=== PATIENT | male | born 1950 | race Caucasian/White ===

== ENCOUNTER → 2021-03-05 10:06 | Outpatient (BNVA) | payer MEDICARE, SELFPAY | PROVIDERS: PCP Internal Medicine; Referring Provider Internal Medicine; Visit Provider Internal Medicine Cardiovascular Disease | DX: I25.10 Atherosclerotic heart disease of native coronary artery without angina pectoris (principal); E78.5 Hyperlipidemia, unspecified; I10 Essential (primary) hypertension; R60.0 Localized edema | CPT/HCPCS: 93005; 99212 ==

== ENCOUNTER → 2021-03-14 09:03 | Outpatient (REF) | payer MEDICARE, SELFPAY ==
--- NOTE | 2021-03-14 09:17 | CA_ITS ---
Transthoracic Echocardiogram Patient (Last, First, Middle): Erik Jung F Gender: Male Date of : 1950 Age: 70 Procedure Date: 03/14/2021 Procedure Type: Transthoracic Echocardiogram Location: OP Height: 182.88 cm Weight: 96.62 kg BSA: 2.19 m2 Heart Rate: bpm BP: 164 / 91 mmHg Aircraft Powertrain Repairer: DOMINIK Referring MD: Rene Diaz MD Panel Instrument Repairer: Rene Diaz MD Symptoms: R60.0 - Localized edema Study Quality: Technically Difficult ECG Rhythm: Sinus Conclusions: - 1. Normal LV systolic function with mild LVH with grade 1 diastolic dysfunction 2. Mild to moderate mitral regurgitation 3. No gross pericardial effusion Findings Left Ventricle Normal left ventricular size and systolic function. There is mildly increased left ventricular wall thickness. The visually estimated ejection fraction is between 55-60%. Spectral Doppler is indicative of an impaired relaxation filling pattern. E/E prime ratio is <8, consistent with normal filling pressures. Evidence suggests grade I (mild) diastolic dysfunction. Right Ventricle Normal right ventricular cavity size and systolic function. Atria The left atrium is normal in size. There is a mobile atrial septum noted. Interatrial shunt cannot be excluded. The right atrium is normal in size. Aortic Valve The aortic valve structure and function is likely normal. There is no aortic valve stenosis. There is trace (trivial) aortic valve regurgitation. Mitral Valve Likely normal mitral valve structure and function. There is mild anterior and posterior mitral leaflet thickening. There is mild to moderate mitral valve regurgitation. There is no mitral valve stenosis. Pulmonic Valve The pulmonic valve was not well visualized. Tricuspid Valve The tricuspid valve was not well visualized. Tricuspid regurgitation envelope is inadequate for calculation of right ventricular systolic pressure. Great Vessels All visible segments of the aorta are normal in size. The pulmonary artery was not well visualized. Venous The inferior vena cava is normal in size and collapses greater than 50% with inspiration. Pericardium/Pleural There is no evidence of pericardial effusion. Prior Study Comparison Changes noted compared to prior study dated: 01/26/2018. Mitral regurgitation noted to be [id number] Measurements M-Mode Liner Measurements Normals - Women/Men AOV Cusps: 2.40 1.5-2.6 cm/m2 2D Linear Measurements IVSd: 1.35 0.6-0.9/0.6-1.0 cm LVIDd: 5.49 3.9-5.3/4.2-5.9 cm LVIDd Index: 2.51 2.4-3.2/2.2-3.1 cm/m2 LVIDs: 4.14 2.0-3.6 cm LVPWd: 1.34 0.7-1.1 cm Ao Root: 4.00 2.1-3.5 cm LA Diam: 4.30 2.7-3.8/3.0-4.0 cm LAIDs Index: 1.96 1.5-2.3 cm/m2 LV Mass: 416.15 67-162/88-224 g LV Mass Index: 190.02 43-95/49-115 g/m2 LVOT Diam: 2.10 3.0+(-)1.3 cm 2D Systolic Function EF 4C: 55.10 >55% EF 2C: 50.90 >55% EF BiP: 54.50 >55% Mitral Valve MV Pk E: 0.53 MV PK A: 0.92 MV Decel Time: 224.00 E/A: 0.60 E'Lateral: 4.68 E'Medial: 4.35 E/E' Med: 12.20 E/E' Lat: 11.30 PHT: 66.00 MVA PHT: 3.33 Decel Jenkins: 2.38 Aortic Valve AoV Pk Rojas: 1.38 AoV Mn Rojas: 1.00 AoV VTI: 0.29 AoV Pk Grad: 8.00 Aov Mn Grad: 4.00 PRASHANT Cont.VTI: 2.90 AI Pk Rojas: 4.04 AI Jenkins: 1.90 LVOT LVOT Pk Rojas: 1.10 LVOT Mn Rojas: 0.79 LVOT VTI: 0.24 LVOT Pk Grad: 5.00 LVOT Mn Grad: 3.00 LVOT Diam: 2.10 LVOT Area: 3.46 Diastolic Function MV Pk E: 0.53 MV Pk A: 0.92 E/A: 0.60 E'Medial: 4.35 E/E' Med: 12.20 E' Laterial: 4.68 E/E' Lat: 11.30 Tricuspid Valve RA Press: 3.00 Great Vessels Aorta Ao Root-2D: 4.00 2.0-3.7 cm Ao Asc: 3.20 2.1-3.4 cm Ao Arch: 3.20 Updated in Other Vendor System with Status of Final Rene Diaz MD electronically signed on 03/15/2021 8:57:25 AM with status of Final
== END ==
LOC: HO.CARD 09:03
PROVIDERS: PCP Internal Medicine; Visit Provider Internal Medicine Cardiovascular Disease
DX: R60.0 Localized edema (principal)
CPT/HCPCS: 93306

== ENCOUNTER → 2021-03-28 11:36 | Outpatient (BNVA) | payer MEDICARE, SELFPAY | PROVIDERS: PCP Internal Medicine; Visit Provider Internal Medicine Cardiovascular Disease | DX: R60.0 Localized edema (principal); I25.10 Atherosclerotic heart disease of native coronary artery without angina pectoris; I10 Essential (primary) hypertension | CPT/HCPCS: Q3014 ==

== ENCOUNTER → 2021-04-17 14:23 | Outpatient (BNVA) | payer MEDICARE, SELFPAY | PROVIDERS: PCP Internal Medicine; Referring Provider Internal Medicine; Visit Provider Internal Medicine Cardiovascular Disease | DX: R60.0 Localized edema (principal); I25.10 Atherosclerotic heart disease of native coronary artery without angina pectoris; I10 Essential (primary) hypertension | CPT/HCPCS: 99212 ==

== ENCOUNTER 2021-07-04 13:49 | Emergency (ER) | payer MEDICARE, SELFPAY ==
--- NOTE | ~2021-07-04 | CT_ITS ---
EXAMINATION: CT HEAD WITHOUT CONTRAST CLINICAL INFORMATION: TIA symptoms COMPARISON: 05/02/2020 TECHNIQUE: Contiguous axial imaging was performed from the skull base to vertex without intravenous contrast. This CT examination was performed using dose optimization techniques as appropriate, variously including the following: * Automated exposure control * Adjustment of mA and/or kV according to patient size (this includes techniques or standardized protocols for targeted exams where dose is matched to indication/reason for exam; i.e. extremities or head) Use of iterative reconstruction technique DLP: 828 mGy-cm. FINDINGS: There is no evidence of acute intracranial hemorrhage or territorial infarction. No abnormal mass effect or midline shift is seen. Ellis to white matter differentiation is well preserved. No extra-axial fluid collections are identified. No hydrocephalus. No significant volume loss. There is no abnormal attenuation within the brain parenchyma. The osseous structures and soft tissues are normal. The mastoid air cells and visualized portions of the paranasal sinuses are well aerated. CT/CT head/brain wo con IMPRESSION: No acute intracranial pathology.
--- NOTE | ~2021-07-04 | XR_ITS ---
EXAMINATION: XR CHEST CLINICAL INFORMATION: Dyspnea. COMPARISON: Chest radiograph dated from 10/10/2013. TECHNIQUE: 2 views of the chest were obtained. FINDINGS: Unchanged appearance of the cardiomediastinal silhouette. There are increased streaky opacities in the lung bases, likely related with subsegmental atelectases or parenchymal scarring. No focal consolidation, pleural effusion or pneumothorax. No acute osseous abnormalities. XR/XR chest 2V IMPRESSION: Subsegmental atelectases and/or parenchymal scarring in the lung bases. No focal consolidation.
[2021-07-04 14:05] VITALS: BP 134/79; PULSE 80; RESP 18; TEMP 36.7; O2SAT 94; BMI 27.7
--- NOTE | 2021-07-04 14:12 | ECG_ITS ---
Test Reason : DYSPNEA Blood Pressure : / mmHG Vent. Rate : 080 BPM Atrial Rate : 080 BPM P-R Int : 154 ms QRS Dur : 112 ms QT Int : 402 ms P-R-T Axes : -01 -40 041 degrees QTc Int : 463 ms Normal sinus rhythm Left axis deviation Voltage criteria for left ventricular hypertrophy Abnormal ECG When compared with ECG of 24-APR-2020 10:42, No significant change was found Referred By: Generic ED Physician Electronically Signed By:LOGAN PARKER
[2021-07-04 15:31] LABS: MANUAL DIFF FLAG NO
[2021-07-04 15:34] LABS: Basophils Percent Auto 0.4 % (0-2); Eosinophils Absolute Auto 0.2 X10*3/uL (0.0-0.4); Eosinophils Percent Auto 1.9 % (0-4); Hematocrit 45.5 % (42-52); Hemoglobin 15.7 g/dl (14.0-18.0); Imm Gran Abs Auto 0.05 X10*3/uL (0.00-0.03); Imm Gran Pct Auto 0.5 % (0.0-0.4); Lymphocytes Absolute Auto 0.9 X10*3/uL (1.2-4.9); Lymphocytes Percent Auto 8.4 % (20-40); Mean Corpuscular HGB Conc 34.5 g/dl (31.0-36.0); Mean Corpuscular Hemoglobin 32.3 pg (27.0-33.0); Mean Corpuscular Volume 93.6 fL (80-98); Mean Platelet Volume 9.5 fL (9.4-12.4); Monocytes Percent Auto 9.5 % (2-11); Neutrophils Percent Auto 79.3 % (45-73); Platelet Count 226 X10*3/uL (160-400); Red Blood Count 4.86 X10*6/uL (4.60-5.80); Red Cell Distribution Width 14.4 % (11.0-16.0); White Blood Count 10.1 X10*3/uL (4.8-10.8)
[2021-07-04 15:47] LABS: Alanine Aminotransferase 29 U/L (0-40); Albumin Level 4.6 g/dL (3.5-5.0); Alkaline Phosphatase 59 U/L (39-117); Anion Gap 14 (12-20); Aspartate Amino Transferase 26 U/L (5-37); Bilirubin Total 0.6 mg/dL (0.0-1.0); Blood Urea Nitrogen 14 mg/dL (9-16); Calcium 9.5 mg/dL (8.4-10.2); Carbon Dioxide 29 mmol/L (22-29); Chloride 103 mmol/L (96-108); Creatinine Clr Calc Pharmacy 83.5; Estimated Glomerular Filt Rate > 60; Glucose Random 107 mg/dL (60-115); Potassium 3.4 mmol/L (3.3-5.1); Sodium 143 mmol/L (135-145); Total Protein 7.2 g/dL (6.5-8.0)
[2021-07-04 15:48] LABS: COVID-19 Test Negative (Negative)
[2021-07-04 18:00] VITALS: BP 174/95; PULSE 81; RESP 19; O2SAT 94
--- NOTE | 2021-07-04 18:50 | ED.GENADULT ---
HPI - General Adult General Chief complaint: Dyspnea Stated complaint: SPURRED SPEACH UNSTEADY Time Seen by Provider: 07/04/21 18:49 Source: patient and family Mode of arrival: ambulatory Limitations: no limitations History of Present Illness HPI narrative: A 71-year-old male came in for evaluation of difficulty breathing last night and episode of abnormal speech noted by the . Patient with history of insomnia, patient last night felt his chest is congested (almost like he is coming down with flu), patient could not sleep last night, patient was tumbling last night, then in the morning patient noted by his that he had slurred speech. Patient also complaining of dyspnea last night mostly orthopnea patient needed multiple pillows to be able to sleep, patient is taking Lasix for lower extremities edema. During the day all the symptoms started to improve gradually, patient now back to his baseline. Patient was seen by Dr. Diaz ( cardiology) had an echocardiogram which appear no significant abnormalities. Related Data Home Medications Medication Instructions Recorded Confirmed trazodone 50 mg tablet 25 mg PO BEDTIME tab 03/28/21 04/17/21 Previous Rx's Medication Instructions Recorded furosemide 20 mg tablet 20 mg PO DAILY #90 tab 02/18/21 amlodipine 5 mg tablet 5 mg PO DAILY #90 tab 03/28/21 carvedilol 12.5 mg tablet (Coreg) 12.5 mg PO BID 90 Days #180 tab 04/17/21 Allergies Allergy/AdvReac Type Severity Reaction Status Date / Time meperidine [Demerol] Allergy Unknown Unknown Verified 07/04/21 14:05 nitroglycerin [NITROGLYCERIN] Allergy Unknown HYPOTENSION, Verified 07/04/21 14:05 no reactions were documented Review of Systems Review of Systems: All other systems are reviewed and are negative Constitutional: Reports as per HPI and Reports no additional constitutional complaints Eyes: Reports as per HPI and Reports no additional eye complaints Reports system reviewed and no additional complaints, except as documented Cardiovascular: Reports as per HPI and Reports no additional cardiovascular complaints Respiratory: Reports as per HPI and Reports no additional respiratory complaints Gastrointestinal: Reports as per HPI and Reports no additional gastrointestinal complaints Genitourinary: Reports no additional female genitourinary complaints Musculoskeletal: Reports no additional musculoskeletal complaints Skin/Breast: Reports system reviewed and no additional complaints, except as docu Psychiatric: Reports no additional psychiatric complaints Endocrine: Reports no additional endocrine complaints Hematologic/Lymphatic: Reports no additional hematologic/lymphatic complaints Allergic/Immunologic: Reports no additional allergic/immunologic complaints Reports system reviewed and no additional complaints, except as documented and Reports Abnormal speech present [facility] Past Medical History Medical History CAD (coronary artery disease) Hyperlipidemia Hypertension Surgical History H/O rectal polypectomy History of surgery Family History Family History Father No problems noted. Mother Heart disease Brother CAD (coronary artery disease) Paternal Uncle Myocardial infarction Social History Social History Alcohol intake: current Alcohol intake frequency: a few times a week Alcohol type: hard liquor Patient Tobacco Use Status: Former Tobacco user Smoked in Last 30 Days: No Advance Directives: Yes Advance Directives Information Provided: Yes Advance Directives on File: No Physical Exam Vital Signs: Vital Signs: Last Vital Signs Temp 98.0 F 07/04/21 20:00 Pulse 83 07/04/21 20:00 Resp 16 07/04/21 20:00 BP 173/102 H 07/04/21 20:00 Pulse Ox 93 07/04/21 20:00 Body Mass Index 27.7 Vital signs have been reviewed as appeared to be correct. Blood pressure normal. Heart rate normal. Respiration rate normal. Temperature normal. Oxygen saturation normal. Appearance: Alert. Oriented X3. No acute distress. Head: Normal external exam. Normocephalic. Atraumatic. No Gorman signs noted. No raccoon eyes noted Eyes: PERRLA. EOMI. Conjunctiva and sclera normal. Eyelids normal. ENT: TM's Normal. Pharynx normal. Uvula midline. Moist mucous membranes. No trismus noted. No drooling noted. No muffled voice noted. Neck: Normal inspection. Neck supple. FROM. No adenopathy. Thyroid Normal. No meningeal signs. No neck mass noted. CVS: Normal heart rate and rhythm. Heart sound normal. No murmurs noted. Pulses normal throughout. Respiratory: No respiratory distress. Painless inspiration. Breath sounds normal. No wheezes/rales/rhonchi noted. Chest nontender. No accessory muscle usage noted or decreased air movement noted. Abdomen: Soft and nontender. Bowel sounds normal in all 4 quadrants. No distention noted. No organomegaly noted. No visible injury noted. Back: No CVA tenderness. Full range of motion noted. Skin: Skin warm and dry. Normal skin color. Normal skin turgor. No rashes/lesions/lacerations noted. Extremities: No lower extremity edema. Extremities exhibit normal range of motion. Extremities nontender. Neuro: Oriented X 3. Cranial nerve exam: II-XII are grossly intact No motor deficit. No sensory deficit. Reflexes normal. NIH Stroke Scale Level of Consciousness: Alert Level of Consciousness Questions: Answers both questions correctly Level of Consciousness Commands: Performs both tasks correctly Best Gaze: Normal Visual: No visual loss Facial Palsy: Normal Motor Arm (Right): No drift Motor Arm (Left): No drift Motor Leg (Right): No drift Motor Leg (Left): No drift Limb Ataxia: Absent Sensory: Normal Best Language: No aphasia Dysarthia: Normal Extinction and Inattention: No abnormality Score: 0 Course Course Course Narrative: Assessment and plan. 71-year-old male with history of chronic insomnia came in with symptoms of orthopnea, was stumbling last night, and noticed to have some difficulty with speech this morning, all symptoms resolved, patient has unremarkable finding today, patient had a recent cardiology evaluation with echo which was unremarkable, CT head/neuro exam is unremarkable, patient do not want stay in the hospital would like to go home. Will discharge the patient to follow-up with PCP. Medical Decision Making Lab Data Lab results reviewed: Yes I reviewed the patient's lab results. Result diagrams: 07/04/21 15:24 07/04/21 15:24 Labs: Lab Results 07/04/21 07/04/21 07/04/21 Range/Units 15:20 15:24 15:24 WBC 10.1 (4.8-10.8) X10*3/uL RBC 4.86 (4.60-5.80) X10*6/uL Hgb 15.7 (14.0-18.0) g/dl Hct 45.5 (42-52) % MCV 93.6 (80-98) fL MCH 32.3 (27.0-33.0) pg MCHC 34.5 (31.0-36.0) g/dl RDW 14.4 (11.0-16.0) % Plt Count 226 (160-400) X10*3/uL MPV 9.5 (9.4-12.4) fL Immature Gran % (Auto) 0.5 H (0.0-0.4) % Neut % (Auto) 79.3 H (45-73) % Lymph % (Auto) 8.4 L (20-40) % Schley % (Auto) 9.5 (2-11) % Eos % (Auto) 1.9 (0-4) % Baso % (Auto) 0.4 (0-2) % Lymph # (Auto) 0.9 L (1.2-4.9) X10*3/uL Schley # (Auto) 1.0 (0.1-1.2) X10*3/uL Eos # (Auto) 0.2 (0.0-0.4) X10*3/uL Baso # (Auto) 0.0 (0.0-0.2) X10*3/uL Abs Immat Gran (auto) 0.05 H (0.00-0.03) X10*3/uL Absolute Neuts (auto) 8.0 (2.0-8.3) X10*3/uL Absolute Nucleated RBC 0.000 (0.0-0.012) X10*3/uL Nucleated RBC % (auto) 0.0 (0.0-0.2) /100WBC Sodium 143 (135-145) mmol/L Potassium 3.4 (3.3-5.1) mmol/L Chloride 103 (96-108) mmol/L Carbon Dioxide 29 (22-29) mmol/L Anion Gap 14 (12-20) BUN 14 (9-16) mg/dL Creatinine 0.89 (0.5-1.4) mg/dL Estim Creat Clear Calc 83.5 Estimated GFR > 60 Random Glucose 107 (60-115) mg/dL Calcium 9.5 (8.4-10.2) mg/dL Total Bilirubin 0.6 (0.0-1.0) mg/dL AST 26 (5-37) U/L ALT 29 (0-40) U/L Alkaline Phosphatase 59 (39-117) U/L Troponin I High Sens (<3.5-35.0) ng/L B-Natriuretic Peptide (<100) pg/mL Total Protein 7.2 (6.5-8.0) g/dL Albumin 4.6 (3.5-5.0) g/dL COVID-19 (ROSIO) Negative (Negative) COVID-19 Clin Com See Note 07/04/21 Range/Units 20:39 WBC (4.8-10.8) X10*3/uL RBC (4.60-5.80) X10*6/uL Hgb (14.0-18.0) g/dl Hct (42-52) % MCV (80-98) fL MCH (27.0-33.0) pg MCHC (31.0-36.0) g/dl RDW (11.0-16.0) % Plt Count (160-400) X10*3/uL MPV (9.4-12.4) fL Immature Gran % (Auto) (0.0-0.4) % Neut % (Auto) (45-73) % Lymph % (Auto) (20-40) % Schley % (Auto) (2-11) % Eos % (Auto) (0-4) % Baso % (Auto) (0-2) % Lymph # (Auto) (1.2-4.9) X10*3/uL Schley # (Auto) (0.1-1.2) X10*3/uL Eos # (Auto) (0.0-0.4) X10*3/uL Baso # (Auto) (0.0-0.2) X10*3/uL Abs Immat Gran (auto) (0.00-0.03) X10*3/uL Absolute Neuts (auto) (2.0-8.3) X10*3/uL Absolute Nucleated RBC (0.0-0.012) X10*3/uL Nucleated RBC % (auto) (0.0-0.2) /100WBC Sodium (135-145) mmol/L Potassium (3.3-5.1) mmol/L Chloride (96-108) mmol/L Carbon Dioxide (22-29) mmol/L Anion Gap (12-20) BUN (9-16) mg/dL Creatinine (0.5-1.4) mg/dL Estim Creat Clear Calc Estimated GFR Random Glucose (60-115) mg/dL Calcium (8.4-10.2) mg/dL Total Bilirubin (0.0-1.0) mg/dL AST (5-37) U/L ALT (0-40) U/L Alkaline Phosphatase (39-117) U/L Troponin I High Sens 29.6 (<3.5-35.0) ng/L B-Natriuretic Peptide < 10 (<100) pg/mL Total Protein (6.5-8.0) g/dL Albumin (3.5-5.0) g/dL COVID-19 (ROSIO) (Negative) COVID-19 Clin Com Imaging Data CT scan - head: Radiologist's impression: No acute intracranial pathology. Chest x-ray: Radiologist's impression: Subsegmental atelectases and/ or parenchymal scarring in the lung bases no focal consolidation. ECG Data Attestation: I personally reviewed and interpreted this ECG as follows: Interpretation: Normal sinus rhythm at 80 beats per minutes, left axis deviation, LVH, no ST-T changes. Discharge Plan Discharge Clinical Impression: Insomnia, Hypertension Patient Disposition: Home, Self-Care Instructions: Insomnia (ED) Prescriptions: No Action furosemide 20 mg tablet 20 mg PO DAILY Qty: 90 RF: 8 trazodone 50 mg tablet 25 mg PO BEDTIME RF: 0 amlodipine 5 mg tablet 5 mg PO DAILY Qty: 90 RF: 1 carvedilol [Coreg] 12.5 mg tablet 12.5 mg PO BID 90 Days Qty: 180 RF: 1 Referrals: Federico Falcon MD [Primary Care Provider] - 2 days
[2021-07-04 20:00] VITALS: BP 173/102; PULSE 83; RESP 16; TEMP 36.7; O2SAT 93
[2021-07-04 21:10] LABS: B Type Natriuretic Peptide < 10 pg/mL (<100); Troponin-I High Sensitivity 29.6 ng/L (<3.5-35.0)
--- NOTE | 2021-07-04 21:25 | PC.NURSE ---
pt denies chest pain and no sob. pt is waiting to go home and feels ready.
== END 2021-07-04 21:58 | disposition home or self-care (01) ==
PROVIDERS: Emergency Provider Emergency Medicine; PCP Internal Medicine
DX: G47.00 Insomnia, unspecified (principal); R06.02 Shortness of breath; R09.89 Other specified symptoms and signs involving the circulatory and respiratory systems; I10 Essential (primary) hypertension; R29.700 NIHSS score 0; I25.10 Atherosclerotic heart disease of native coronary artery without angina pectoris; Z20.822 Contact with and (suspected) exposure to COVID-19; Z79.899 Other long term (current) drug therapy
CPT/HCPCS: 36415; 70450; 71046; 80053; 83880; 84484; 85025; 87635; 93005; 99284

== ENCOUNTER 2021-10-03 10:44 | Outpatient (REF) | payer MEDICARE, SELFPAY ==
--- NOTE | ~2021-10-03 | CT_ITS ---
EXAMINATION: CT SINUS WITHOUT CONTRAST CLINICAL INFORMATION: Chronic sinusitis. COMPARISON: CT scan of the head 07/04/2021. TECHNIQUE: Multidetector helical imaging was performed in the axial plane with generation of coronal and sagittal reformatted images. This CT examination was performed using dose optimization techniques as appropriate, variously including the following: *Automated exposure control *Adjustment of mA and/or kV according to patient size (this includes techniques or standardized protocols for targeted exams where dose is matched to indication/reason for exam; i.e. extremities or head) *Use of iterative reconstruction technique DLP: 133 mGy-cm. FINDINGS: FRONTAL SINUSES AND DRAINAGE PATHWAYS: The right frontal sinus is relatively small. Both frontal sinuses are well-aerated with patent frontoethmoidal recesses. MAXILLARY SINUSES AND DRAINAGE PATHWAYS: The maxillary sinuses are well-developed bilaterally. There is mild polypoid mucoperiosteal thickening along the inferior maxillary sinuses bilaterally. The ostiomeatal complexes are patent bilaterally. ETHMOID SINUSES: The ethmoid sinuses are well-developed bilaterally. There is minimal mucoperiosteal thickening in the anterior right ethmoid air cells. There is trace mucoperiosteal thickening in the posterior ethmoid air cells and the left. SPHENOID SINUSES AND DRAINAGE PATHWAYS: The sphenoid sinuses are well-aerated bilaterally. They are clear with patent sphenoethmoidal recesses. NASAL CAVITY AND NASAL SEPTUM: Anteriorly, the nasal septum is deviated to the right and slightly toward the left more posteriorly. There are no large bony nasal septal spurs. There are no large nasal cavity polyps or masses. ADDITIONAL RELEVANT FINDINGS: The lamina papyracea are intact. The carotid canals are normally covered by bone. The ethmoid roofs are symmetric. There appear to be small residual roots of anterior maxillary teeth bilaterally with root fillings. The TMJs and orbits are normal. The mastoid air cells are clear. There are no acute intracranial findings. CT/CT sinus wo con IMPRESSION: 1. There is no significant active sinus disease. There is mild mucoperiosteal thickening in multiple sinuses as described above. 2. There is deviation of the nasal septum is described above. There are no large nasal septal spurs. 3. The ostiomeatal complexes are patent bilaterally.
== END 2021-10-03 10:45 | disposition home or self-care (01) ==
LOC: HO.CT 10:44
PROVIDERS: PCP Internal Medicine; Visit Provider Internal Medicine
DX: J32.9 Chronic sinusitis, unspecified (principal)
CPT/HCPCS: 70486

== ENCOUNTER → 2021-10-24 08:59 | Outpatient (BNVA) | payer MEDICARE, SELFPAY | PROVIDERS: PCP Internal Medicine; Referring Provider Internal Medicine; Visit Provider Internal Medicine Cardiovascular Disease | DX: I25.10 Atherosclerotic heart disease of native coronary artery without angina pectoris (principal); I10 Essential (primary) hypertension | CPT/HCPCS: 99212 ==

== ENCOUNTER → 2022-10-24 09:00 | Outpatient (BNVA) | payer MEDICARE, SELFPAY | PROVIDERS: PCP Internal Medicine; Referring Provider Internal Medicine; Visit Provider Internal Medicine Cardiovascular Disease | DX: I25.10 Atherosclerotic heart disease of native coronary artery without angina pectoris (principal); I10 Essential (primary) hypertension | CPT/HCPCS: 93005; 99212 ==

== ENCOUNTER 2023-01-07 09:28 | Outpatient (REF) | payer MEDICARE, SELFPAY | END 2023-01-07 09:29 | disposition home or self-care (01) | LOC: HO.LAB 09:28 | PROVIDERS: Absent Provider Internal Medicine Cardiovascular Disease; PCP Internal Medicine; Referring Provider Internal Medicine; Visit Provider Otolaryngology | DX: J31.0 Chronic rhinitis (principal) | CPT/HCPCS: 36415; 82785; 86003 ==

== ENCOUNTER → 2023-03-17 08:24 | Outpatient (BNVA) | payer MEDICARE, SELFPAY | PROVIDERS: PCP Internal Medicine; Visit Provider Nurse Practitioner | DX: Z01.818 Encounter for other preprocedural examination (principal); R19.7 Diarrhea, unspecified; Z86.010 Personal history of colon polyps | CPT/HCPCS: 99202 ==

== ENCOUNTER 2023-04-17 08:42 | Outpatient (REF) | payer MEDICARE, SELFPAY ==
[2023-04-17 14:30] LABS: Alanine Aminotransferase 30 U/L (0-40); Albumin Level 4.2 g/dL (3.5-5.0); Alkaline Phosphatase 59 U/L (39-117); Anion Gap 16 (12-20); Aspartate Amino Transferase 29 U/L (5-37); Bilirubin Total 0.6 mg/dL (0.0-1.0); Blood Urea Nitrogen 9 mg/dL (9-16); C Reactive Protein 0.24 mg/dL (< or = 0.50); Calcium 9.6 mg/dL (8.4-10.2); Carbon Dioxide 27 mmol/L (22-29); Chloride 105 mmol/L (96-108); Estimated Glomerular Filt Rate > 60; Glucose Random 121 mg/dL (60-115); Potassium 3.2 mmol/L (3.3-5.1); Sodium 145 mmol/L (135-145); Total Protein 6.8 g/dL (6.5-8.0)
[2023-04-17 14:44] LABS: TSH reflex Free T4 1.71 uIU/mL (0.32-4.0)
[2023-04-22 05:43] LABS: Transglutaminase Ab IgG <1.0 U/mL; Transglutaminase IgA <1.0 U/mL
== END 2023-04-17 08:43 | disposition home or self-care (01) ==
LOC: HO.LAB 08:42
PROVIDERS: Nurse Practitioner; PCP Internal Medicine; Visit Provider Internal Medicine
DX: Z01.818 Encounter for other preprocedural examination (principal); D12.6 Benign neoplasm of colon, unspecified; R19.7 Diarrhea, unspecified
CPT/HCPCS: 36415; 80053; 84443; 85025; 86140; 86364

== ENCOUNTER 2023-04-17 09:35 | Outpatient (REF) | payer MEDICARE, SELFPAY ==
[2023-04-23 17:13] LABS: Pancreatic Elastase-1 212 mcg/g
== END 2023-04-17 09:36 | disposition home or self-care (01) ==
LOC: HO.LNP 09:35
PROVIDERS: Visit Provider Nurse Practitioner
DX: Z01.818 Encounter for other preprocedural examination (principal); R19.7 Diarrhea, unspecified; D12.6 Benign neoplasm of colon, unspecified
CPT/HCPCS: 82656; 87493; 87507

== ENCOUNTER 2023-04-24 09:11 | Outpatient (AMB) | payer MEDICARE, SELFPAY ==
--- NOTE | 2023-04-24 09:13 | MHC.OFFVIS ---
Intake Vital Signs 04/24/23 09:18 Height 6 ft 1 in Weight 214 lb BMI 28.2 BP 159/85 H Blood Pressure Location Lt brachial Position Sitting Pulse 81 Intake Visit Reasons: 4 week follow up diarrhea Intake Note: Patient 4 week follow up for diarrhea. Patient denies any GI issues. 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 He has tended towards diarrhea over his life but not like this. It is changed from his past and it has a foul odor and is pasty. He can not ID any medication change, diet changes, sick contacts that precedes this. He will have upper abdominal pain prior to the diarrheal movements that resolved after wards. He has fecal urgency. He has been taking imodium OTC for this with good help. No know FHX of food allergies, mother may have had GB problems. No wt loss or alarm sx. He denies any nausea vomiting or severe abdominal pain. There are no prior problems with anesthesia or sedation; except for demerol. His cardiac problems are well controlled and he denies any respiratory problems. No ID problems. He had TA in 2018 no know fHX CRC or polyps. Because of the foul odor we will get a GI panel to rule out an infection, a basic celiac workup, a thyroid, and of course basic labs for preop clearance. He can continue uses Imodium for now. Return office visit in 4 weeks to go over the results (2) Diarrhea: Code(s): R19.7 - Diarrhea, unspecified (3) Tubular adenoma of colon: Code(s): D12.6 - Benign neoplasm of colon, unspecified Orders: Orders Comprehensive Met. Panel Today D12.6 - Benign neoplasm of colon, unspecified, R19.7 - Diarrhea, unspecified, Z01.818 - Encounter for other preprocedural examination Complete Blood Count Auto Diff Today D12.6 - Benign neoplasm of colon, unspecified, R19.7 - Diarrhea, unspecified, Z01.818 - Encounter for other preprocedural examination GI Panel Today D12.6 - Benign neoplasm of colon, unspecified, R19.7 - Diarrhea, unspecified, Z01.818 - Encounter for other preprocedural examination Pancreatic Elastase-1 Today D12.6 - Benign neoplasm of colon, unspecified, R19.7 - Diarrhea, unspecified, Z01.818 - Encounter for other preprocedural examination TSH reflex Free T4 Today D12.6 - Benign neoplasm of colon, unspecified, R19.7 - Diarrhea, unspecified, Z01.818 - Encounter for other preprocedural examination Transglutaminase IgA Today D12.6 - Benign neoplasm of colon, unspecified, R19.7 - Diarrhea, unspecified, Z01.818 - Encounter for other preprocedural examination Transglutaminase Ab IgG Today D12.6 - Benign neoplasm of colon, unspecified, R19.7 - Diarrhea, unspecified, Z01.818 - Encounter for other preprocedural examination CDiff Gene PCR Today D12.6 - Benign neoplasm of colon, unspecified, R19.7 - Diarrhea, unspecified, Z01.818 - Encounter for other preprocedural examination C Reactive Protein Today R19.7 - Diarrhea, unspecified Medications: New peg 3350-electrolytes 236-22.74-6.74 -5.86 gram (Golytely) until fecal effluent is clear; do not exceed a total volume of 2,000 mL 240 mL PO Q10M 4,000 mL 0RF 1 day Z12.11 - Encounter for screening for malignant neoplasm of colon LABS: Laboratory Tests 04/17/23 04/17/23 04/17/23 08:00 08:00 08:56 WBC 5.9 Hgb 15.9 Hct 45.7 Estimated GFR Total Bilirubin AST ALT Alkaline Phosphata se C-Reactive Protein TSH Stool Pancreat Margo stase 212 Tiss Transglutamin IgG Tiss Transglutamin IgA C. difficile Tox B Gene NEGATIVE 04/17/23 04/17/23 08:56 08:56 WBC Hgb Hct Estimated GFR > 60 Total Bilirubin 0.6 AST 29 ALT 30 Alkaline Phosphata se 59 C-Reactive Protein 0.24 TSH 1.71 Stool Pancreat Margo stase Tiss Transglutamin IgG <1.0 Tiss Transglutamin IgA <1.0 C. difficile Tox B Gene RAST REPORT SHOWS NO FOOD ALLERGIES COLONOSCOPY Not yet scheduled BIOPSY TODAY'S VISIT. 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 We will start by trying 1 imodium a day and see if we can titrate this. He had been taking it only when he had diarrhea and not 1 dose every day to try to keep it under control so will see if we can work with this since he actually likes this medication. ROV 6-8 weeks. PFSH Medical History CAD (coronary artery disease) Hyperlipidemia Hypertension Surgical History H/O rectal polypectomy History of esophagogastroduodenoscopy (EGD) History of surgery Hx of colonoscopy Family History Father No problems noted. Mother Heart disease Brother CAD (coronary artery disease) Paternal Uncle Myocardial infarction Social History Housing: House Alcohol intake: current Alcohol intake frequency: a few times a week Alcohol type: hard liquor Patient Tobacco Use Status: Former Tobacco user e-Cigarette/Vaping Use: Never Used Second Hand Smoke Exposure: No service: No Current occupational status: retired Cognitive needs: No Hearing needs: No Vision needs: No Review of Systems Const Denies fatigue, Denies fever(s), Denies night sweats, Denies poor appetite and Denies weight loss ENT Reports Normal hearing present, Denies dental pain, Denies dysphagia, Denies hearing loss, Denies mouth pain, Denies odynophagia, Denies throat swelling, Denies tongue swelling and Reports other (Dentition adequate) Card Reports no additional complaints Resp Reports no additional complaints GI Denies abdominal pain, Denies melena, Denies bloating, Denies hematochezia, Denies constipation, Denies GI cramping, Denies dysphagia, Denies excessive flatus, Denies early satiety, Denies heartburn, Reports diarrhea, Denies nausea, Denies odynophagia, Denies vomiting and Denies hematemesis Skin/Breast Denies pruritus, Denies lesions, Denies rash and Denies jaundice Neuro Reports Normal hearing present and Denies Abnormal speech present Endo Denies fatigue Aller/Immun Denies throat swelling and Denies tongue swelling Physical Exam Vital Signs: Last Vital Signs Pulse 81 04/24/23 09:18 BP 159/85 H 04/24/23 09:18 BMI result Body Mass Index 28.2 Const General: cooperative, no acute distress, well developed and well groomed Nutritional Appearance: average body habitus and well nourished Orientation/consciousness: oriented to person, oriented to place and oriented to time Limitations: No language barrier HEENT Head: Yes normocephalic and Yes atraumatic Eyes General: appearance normal, both eyes and all related structures Pupils: Equal, round and reactive pupils present Neck Neck: Yes normal visual inspection and Yes no lymphadenopathy Thyroid: Thyroid normal Resp Effort & Inspection: normal respiratory effort and able to speak in complete sentences Auscultation: clear to auscultation bilaterally Cardio Rate: regular rate Rhythm: regular rhythm Heart sounds: Normal, physiologic split S2 sound present Peripheral pulses: radial pulses present and posterior tibial pulses present GI Inspection: No distended and No Abdominal panniculus present Palpation (GI): Soft to palpation, nontender, no guarding, not rigid and No hepatosplenomegaly present Percussion: Yes normal to percussion Auscultation: normal bowel sounds Rectal Exam - Male: Yes deferred Skin General skin exam: no rashes or lesions noted, turgor normal, skin not dry, no jaundice, No spider nevi and no striae Rashes: no rashes Nails: normal Neuro General: oriented to person, oriented to place and oriented to time Cranial nerves: Yes Equal, round and reactive pupils present and Yes Normal hearing present Speech: No Abnormal speech present Extrem General: Yes normal to inspection, No clubbing, No cyanosis and No edema Psych Appearance: grossly normal and well kempt Mental Status: mental status grossly normal Speech and movement: Normal speech and movement present Affect: normal affect Attitude: cooperative Thought process: Normal thought process present and not confabulating Thought content: Normal thought content present Insight: Fair insight present (Psych) Judgement: Fair judgement present (Psych) Results Reviewed Results Reviewed: Laboratory Tests 04/17/23 04/17/23 04/17/23 08:00 08:00 08:56 WBC 5.9 Hgb 15.9 Hct 45.7 Estimated GFR Total Bilirubin AST ALT Alkaline Phosphatase C-Reactive Protein TSH Stool Pancreat Elastase 212 Tiss Transglutamin IgG Tiss Transglutamin IgA C. difficile Tox B Gene NEGATIVE 04/17/23 04/17/23 08:56 08:56 WBC Hgb Hct Estimated GFR > 60 Total Bilirubin 0.6 AST 29 ALT 30 Alkaline Phosphatase 59 C-Reactive Protein 0.24 TSH 1.71 Stool Pancreat Elastase Tiss Transglutamin IgG <1.0 Tiss Transglutamin IgA <1.0 C. difficile Tox B Gene RAST REPORT SHOWS NO FOOD ALLERGIES Assessment & Plan Assessment & Plan (1) Diarrhea: Code(s): R19.7 - Diarrhea, unspecified Plan: COLONOSCOPY Not yet scheduled BIOPSY TODAY'S VISIT. 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 We will start by trying 1 imodium a day and see if we can titrate this. He had been taking it only when he had diarrhea and not 1 dose every day to try to keep it under control so will see if we can work with this since he actually likes this medication. ROV 6-8 weeks. (2) Tubular adenoma of colon: Code(s): D12.6 - Benign neoplasm of colon, unspecified Coding Level of Care Code Est Pt Level 3 (29410) Diagnoses Diarrhea R19.7 Tubular adenoma of colon D12.6
[2023-04-24 09:18] VITALS: BP 159/85; PULSE 81; BMI 28.2
== END 2023-04-24 09:49 | disposition home or self-care (01) ==
PROVIDERS: PCP Internal Medicine; Visit Provider Nurse Practitioner
DX: R19.7 Diarrhea, unspecified (principal); D12.6 Benign neoplasm of colon, unspecified
CPT/HCPCS: 99213

== ENCOUNTER → 2023-04-24 09:11 | Outpatient (BNVA) | payer MEDICARE, SELFPAY | PROVIDERS: PCP Internal Medicine; Visit Provider Nurse Practitioner | DX: R19.7 Diarrhea, unspecified (principal); D12.6 Benign neoplasm of colon, unspecified | CPT/HCPCS: 99212 ==

== ENCOUNTER 2023-06-10 09:20 | Outpatient (AMB) | payer MEDICARE, SELFPAY ==
--- NOTE | 2023-06-10 09:23 | MHC.OFFVIS ---
Intake Vital Signs 06/10/23 09:57 Height 6 ft 1 in Weight 221 lb 12.56 oz BMI 29.3 BP 158/81 H Blood Pressure Location Lt brachial Position Sitting Pulse 74 Intake Visit Reasons: 7 week follow up Intake Note: Patient returns to in office visit 7 weeks follow up of diarrhea. CC: Patient reports he continues to have diarrhea, abdominal cramps, and GERD. 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 We will start by trying 1 imodium a day and see if we can titrate this.? He had been taking it only when he had diarrhea and not 1 dose every day to try to keep it under control so will see if we can work with this since he actually likes this medication. ROV 6-8 weeks. (2) Tubular adenoma of colon: ?Code(s): D12.6 - Benign neoplasm of colon, unspecified LABS: COLONOSCOPY BIOPSY TODAY'S VISIT. He has not heard re: colonoscopy. He has hx of TA in the past. Diarrhea has worsened as he has less warning. He is not doing well on imodium, so we will move him along to a trial of Carafate. Will get GI panel, fecal calprotectin, CRP, pancreatic elastase. FOr now starting carafate and titrating to affect her side effect. Sent another not for schedulers to try to get his procedures booked. ROV 3 weeks. COUNT INCLUDES [facility] Medical History CAD (coronary artery disease) Hyperlipidemia Hypertension Surgical History H/O rectal polypectomy History of esophagogastroduodenoscopy (EGD) History of surgery Hx of colonoscopy Family History Father No problems noted. Mother Heart disease Brother CAD (coronary artery disease) Paternal Uncle Myocardial infarction Social History Housing: House Alcohol intake: current Alcohol intake frequency: a few times a week Alcohol type: hard liquor Patient Tobacco Use Status: Former Tobacco user e-Cigarette/Vaping Use: Never Used Second Hand Smoke Exposure: No service: No Current occupational status: retired Cognitive needs: No Hearing needs: No Vision needs: No Review of Systems Const Denies fatigue, Denies fever(s), Denies night sweats, Denies poor appetite and Denies weight loss ENT Reports Normal hearing present, Denies dental pain, Denies dysphagia, Denies hearing loss, Denies mouth pain, Denies odynophagia, Denies throat swelling, Denies tongue swelling and Reports other (Dentition adequate) Card Reports no additional complaints Resp Reports no additional complaints GI Reports abdominal pain, Denies melena, Reports bloating, Denies hematochezia, Denies constipation, Denies GI cramping, Denies dysphagia, Denies excessive flatus, Denies early satiety, Denies heartburn, Reports diarrhea, Denies nausea, Denies odynophagia, Denies vomiting and Denies hematemesis Skin/Breast Denies pruritus, Denies lesions, Denies rash and Denies jaundice Neuro Reports Normal hearing present and Denies Abnormal speech present Endo Denies fatigue Aller/Immun Denies throat swelling and Denies tongue swelling Physical Exam Vital Signs: Last Vital Signs Pulse 74 06/10/23 09:57 BP 158/81 H 06/10/23 09:57 BMI result Body Mass Index 29.3 Const General: cooperative, no acute distress, well developed and well groomed Nutritional Appearance: well nourished and overweight Orientation/consciousness: oriented to person, oriented to place and oriented to time Limitations: No language barrier and ambulation with cane HEENT Head: Yes normocephalic and Yes atraumatic Eyes General: appearance normal, both eyes and all related structures Pupils: Equal, round and reactive pupils present Neck Neck: Yes normal visual inspection and Yes no lymphadenopathy Thyroid: Thyroid normal Resp Effort & Inspection: normal respiratory effort and able to speak in complete sentences Auscultation: clear to auscultation bilaterally Cardio Rate: regular rate Rhythm: regular rhythm Heart sounds: Normal, physiologic split S2 sound present Peripheral pulses: radial pulses present and posterior tibial pulses present GI Inspection: No distended and No Abdominal panniculus present Palpation (GI): Soft to palpation, nontender, no guarding, not rigid and No hepatosplenomegaly present Percussion: Yes normal to percussion Auscultation: normal bowel sounds Rectal Exam - Male: Yes deferred Skin General skin exam: no rashes or lesions noted, turgor normal, skin not dry, no jaundice, No spider nevi and no striae Rashes: no rashes Nails: normal Neuro General: oriented to person, oriented to place and oriented to time Cranial nerves: Yes Equal, round and reactive pupils present and Yes Normal hearing present Speech: No Abnormal speech present Extrem General: Yes normal to inspection, No clubbing, No cyanosis and No edema Psych Appearance: grossly normal and well kempt Mental Status: mental status grossly normal Speech and movement: Normal speech and movement present Affect: normal affect Attitude: cooperative Thought process: Normal thought process present and not confabulating Thought content: Normal thought content present Insight: Limited insight present (Psych) Judgement: Limited judgement present (Psych) Assessment & Plan Assessment & Plan (1) Diarrhea: Code(s): R19.7 - Diarrhea, unspecified Plan: COLONOSCOPY BIOPSY TODAY'S VISIT. He has not heard re: colonoscopy. He has hx of TA in the past. Diarrhea has worsened as he has less warning. He is not doing well on imodium, so we will move him along to a trial of Carafate. Will get GI panel, fecal calprotectin, CRP, pancreatic elastase. FOr now starting carafate and titrating to affect her side effect. Sent another not for schedulers to try to get his procedures booked. ROV 3 weeks. (2) Tubular adenoma of colon: Code(s): D12.6 - Benign neoplasm of colon, unspecified Orders: Orders C Reactive Protein 06/10/23 R19.7 - Diarrhea, unspecified GI Panel 06/10/23 R19.7 - Diarrhea, unspecified Calprotectin, Fecal 06/10/23 R19.7 - Diarrhea, unspecified Medications: New sucralfate (Carafate) 2 grams (2 x 1 gram) PO QNOON 60 tabs 3RF R19.7 - Diarrhea, unspecified Discontinued diphenoxylate-atropine 2.5-0.025 mg Discontinued Reason: Doctor's Order 1 tab PO TID PRN 20 tabs 0RF diarrhea Coding Level of Care Code Est Pt Level 4 (48191) Diagnoses Diarrhea R19.7 Tubular adenoma of colon D12.6
[2023-06-10 09:57] VITALS: BP 158/81; PULSE 74; BMI 29.3
== END 2023-06-10 10:33 | disposition home or self-care (01) ==
PROVIDERS: PCP Internal Medicine; Visit Provider Nurse Practitioner
DX: R19.7 Diarrhea, unspecified (principal); D12.6 Benign neoplasm of colon, unspecified
CPT/HCPCS: 99214

== ENCOUNTER → 2023-06-10 09:20 | Outpatient (BNVA) | payer MEDICARE, SELFPAY | PROVIDERS: PCP Internal Medicine; Visit Provider Nurse Practitioner | DX: R19.7 Diarrhea, unspecified (principal); Z86.010 Personal history of colon polyps | CPT/HCPCS: 99212 ==

== ENCOUNTER 2023-07-02 11:26 | Outpatient (REF) | payer MEDICARE, SELFPAY ==
[2023-07-02 12:34] LABS: C Reactive Protein 0.32 mg/dL (< or = 0.50)
== END 2023-07-02 11:27 | disposition home or self-care (01) ==
LOC: HO.LAB 11:26
PROVIDERS: PCP Internal Medicine; Visit Provider Nurse Practitioner
DX: R19.7 Diarrhea, unspecified (principal)
CPT/HCPCS: 36415; 86140

== ENCOUNTER 2023-07-13 09:34 | Outpatient (REF) | payer MEDICARE, SELFPAY ==
[2023-07-13 11:49] LABS: Leukocytes Stool Qualitative NEGATIVE (NEGATIVE)
[2023-07-13 11:52] LABS: CDiff Gene PCR NEGATIVE (Negative)
[2023-07-13 16:11] LABS: Adenovirus F 40/41 Not Detected (Not Detect.); Astrovirus Not Detected (Not Detect.); Campylobacter Not Detected (Not Detect.); Cryptosporidium Not Detected (Not Detect.); Cyclospora cayetanensis Not Detected (Not Detect.); E. coli EAEC Not Detected (Not Detect.); E. coli EPEC Not Detected (Not Detect.); E. coli ETEC Not Detected (Not Detect.); E. coli STEC Not Detected (Not Detect.); Entamoeba histolytica Not Detected (Not Detect.); Giardia lamblia Not Detected (Not Detect.); Norovirus GI/GII Not Detected (Not Detect.); Plesiomonas shigelloides Not Detected (Not Detect.); Rotavirus A Not Detected (Not Detect.); Salmonella Not Detected (Not Detect.); Sapovirus Not Detected (Not Detect.); Shigella sp./EIEC Not Detected (Not Detect.); Vibrio Not Detected (Not Detect.); Vibrio Cholerae Not Detected (Not Detect.); Yersinia enterocolitica Not Detected (Not Detect.)
[2023-07-18 22:04] LABS: Calprotectin, Fecal 31 mcg/g
[2023-07-21 19:08] LABS: Pancreatic Elastase-1 >500 mcg/g
== END 2023-07-13 09:35 | disposition home or self-care (01) ==
LOC: HO.LNP 09:34
PROVIDERS: PCP Internal Medicine; Visit Provider Nurse Practitioner
DX: Z01.818 Encounter for other preprocedural examination (principal); D12.6 Benign neoplasm of colon, unspecified; R19.7 Diarrhea, unspecified
CPT/HCPCS: 82656; 83993; 87493; 87507; 89055

== ENCOUNTER → 2023-07-23 06:58 | Outpatient (BNV) | payer MEDICARE, SELFPAY | PROVIDERS: PCP Internal Medicine; Visit Provider Internal Medicine Gastroenterology | DX: K52.9 Noninfective gastroenteritis and colitis, unspecified (principal); D12.5 Benign neoplasm of sigmoid colon; K64.4 Residual hemorrhoidal skin tags | CPT/HCPCS: 45385 ==

== ENCOUNTER → 2023-07-23 06:58 | Day surgery (SDC) | payer MEDICARE, SELFPAY ==
[2023-07-21 13:21] VITALS: BMI 29.3
--- NOTE | 2023-07-22 12:07 | P.CONAN_ITS ---
Documented by User: Vira Kumar NP 07/22/23 12:09 HPI - Anesthesia Eval Consult details Narrative: 73yo M for Colonoscopy Stable at annual cardiac visit 10/2022 [facility] Active Problems Active Problems: All Active Problems (Updated 03/17/23 @ 08:52 by LARRY Anaya) Pre-op examination (Acute) Diarrhea (Acute) Tubular adenoma of colon (Acute) Low back pain (Acute) Sinusitis (Acute) Edema of both lower extremities (Acute) Physical exam (Acute) Hyperlipidemia (Acute) CAD (coronary artery disease) (Acute) Hypertension (Acute) Past Medical History Medical History Hyperlipidemia CAD (coronary artery disease) Hypertension Family History Family History Father No problems noted. Mother Heart disease Brother CAD (coronary artery disease) Paternal Uncle Myocardial infarction Surgical History Surgical History Hx of cardiac catheterization Hx of colonoscopy History of esophagogastroduodenoscopy (EGD) History of surgery H/O rectal polypectomy Social History Social History Housing: House Alcohol intake: current Alcohol intake frequency: a few times a week Alcohol type: hard liquor Patient Tobacco Use Status: Former Tobacco user e-Cigarette/Vaping Use: Never Used Second Hand Smoke Exposure: No Are you DNR?: No Advance Directives: No Advance Directives Information Provided: Yes Nutrition Risks: No Nutritional Risk service: No Current occupational status: retired Cognitive needs: No Hearing needs: No Vision needs: No Meds Allergies Allergy/AdvReac Type Severity Reaction Status Date / Time meperidine [Demerol] Allergy Unknown Unknown Verified 07/23/23 08:15 nitroglycerin [NITROGLYCERIN] Allergy Unknown HYPOTENSION, Verified 07/23/23 08:15 no reactions were documented Home Medications Medication Instructions Recorded Confirmed Last Taken Type trazodone 50 mg tablet 25 mg PO BEDTIME 03/28/21 07/21/23 Unknown History hydroxyzine HCl 25 mg tablet 25 mg PO BID 03/17/23 07/21/23 Unknown History loperamide 2 mg capsule (Imodium 2 mg PO Q6H PRN loose stools 03/17/23 07/21/23 Unknown History A-D) pramipexole 0.5 mg tablet 0.5 mg PO BID 03/17/23 07/21/23 Unknown History hydrochlorothiazide 25 mg tablet 25 mg PO DAILY 07/21/23 07/21/23 Unknown History Exam Exam Date and Time: July 22, 2023 1207 Height,Weight and Vital Signs: Height 6 ft 1 in Weight 100.698 kg Pertinent Lab Results Pertinent Lab Results: Laboratory Tests 04/17/23 08:56 WBC 5.9 Hgb 15.9 Hct 45.7 Plt Count 229 Sodium 145 Potassium 3.2 L Chloride 105 Carbon Dioxide 27 BUN 9 Creatinine 0.87 Narrative Narrative: EKG 10/2022 normal sinus rhythm with LVH with left axis deviation Assessment and Plan Assessment Anesthesia Assessment: Chart Reviewed Documented by User: Huyen Ellington MD 07/23/23 08:17 PMFSH Past Medical History Medical History Hyperlipidemia CAD (coronary artery disease) Hypertension Family History Family History Father No problems noted. Mother Heart disease Brother CAD (coronary artery disease) Paternal Uncle Myocardial infarction Family history of problems with anesthesia: No Surgical History Surgical History Hx of cardiac catheterization Hx of colonoscopy History of esophagogastroduodenoscopy (EGD) History of surgery H/O rectal polypectomy History of Problems with Anesthesia: No Social History Social History Housing: House Alcohol intake: current Alcohol intake frequency: a few times a week Alcohol type: hard liquor Patient Tobacco Use Status: Former Tobacco user e-Cigarette/Vaping Use: Never Used Second Hand Smoke Exposure: No Are you DNR?: No Advance Directives: No Advance Directives Information Provided: Yes Nutrition Risks: No Nutritional Risk service: No Current occupational status: retired Cognitive needs: No Hearing needs: No Vision needs: No Meds Allergies Allergy/AdvReac Type Severity Reaction Status Date / Time meperidine [Demerol] Allergy Unknown Unknown Verified 07/23/23 08:15 nitroglycerin [NITROGLYCERIN] Allergy Unknown HYPOTENSION, Verified 07/23/23 08:15 no reactions were documented Home Medications Medication Instructions Recorded Confirmed Last Taken Type trazodone 50 mg tablet 25 mg PO BEDTIME 03/28/21 07/21/23 Unknown History hydroxyzine HCl 25 mg tablet 25 mg PO BID 03/17/23 07/21/23 Unknown History loperamide 2 mg capsule (Imodium 2 mg PO Q6H PRN loose stools 03/17/23 07/21/23 Unknown History A-D) pramipexole 0.5 mg tablet 0.5 mg PO BID 03/17/23 07/21/23 Unknown History hydrochlorothiazide 25 mg tablet 25 mg PO DAILY 07/21/23 07/21/23 Unknown History Exam Airway Mallampati Class: II TM Dist: >3cm Neck ROM: Full Denture: Upper and Lower Heart: rrr Lungs: cta Assessment and Plan Assessment Anesthesia Assessment: Anesthesia Plan Discussed Final Anesthetic Review Family History of Problems with Anesthesia: No History of Problems with Anesthesia: No NPO: Yes ASA Class: III (JARVIS not wellcontrolled , took both b.p meds at 6 AM today. diastolic 104 repeated both arms ) Final Preanesthetic Review: No Changes in Pt Med Stat, Meds/Allgs Chart Reviewed, Consent Obtained/Reviewed and Anes Risks/Benef Reviewed Patient Risk: Intermediate Procedure Risk: Low Anesthetic Plan Anesthetic Plan: MAC: Disposition: Standard PACU
[2023-07-23] MEDS: Lactated Ringers 1,000 ML 100 ML IVCONT (07:53)
[2023-07-23 08:13] VITALS: BP 183/104; PULSE 74; RESP 18; TEMP 36.8; O2SAT 96
--- NOTE | 2023-07-23 08:14 | MHC.SHP ---
Pre-Procedural Eval Section A Date of Service: 07/23/23 Section B Chief Complaint: Benign neoplasm of colon, unspecified, Diarrhea Relevant Family History (Specify if Yes): No Relevant Social History: None Present Medications: see Short Stay Collaborative assessment Medical History: Significant History (Hyperlipidemia CAD (coronary artery disease) Hypertension) History of Previous Operations: Relevant previous surgery/procedure and date(s) (Hx of cardiac catheterization Hx of colonoscopy History of esophagogastroduodenoscopy (EGD) History of surgery H/O rectal polypectomy) Allergies: Allergies Allergy/AdvReac Type Severity Reaction Status Date / Time meperidine [Demerol] Allergy Unknown Unknown Verified 06/10/23 09:58 nitroglycerin [NITROGLYCERIN] Allergy Unknown HYPOTENSION, Verified 06/10/23 09:58 no reactions were documented Review of Systems Sugical H&P ROS: Negative: Constitution, Cardiovascular, Respiratory, Neurological, Psychiatric, Hem-Onc, Allergic/Immunologic, Gastrointestinal, Genitourinary, Musculoskeletal, Integumentary, Endocrine and Eyes/Ears/Nose/Throat Exam Surgical H&P Exam: Normal: HEENT, Normal: Heart, Normal: Lungs, Normal: Extremities, Normal: Abdomen, Normal: Skin and Normal: Neurological Plan Diagnosis/Plan: Unchanged I have reviewed the history and physical and performed a pertinent physical examination on my patient. No changes have occurred unless specified. fecal mumtaz- neg, c diff and GI stool panel neg, normal elastase , nml tsh and neg celiac panel Time Spent With Patient Time: Total time managing care of this patient today ____ minutes.
--- NOTE | 2023-07-23 08:20 | W.PM.OPN ---
Operative Note Operative Note Date of Service: 07/23/23 Narrative: Operative Information Procedure Description: Colonoscopy Indication: diarrhea Anesthesia: MAC COLONOSCOPY Instrument: Olympus variable stiffness pediatric scope 190L Colonoscopy Monitoring: Vital signs and clinical assessment, continuous EKG monitoring, Pulse oximetry, Carbon Dioxide monitoring and blood pressure monitoring were done throughout the procedure. Colon withdrawal time was 16 minutes. Procedure: The patient was placed in the left lateral decubitis position and pre-procedure medications were administered. After a digital rectal examination of the ano-rectum, the video colonoscope was inserted into the rectum and advanced through the colon to the cecum/TI. The colonoscope was slowly withdrawn in a retrograde panoramic fashion and the colon mucosa was carefully examined including a retroflexed view of the rectum. Findings and interventions are described below. Procedure Difficulty: easy Findings: Terminal Ileum-normal, random bx taken random colon bx taken Cecum:normal Ascending Colon: normal Transverse Colon -normal Descending Colon:normal Sigmoid Colon: mild diverticulosis, x2 polyps noted 12-16 mm in size, one was sessile and the other pedunculated, both removed with cold snare and one clip applied over one area for hemostasis Rectum: Retroflexion with small internal hemorrhoids, grade I with skin tags Anorectum - normal Colon preparation: Pickens Bowel Preparation Scale Right colon; 2 Transverse colon: 3 Left colon; 3 (0 = Unprepared colon segment with mucosa not seen due to solid stool that cannot be cleared. 1 = Portion of mucosa of the colon segment seen, but other areas of the colon segment not well seen due to staining, residual stool and/or opaque liquid. 2 = Minor amount of residual staining, small fragments of stool and/or opaque liquid, but mucosa of colon segment seen well. 3 = Entire mucosa of colon segment seen well with no residual staining, small fragments of stool or opaque liquid) Impression and Post Procedure Diagnosis: polyps internal hemorrhoids diverticular disease Plan: High fiber diet leaflet Avoid straining at stool, epsom salts and sitz bath, anusol supps or cream Repeat Colonoscopy in 1-2 years due to polyps or earlier if clinically indicated if diarrhea persists then consider EGD to r/o enteropathy or gastropathy Above findings were reviewed with the patient and relevant handouts were provided if indicated.
[2023-07-23 08:59] VITALS: BP 133/81; PULSE 80; RESP 20; TEMP 36.6; O2SAT 95
[2023-07-23 09:14] VITALS: BP 121/75; PULSE 74; RESP 18; TEMP 37.1; O2SAT 95
== END | disposition home or self-care (01) ==
PROVIDERS: PCP Internal Medicine; Visit Provider Internal Medicine Gastroenterology
PROC: 0DJD8ZZ Inspection of Lower Intestinal Tract, Via Natural or Artificial Opening Endoscopic (ICD-10-PCS; CPT 45378; principal; 2023-07-23 09:00)
DX: D12.5 Benign neoplasm of sigmoid colon (principal); K57.30 Diverticulosis of large intestine without perforation or abscess without bleeding; K64.0 First degree hemorrhoids; K64.4 Residual hemorrhoidal skin tags; R19.7 Diarrhea, unspecified; K21.9 Gastro-esophageal reflux disease without esophagitis; Z86.010 Personal history of colon polyps; I10 Essential (primary) hypertension; E78.5 Hyperlipidemia, unspecified; Z87.891 Personal history of nicotine dependence
CPT/HCPCS: 45380; 45385; 88305

== ENCOUNTER 2023-07-31 08:11 | Outpatient (AMB) | payer MEDICARE, SELFPAY ==
--- NOTE | 2023-07-31 08:16 | A.OFFVIS_ITS ---
Intake Vital Signs 07/31/23 08:36 Height 6 ft 1 in Weight 221 lb 5.506 oz BMI 29.2 BP 152/84 H Blood Pressure Location Rt brachial Position Sitting Pulse 69 Intake Visit Reasons: s/p sonia Jasso Intake Note: Patient presents to in office visit today in follow up of colonoscopy. CC: Patient underwent colonoscopy with Dr Jasso on 07/23/23. Allergies meperidine [Demerol] Allergy (Unknown, Verified 08/24/23 08:30) Unknown nitroglycerin [NITROGLYCERIN] Allergy (Unknown, Verified 08/24/23 08:30) HYPOTENSION, no reactions were documented HPI s/p sonia Jasso HPI Details Assessment & Plan (1) Diarrhea: Code(s): R19.7 - Diarrhea, unspecified Plan: He has not heard re: colonoscopy. He has hx of TA in the past. Diarrhea has worsened as he has less warning. He is not doing well on imodium, so we will move him along to a trial of Carafate. Will get GI panel, fecal calprotectin, CRP, pancreatic elastase. FOr now starting carafate and titrating to affect her side effect. Sent another not for schedulers to try to get his procedures booked. ROV 3 weeks. (2) Tubular adenoma of colon: Code(s): D12.6 - Benign neoplasm of colon, unspecified Orders: Orders C Reactive Protein 06/10/23 R19.7 - Diarrhea, unspecified GI Panel 06/10/23 R19.7 - Diarrhea, unspecified Calprotectin, Feca l 06/10/23 R19.7 - Diarrhea, unspecified Medications: New sucralfate (Carafa te) 2 grams (2 x 1 gra m) PO QNOON 60 tab s 3RF R19.7 - Diarrhea, unspecified Discontinued diphenoxylate-atro pine 2.5-0.025 mg Discontinued Re ason: Doctor's Or rell 1 tab PO TID PRN 20 tabs 0RF diarrh ea LABS: Laboratory Tests 07/02/23 07/12/23 07/12/23 11:56 17:00 Unknown C-Reactive Protein 0.32 Stool Leukocytes, Qual NEGATIVE Stool Calprotectin 31 Stool Pancreat Margo stase >500 07/13/23-[address]: Eric patrick,Federico Daniels MD ORDERED: GI Panel Test Result Flag Refere nce Si te Campylobacter No t Detected Not Det ect. P. shigelloides Not Detected Not Detec t. S almonella Not De tected Not Detect. Vib briana Not Dete cted Not Detect. Vibri o Cholerae Not Detect ed Not Detect. Y. ente rocolit. Not Detected Not Detect. E. coli E AEC Not Detected N ot Detect. E. coli EPE C Not Detected Not Detect. E. coli ETEC Not Detected Not D etect. E. coli STEC No t Detected Not Det ect. E. coli O157 Not a pplicable Not Detec t. E. coli contai jace the O157 anti gen are a subset o f Shiga-lik e toxin-producing E. coli (STEC). Shigella/EIEC Not D etected Not Detect . Cr yptosporidium Not Det ected Not Detect. Cycl ospora Not Detec lauren Not Detect. E. his tolytica Not Detecte d Not Detect. Giardia lamblia Not Detected Not Detect. Adenovirus Not Detected No t Detect. Astrovirus Not Detected Not Detect. Norovirus N ot Detected Not De tect. Rotavirus A Not Detected Not Dete ct. Sapovirus Not D etected Not Detect . COLONOSCOPY 07/23/23 Findings: Terminal Ileum-normal, random bx taken random colon bx taken Cecum:normal Ascending Colon: normal Transverse Colon -normal Descending Colon:normal Sigmoid Colon: mild diverticulosis, x2 polyps noted 12-16 mm in size, one was sessile and the other pedunculated, both removed with cold snare and one clip applied over one area for hemostasis Rectum: Retroflexion with small internal hemorrhoids, grade I with skin tags Anorectum - normal Impression and Post Procedure Diagnosis: polyps internal hemorrhoids diverticular disease Plan: High fiber diet leaflet Avoid straining at stool, epsom salts and sitz bath, anusol supps or cream Repeat Colonoscopy in 1-2 years due to polyps or earlier if clinically indicated if diarrhea persists then consider EGD to r/o enteropathy or gastropathy BIOPSY Received: 07/23/23 Diagnosis A. Terminal ileum, biopsy: Ileal mucosa with no specific change. B. Colon, random, biopsy colonic mucosa with no specific change. C. Colon, sigmoid, polyps: Tubular adenomas (multiple with 2 that appear excised) and tubulovillous adenomas (multiple, cannot evaluate margins); negative for high-grade dysplasia and carcinoma TODAY'S VISIT. The procedure needs to be repeated in 1 year due to the tubulovillous adenomas. The procedure was well tolerated. The results were explained and the patient is agreeable to the follow-up interval as stated. He continues to have diarrhea.. Education was provided to tell any 1st degree relatives about their findings to be sure that they are screened by age 45. Educated that they will be put on a recall list when it is time for their repeat scope but should they move out of state or away from the hospital they will need to remember along with their primary to repeat the procedure in a timely fashion to avoid any adverse complications. The we review all the labs and since he has no infection, no indication for inflammatory bowel disease, microscopic colitis, and no indication for exocrine pancreatic insufficiency I believe this is simply IBS-D. Given that he has failed Carafate, cholestyramine, fiber in [id number] Imodium we will start him on trial of Viberzi and titrate.. Return office visit in 3 weeks. [facility] Medical History (Updated 08/28/23 @ 09:25 by LARRY Anaya) Hyperlipidemia CAD (coronary artery disease) Hypertension Surgical History Hx of cardiac catheterization Hx of colonoscopy History of esophagogastroduodenoscopy (EGD) History of surgery H/O rectal polypectomy Family History Father No problems noted. Mother Heart disease Brother CAD (coronary artery disease) Paternal Uncle Myocardial infarction Social History Housing: House Alcohol intake: current Alcohol intake frequency: a few times a week Alcohol type: hard liquor Patient Tobacco Use Status: Former Tobacco user e-Cigarette/Vaping Use: Never Used Second Hand Smoke Exposure: No service: No Current occupational status: retired Cognitive needs: No Hearing needs: No Vision needs: No Review of Systems Const Denies fatigue, Denies fever(s), Denies night sweats, Denies poor appetite and Denies weight loss ENT Reports Normal hearing present, Denies dental pain, Denies dysphagia, Denies hearing loss, Denies mouth pain, Denies odynophagia, Denies throat swelling, Denies tongue swelling and Reports other (Dentition adequate) Card Reports no additional complaints Resp Reports no additional complaints GI Denies abdominal pain, Denies melena, Denies bloating, Denies hematochezia, Denies constipation, Reports GI cramping, Denies dysphagia, Denies excessive flatus, Denies early satiety, Denies heartburn, Reports diarrhea, Denies nausea, Denies odynophagia, Denies vomiting and Denies hematemesis Skin/Breast Denies pruritus, Denies lesions, Denies rash and Denies jaundice Neuro Reports Normal hearing present and Denies Abnormal speech present Endo Denies fatigue Aller/Immun Denies throat swelling and Denies tongue swelling Physical Exam Vital Signs: Last Vital Signs Pulse 69 07/31/23 08:36 BP 152/84 H 07/31/23 08:36 BMI result Body Mass Index 29.2 Const General: cooperative, no acute distress, well developed and well groomed Nutritional Appearance: average body habitus and well nourished Orientation/consciousness: oriented to person, oriented to place and oriented to time Limitations: No language barrier HEENT Head: Yes normocephalic and Yes atraumatic Eyes General: appearance normal, both eyes and all related structures Pupils: Equal, round and reactive pupils present Neck Neck: Yes normal visual inspection and Yes no lymphadenopathy Thyroid: Thyroid normal Resp Effort & Inspection: normal respiratory effort and able to speak in complete sentences Auscultation: clear to auscultation bilaterally Cardio Rate: regular rate Rhythm: regular rhythm Heart sounds: Normal, physiologic split S2 sound present Peripheral pulses: radial pulses present and posterior tibial pulses present GI Inspection: No distended and No Abdominal panniculus present Palpation (GI): Soft to palpation, nontender, no guarding, not rigid and No hepatosplenomegaly present Percussion: Yes normal to percussion Auscultation: normal bowel sounds Rectal Exam - Male: Yes deferred Skin General skin exam: no rashes or lesions noted, turgor normal, skin not dry, no jaundice, No spider nevi and no striae Rashes: no rashes Nails: normal Neuro General: oriented to person, oriented to place and oriented to time Cranial nerves: Yes Equal, round and reactive pupils present and Yes Normal hearing present Speech: No Abnormal speech present Extrem General: Yes normal to inspection, No clubbing, No cyanosis and No edema Psych Appearance: grossly normal and well kempt Mental Status: mental status grossly normal Speech and movement: Normal speech and movement present Affect: normal affect Attitude: cooperative Thought process: Normal thought process present and not confabulating Thought content: Normal thought content present Insight: Limited insight present (Psych) Judgement: Limited judgement present (Psych) Results Reviewed Results Reviewed: Laboratory Tests 07/02/23 07/12/23 07/12/23 11:56 17:00 Unknown C-Reactive Protein 0.32 Stool Leukocytes, Qual NEGATIVE Stool Calprotectin 31 Stool Pancreat Elastase >500 07/13/23-48[address] [facility] DR: Federico Falcon MD ORDERED: GI Panel Test Result Flag Reference Site Campylobacter Not Detected Not Detect. P. shigelloides Not Detected Not Detect. Salmonella Not Detected Not Detect. Vibrio Not Detected Not Detect. Vibrio Cholerae Not Detected Not Detect. Y. enterocolit. Not Detected Not Detect. E. coli EAEC Not Detected Not Detect. E. coli EPEC Not Detected Not Detect. E. coli ETEC Not Detected Not Detect. E. coli STEC Not Detected Not Detect. E. coli O157 Not applicable Not Detect. E. coli containing the O157 antigen are a subset of Shiga-like toxin-producing E. coli (STEC). Shigella/EIEC Not Detected Not Detect. Cryptosporidium Not Detected Not Detect. Cyclospora Not Detected Not Detect. E. histolytica Not Detected Not Detect. Giardia lamblia Not Detected Not Detect. Adenovirus Not Detected Not Detect. Astrovirus Not Detected Not Detect. Norovirus Not Detected Not Detect. Rotavirus A Not Detected Not Detect. Sapovirus Not Detected Not Detect. COLONOSCOPY 07/23/23 Findings: Terminal Ileum-normal, random bx taken random colon bx taken Cecum:normal Ascending Colon: normal Transverse Colon -normal Descending Colon:normal Sigmoid Colon: mild diverticulosis, x2 polyps noted 12-16 mm in size, one was sessile and the other pedunculated, both removed with cold snare and one clip applied over one area for hemostasis Rectum: Retroflexion with small internal hemorrhoids, grade I with skin tags Anorectum - normal Impression and Post Procedure Diagnosis: polyps internal hemorrhoids diverticular disease Plan: High fiber diet leaflet Avoid straining at stool, epsom salts and sitz bath, anusol supps or cream Repeat Colonoscopy in 1-2 years due to polyps or earlier if clinically indicated if diarrhea persists then consider EGD to r/o enteropathy or gastropathy BIOPSY Received: 07/23/23 Diagnosis A. Terminal ileum, biopsy: Ileal mucosa with no specific change. B. Colon, random, biopsy colonic mucosa with no specific change. C. Colon, sigmoid, polyps: Tubular adenomas (multiple with 2 that appear excised) and tubulovillous adenomas (multiple, cannot evaluate margins); negative for high-grade dysplasia and carcinoma Assessment & Plan Assessment & Plan (1) Tubulovillous adenoma of colon: Comment: 07/2023 scope repeat in 1 year Code(s): D12.6 - Benign neoplasm of colon, unspecified Plan: The procedure needs to be repeated in 1 year due to the tubulovillous adenomas. The procedure was well tolerated. The results were explained and the patient is agreeable to the follow-up interval as stated. He continues to have diarrhea.. Education was provided to tell any 1st degree relatives about their findings to be sure that they are screened by age 45. Educated that they will be put on a recall list when it is time for their repeat scope but should they move out of state or away from the hospital they will need to remember along with their primary to repeat the procedure in a timely fashion to avoid any adverse complications. The this was a long appointment because there was a new lot information to go over and a lot of patient Education needed. The we review all the labs and since he has no infection, no indication for inflammatory bowel disease, microscopic colitis, and no indication for exocrine pancreatic insufficiency I believe this is simply IBS-D. Given that he has failed Carafate, cholestyramine, fiber in [id number] Imodium we will start him on trial of Viberzi and titrate.. Return office visit in 3 weeks. (2) Irritable bowel syndrome with diarrhea: Code(s): K58.0 - Irritable bowel syndrome with diarrhea (3) Tubular adenoma of colon: Comment: TVA 07/2023 scope repeat in 1 year Code(s): D12.6 - Benign neoplasm of colon, unspecified Medications: New eluxadoline (Viberzi) must administer with a meal/food 75 mg PO BID 60 tabs 3RF K58.0 - Irritable bowel syndrome with diarrhea Coding Level of Care Code Est Pt Level 4 (82512) Diagnoses Tubulovillous adenoma of colon D12.6 Irritable bowel syndrome with diarrhea K58.0 Tubular adenoma of colon D12.6 Time Spent (min) 38 Comment THIRTY-THREE [id number] 5 CHART
[2023-07-31 08:36] VITALS: BP 152/84; PULSE 69; BMI 29.2
== END 2023-07-31 09:00 | disposition home or self-care (01) ==
PROVIDERS: PCP Internal Medicine; Visit Provider Nurse Practitioner
DX: D12.6 Benign neoplasm of colon, unspecified (principal); K58.0 Irritable bowel syndrome with diarrhea
CPT/HCPCS: 99214

== ENCOUNTER → 2023-07-31 08:11 | Outpatient (BNVA) | payer MEDICARE, SELFPAY | PROVIDERS: PCP Internal Medicine; Visit Provider Nurse Practitioner | DX: D12.6 Benign neoplasm of colon, unspecified (principal); K58.0 Irritable bowel syndrome with diarrhea | CPT/HCPCS: 99212 ==

== ENCOUNTER 2023-08-24 08:15 | Outpatient (AMB) | payer MEDICARE, SELFPAY ==
--- NOTE | 2023-08-24 08:29 | MHC.PC.OV ---
Vital Signs 08/24/23 08:30 Height 6 ft 1 in Weight 223 lb 8 oz BMI 29.5 BP 132/74 Blood Pressure Location Lt brachial Position Sitting Pulse 74 Pulse Source Pulse Oximeter Pulse Oximetry (%) 94 Oxygen Delivery Method Room Air Intake Visit Reasons: 6mth f/u from Gastro Intake Note: Patient is here to follow up on IBS. 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 Chaser Tar: Not Required per policy Accompanied by: Self / Same As Patient Allergies meperidine [Demerol] Allergy (Unknown, Verified 08/24/23 08:30) Unknown nitroglycerin [NITROGLYCERIN] Allergy (Unknown, Verified 08/24/23 08:30) HYPOTENSION, no reactions were documented Medication List - Last Reconciled 08/24/23 by Federico Falcon MD amlodipine 10 mg (2 x 5 mg) PO DAILY carvedilol 12.5 mg PO BID eluxadoline (Viberzi) 75 mg PO BID hydrochlorothiazide 25 mg PO DAILY hydroxyzine HCl 25 mg PO BID loperamide (Imodium A-D) 2 mg PO Q6H PRN pramipexole 0.5 mg PO BID sucralfate (Carafate) 2 grams (2 x 1 gram) PO QNOON trazodone 25 mg PO BEDTIME Tobacco use date assessed: 08/24/23 Fall risk assessment: No Falls in past year Last assessed Fall Risk: 08/24/23 Dental Screening Dental Screen Date: 08/24/23 Did you have a dental visit in the last 12 months?: No Did you have a dental problem in the last 6 months where you did not have access to dental care?: No Was dental information given to patient?: Patient has dentist HPI 6mth f/u from Gastro HPI Details HTN on Rx; doing well PFSH Medical History (Updated 07/31/23 @ 08:56 by LARRY Anaya) Hyperlipidemia CAD (coronary artery disease) Hypertension Surgical History Hx of cardiac catheterization Hx of colonoscopy History of esophagogastroduodenoscopy (EGD) History of surgery H/O rectal polypectomy Family History Father No problems noted. Mother Heart disease Brother CAD (coronary artery disease) Paternal Uncle Myocardial infarction Social History Housing: House Alcohol intake: current Alcohol intake frequency: a few times a week Alcohol type: hard liquor Patient Tobacco Use Status: Former Tobacco user e-Cigarette/Vaping Use: Never Used Second Hand Smoke Exposure: No service: No Current occupational status: retired Cognitive needs: No Hearing needs: No Vision needs: No Questionnaire Thrive Questionnaire Date Thrive assessed: 01/13/23 MRAY-7 AMB Questionnaire MARY-7 Date MARY - 7 assessed: 01/13/23 Source: Developed by Drs. Mateo Crockett, Yessi Ramos, Pineda Crowe and colleagues, with an educational [place] from [employer]. Review of Systems Const Denies chills, Denies headache(s) and Denies weight loss ENT Denies headache(s) Card Denies chest pain, Denies syncope, Denies irregular heart rhythm and Denies dyspnea Resp Denies chest congestion, Denies cough and Denies dyspnea GI Denies abdominal pain, Denies change in stool character, Denies nausea and Denies vomiting Musc Denies deformity and Denies joint swelling Neuro Denies syncope and Denies headache(s) Physical exam (Primary Care) Vital Signs: Last Vital Signs Pulse 74 08/24/23 08:30 BP 132/74 08/24/23 08:30 Pulse Ox 94 08/24/23 08:30 Oxygen Delivery Method Room Air 08/24/23 08:30 BMI result Body Mass Index 29.5 Tobacco/Smoking Status: Tobacco use Status Tobacco use date assessed 08/24/23 08/24/23 08:34 Patient Tobacco Use Status Former Tobacco user 08/24/23 08:34 e-Cigarette/Vaping Use Never Used 08/24/23 08:34 Thrive Assessment: Date of Thrive Assessment Date Thrive assessed 01/13/23 08/24/23 08:34 Const General: cooperative, comfortable, no acute distress and alert Neck Neck: Yes no lymphadenopathy Thyroid: Thyroid normal Resp Effort & Inspection: normal respiratory effort Auscultation: clear to auscultation bilaterally Percussion: percussion normal Cardio Jugular venous distension: no JVD Palpation: normal PMI Rate: regular rate Rhythm: regular rhythm Heart sounds: S1 normal heart sound present and S2 normal heart sound present GI Inspection: Yes normal to inspection Palpation (GI): No hepatosplenomegaly present Skin General skin exam: no rashes or lesions noted Extrem General: Yes no clubbing, cyanosis or edema Assessment and Plan Assessment & Plan (1) Hypertension: Code(s): I10 - Essential (primary) hypertension Plan: stable; same rx Orders: Orders Influenza [id number] Immunization Today Z23 - Encounter for immunization Medications: New flu vacc [id number] 6mos up(PF) 0.5 mL IM ONCE 0.5 mL 0RF Z23 - Encounter for immunization Coding Level of Care Code Est Pt Level 3 (70925) Diagnoses Hypertension I10
[2023-08-24 08:30] VITALS: BP 132/74; PULSE 74; O2SAT 94; BMI 29.5
== END 2023-08-24 09:08 | disposition home or self-care (01) ==
PROVIDERS: PCP Internal Medicine; Visit Provider Internal Medicine
DX: I10 Essential (primary) hypertension (principal); Z23 Encounter for immunization
CPT/HCPCS: 90471; 90686; 99213

== ENCOUNTER 2023-09-22 08:14 | Outpatient (AMB) | payer MEDICARE, SELFPAY ==
--- NOTE | 2023-09-22 08:19 | MHC.OFFVIS ---
Intake Vital Signs 09/22/23 08:22 Height 6 ft Weight 224 lb 13.944 oz BMI 30.5 BP 199/96 H Blood Pressure Location Lt brachial Position Sitting Pulse 75 Intake Visit Reasons: 3 week follow up IBS Intake Note: Erik presents in the office as a 3 week follow up. CC: HE states that he states imodium and sucralfate do not work for him very well. He states that the other medication that insurance would not approve but he is still having the issues with diarrhea. The imodium works the best but he is still suffering from the diarrhea. Patient Case Manager Required: No Allergies meperidine [Demerol] Allergy (Unknown, Verified 09/22/23 08:23) Unknown nitroglycerin [NITROGLYCERIN] Allergy (Unknown, Verified 09/22/23 08:23) HYPOTENSION, no reactions were documented HPI 3 week follow up IBS HPI Details Assessment & Plan (1) Tubulovillous adenoma of colon: Comment: 07/2023 scope repeat in 1 year Code(s): D12.6 - Benign neoplasm of colon, unspecified Plan: The procedure needs to be repeated in 1 year due to the tubulovillous adenomas. The procedure was well tolerated. The results were explained and the patient is agreeable to the follow-up interval as stated. He continues to have diarrhea.. Education was provided to tell any 1st degree relatives about their findings to be sure that they are screened by age 45. Educated that they will be put on a recall list when it is time for their repeat scope but should they move out of state or away from the hospital they will need to remember along with their primary to repeat the procedure in a timely fashion to avoid any adverse complications. The this was a long appointment because there was a new lot information to go over and a lot of patient Education needed. The we review all the labs and since he has no infection, no indication for inflammatory bowel disease, microscopic colitis, and no indication for exocrine pancreatic insufficiency I believe this is simply IBS-D. Given that he has failed Carafate, cholestyramine, fiber in [id number] Imodium we will start him on trial of Viberzi and titrate.. Return office visit in 3 weeks. (2) Irritable bowel syndrome with diarrhea: Code(s): K58.0 - Irritable bowel syndrome with diarrhea (3) Tubular adenoma of colon: Comment: TVA 07/2023 scope repeat in 1 year Code(s): D12.6 - Benign neoplasm of colon, unspecified Medications: New eluxadoline (Viber zi) must admini ster with a meal/f ood 75 mg PO BID 60 ta bs 3RF K58.0 - Irritable bowel syndrome wit h diarrhea TODAY'S VISIT He never received the Viberiz and is using loperimde for now. Least told over he is taking about 4 a day. He also has quite a bit of gas and bloating so while were trying to figure out what is going on with the Viberzi I think a trial of Creon would be reasonable. He if he could possibly have Crohn's disease and I explained to him that we already screen for this and with a negative CRP and in non elevated fecal calprotectin this is extremely unlikely. We also discussed the difference between food allergies and food intolerance (he had a negative RAST panel) and the fact that the inability to digest food sometimes can cause gas and drive the diarrheal responses. This could be another good indication for Creon. He is going to be going away to the [facility] for [place]! In the meantime he feels like he can hold his own with the loperamide for now. Return office visit in 8 weeks [facility] Medical History Hyperlipidemia CAD (coronary artery disease) Hypertension Surgical History Hx of cardiac catheterization Hx of colonoscopy History of esophagogastroduodenoscopy (EGD) History of surgery H/O rectal polypectomy Family History Father No problems noted. Mother Heart disease Brother CAD (coronary artery disease) Paternal Uncle Myocardial infarction Social History Housing: House Alcohol intake: current Alcohol intake frequency: a few times a week Alcohol type: hard liquor Patient Tobacco Use Status: Former Tobacco user e-Cigarette/Vaping Use: Never Used Second Hand Smoke Exposure: No service: No Current occupational status: retired Cognitive needs: No Hearing needs: No Vision needs: No Review of Systems Const Denies fatigue, Denies fever(s), Denies night sweats, Denies poor appetite and Denies weight loss ENT Reports Normal hearing present, Denies dental pain, Denies dysphagia, Denies hearing loss, Denies mouth pain, Denies odynophagia, Denies throat swelling, Denies tongue swelling and Reports other (Dentition adequate) Card Reports no additional complaints Resp Reports no additional complaints GI Denies abdominal pain, Denies melena, Reports bloating, Denies hematochezia, Denies constipation, Denies GI cramping, Denies dysphagia, Reports excessive flatus, Denies early satiety, Denies heartburn, Reports diarrhea, Denies nausea, Denies odynophagia, Denies vomiting and Denies hematemesis Skin/Breast Denies pruritus, Denies lesions, Denies rash and Denies jaundice Neuro Reports Normal hearing present and Denies Abnormal speech present Endo Denies fatigue Aller/Immun Denies throat swelling and Denies tongue swelling Physical Exam Vital Signs: Last Vital Signs Pulse 75 09/22/23 08:22 BP 199/96 H 09/22/23 08:22 BMI result Body Mass Index 30.5 Const General: cooperative, no acute distress, well developed and well groomed Nutritional Appearance: well nourished and obese Orientation/consciousness: oriented to person, oriented to place and oriented to time Limitations: No language barrier HEENT Head: Yes normocephalic and Yes atraumatic Eyes General: appearance normal, both eyes and all related structures Pupils: Equal, round and reactive pupils present Neck Neck: Yes normal visual inspection and Yes no lymphadenopathy Thyroid: Thyroid normal Resp Effort & Inspection: normal respiratory effort and able to speak in complete sentences Auscultation: clear to auscultation bilaterally Cardio Rate: regular rate Rhythm: regular rhythm Heart sounds: Normal, physiologic split S2 sound present Peripheral pulses: radial pulses present and posterior tibial pulses present GI Inspection: No distended, No Abdominal panniculus present and Yes obesity Palpation (GI): Soft to palpation, nontender, no guarding, not rigid and No hepatosplenomegaly present Percussion: Yes normal to percussion Auscultation: normal bowel sounds Rectal Exam - Male: Yes deferred Skin General skin exam: no rashes or lesions noted, turgor normal, skin not dry, no jaundice, No spider nevi and no striae Rashes: no rashes Nails: normal Neuro General: oriented to person, oriented to place and oriented to time Cranial nerves: Yes Equal, round and reactive pupils present and Yes Normal hearing present Speech: No Abnormal speech present Extrem General: Yes normal to inspection, No clubbing, No cyanosis and No edema Psych Appearance: grossly normal and well kempt Mental Status: mental status grossly normal Speech and movement: Normal speech and movement present Affect: normal affect Attitude: cooperative Thought process: Normal thought process present and not confabulating Thought content: Normal thought content present Insight: Fair insight present (Psych) Judgement: Fair judgement present (Psych) Assessment & Plan Assessment & Plan (1) Irritable bowel syndrome with diarrhea: Code(s): K58.0 - Irritable bowel syndrome with diarrhea (2) Tubulovillous adenoma of colon: Comment: 07/2023 scope repeat in 1 year Code(s): D12.6 - Benign neoplasm of colon, unspecified Plan He never received the Viberiz and is using loperimde for now. Least told over he is taking about 4 a day. He also has quite a bit of gas and bloating so while were trying to figure out what is going on with the Viberzi I think a trial of Creon would be reasonable. He if he could possibly have Crohn's disease and I explained to him that we already screen for this and with a negative CRP and in non elevated fecal calprotectin this is extremely unlikely. We also discussed the difference between food allergies and food intolerance (he had a negative RAST panel) and the fact that the inability to digest food sometimes can cause gas and drive the diarrheal responses. This could be another good indication for Creon. He is going to be going away to the [facility] for [place]! In the meantime he feels like he can hold his own with the loperamide for now. Return office visit in 8 weeks Medications: New ostrid-ttsxgokz-kaxueph 36,000-114,000- 180,000 unit (Creon) administer with meals and/or snacks 2 caps PO BID 120 caps 6RF K58.0 - Irritable bowel syndrome with diarrhea Coding Level of Care Code Est Pt Level 3 (19612) Diagnoses Irritable bowel syndrome with diarrhea K58.0 Tubulovillous adenoma of colon D12.6
[2023-09-22 08:22] VITALS: BP 199/96; PULSE 75; BMI 30.5
== END 2023-09-22 08:57 | disposition home or self-care (01) ==
PROVIDERS: PCP Internal Medicine; Visit Provider Nurse Practitioner
DX: K58.0 Irritable bowel syndrome with diarrhea (principal); D12.6 Benign neoplasm of colon, unspecified
CPT/HCPCS: 99213

== ENCOUNTER → 2023-09-22 08:14 | Outpatient (BNVA) | payer MEDICARE, SELFPAY | PROVIDERS: PCP Internal Medicine; Visit Provider Nurse Practitioner | DX: K58.0 Irritable bowel syndrome with diarrhea (principal); D12.6 Benign neoplasm of colon, unspecified | CPT/HCPCS: 99212 ==

== ENCOUNTER 2023-10-29 09:10 | Outpatient (AMB) | payer MEDICARE, SELFPAY ==
[2023-10-29 09:13] VITALS: BP 158/90; PULSE 81; BMI 30.2
--- NOTE | 2023-10-29 09:13 | A.OFFVIS_ITS ---
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: No Allergies meperidine [Demerol] Allergy (Unknown, Verified 09/22/23 08:23) Unknown nitroglycerin [NITROGLYCERIN] Allergy (Unknown, Verified 09/22/23 08:23) HYPOTENSION, no reactions were documented Medication List - Last Reconciled 10/29/23 by Rene Diaz MD amlodipine 10 mg (2 x 5 mg) PO DAILY carvedilol 12.5 mg PO BID eluxadoline (Viberzi) 75 mg PO BID hydrochlorothiazide 25 mg PO DAILY hydroxyzine HCl 25 mg PO BID ehwryo-sgizgtro-bhmamwa 36,000-114,000- 180,000 unit (Creon) 2 caps PO BID loperamide (Imodium A-D) 2 mg PO Q6H PRN pramipexole 0.5 mg PO BID HPI HPI Comments History of Present Illness Details Erik comes for follow-up. He denies any cardiac issues. Doing well. Denies any exertional chest pain. Denies any shortness of breath, orthopnea, PND. Taking all his medications. His current issues mostly are related to the back and the GI tract. Denies any prolonged palpitations, fast heart rate, lightheadedness, syncope. PFSH Medical History Hyperlipidemia CAD (coronary artery disease) Hypertension Surgical History Hx of cardiac catheterization Hx of colonoscopy History of esophagogastroduodenoscopy (EGD) History of surgery H/O rectal polypectomy Family History Father No problems noted. Mother Heart disease Brother CAD (coronary artery disease) Paternal Uncle Myocardial infarction Social History Housing: House Alcohol intake: current Alcohol intake frequency: a few times a week Alcohol type: hard liquor Patient Tobacco Use Status: Former Tobacco user e-Cigarette/Vaping Use: Never Used Second Hand Smoke Exposure: No service: No Current occupational status: retired Cognitive needs: No Hearing needs: No Vision needs: No Review of Systems Const Denies chills, Denies fatigue, Denies fever(s), Denies frequent falls, Denies weakness, Denies weight gain and Denies weight loss ENT Denies dizziness Card Denies chest pain, Denies leg edema, Denies lightheadedness, Denies palpitations, Denies dyspnea, Denies dyspnea on exertion, Denies orthopnea and Denies other (loss of consciousness) Resp Denies cough, Denies dyspnea and Denies dyspnea on exertion GI Denies hematochezia and Denies change in stool character Musc Denies abnormal gait, Denies muscle weakness, Denies numbness, Denies radiating pain into limb and Denies tingling Neuro Denies abnormal gait, Denies dizziness, Denies frequent falls, Denies numbness, Denies tingling and Denies weakness Endo Denies fatigue and Denies palpitations Physical Exam Vital Signs: Last Vital Signs Pulse 81 10/29/23 09:13 BP 158/90 H 10/29/23 09:13 BMI result Body Mass Index 30.2 Const General: cooperative, comfortable, no acute distress, alert and awake Nutritional Appearance: overweight Orientation/consciousness: patient oriented x3 Neck Neck: Yes trachea midline, Yes supple and Yes no JVD Resp Effort & Inspection: normal respiratory effort Auscultation: clear to auscultation bilaterally Cardio Jugular venous distension: no JVD Palpation: normal PMI Rate: regular rate Rhythm: regular rhythm Heart sounds: S1 normal heart sound present, S2 normal heart sound present, no click, no gallops, no murmurs, no rubs and Other heart sounds present ( Soft S4 present) Skin General skin exam: no rashes or lesions noted Neuro General: patient oriented x3 and no focal motor deficits Extrem General: No clubbing, No cyanosis and Yes edema ( mild) Office Procedures EKG Details: EKG shows normal sinus rhythm with PVCs with suggestion of left ventricular hypertrophy with left axis deviation [id number], Complete Assessment & Plan Assessment & Plan (1) CAD (coronary artery disease): Comment: Nonobstructive by cardiac catheterization Code(s): I25.10 - Atherosclerotic heart disease of [place] coronary artery without angina pectoris Plan: CAD nonobstructive with no recurrent symptoms. He has no concerning symptoms no further workup is indicated. Continue aggressive risk factor modification. Continue low-dose aspirin therapy. Continue aggressive blood pressure management, see below. Continue to manage lipids with goal LDL less than 70 mg/dL. He is advised to call me with any new symptoms. He is encouraged to participate in more physical activity as much as possible. (2) Hypertension: Code(s): I10 - Essential (primary) hypertension Plan: Hypertension with mild hypertensive heart disease without any signs or symptoms of heart failure. Continue aggressive control blood pressure. Importance of good blood pressure control was discussed. Target goal blood pressure less than 130/84. Advised to monitor blood pressure at home maintain a log. Low-salt diet was discussed. Increase heart healthy lifestyle. Will follow up in the clinic in 1 year's time after an echocardiogram. Thank you for allowing me to partake in his care Medications: Changed From eluxadoline (Viberzi) must administer with a meal/food 75 mg PO BID 60 tabs 3RF K58.0 - Irritable bowel syndrome with diarrhea To eluxadoline (Viberzi) must administer with a meal/food 75 mg PO BID K58.0 - Irritable bowel syndrome with diarrhea Coding Level of Care Code Est Pt Level 4 (81616) Diagnoses CAD (coronary artery disease) I25.10 Hypertension I10 CPT Codes EKG - CPT: 39050-[id number], Complete ([id number])
== END 2023-10-29 09:39 | disposition home or self-care (01) ==
PROVIDERS: Visit Provider Internal Medicine Cardiovascular Disease
DX: I25.10 Atherosclerotic heart disease of native coronary artery without angina pectoris (principal); I10 Essential (primary) hypertension
CPT/HCPCS: 93010; 99214

== ENCOUNTER → 2023-10-29 09:10 | Outpatient (BNVA) | payer MEDICARE, SELFPAY | PROVIDERS: Visit Provider Internal Medicine Cardiovascular Disease | DX: I25.10 Atherosclerotic heart disease of native coronary artery without angina pectoris (principal); I10 Essential (primary) hypertension | CPT/HCPCS: 93005; 99212 ==

== ENCOUNTER 2023-11-17 08:18 | Outpatient (AMB) | payer MEDICARE, SELFPAY ==
--- NOTE | 2023-11-17 08:32 | MHC.OFFVIS ---
Intake Vital Signs 11/17/23 08:36 Height 6 ft Weight 227 lb 1.218 oz BMI 30.8 BP 160/81 H Blood Pressure Location Rt brachial Position Sitting Pulse 73 Intake Visit Reasons: 8 weeks follow up Intake Note: Erik presents in the office as today in 8 weeks follow up of IBS. CC: Patient reports that he continues to have diarrhea every day. He continues taking Imodium BID, per patient this seems to help a little bit with diarrhea. Denies other GI symptoms. Weight And Balance Control Agent Required: No Accompanied by: Self / Same As Patient Allergies meperidine [Demerol] Allergy (Unknown, Verified 11/17/23 08:43) Unknown nitroglycerin [NITROGLYCERIN] Allergy (Unknown, Verified 11/17/23 08:43) HYPOTENSION, no reactions were documented HPI 8 weeks follow up HPI Details Assessment & Plan (1) Irritable bowel syndrome with diarrhea: Code(s): K58.0 - Irritable bowel syndrome with diarrhea (2) Tubulovillous adenoma of colon: Comment: 07/2023 scope repeat in 1 year Code(s): D12.6 - Benign neoplasm of colon, unspecified Plan He never received the Viberiz and is using loperimde for now. Least told over he is taking about 4 a day. He also has quite a bit of gas and bloating so while were trying to figure out what is going on with the Viberzi I think a trial of Creon would be reasonable. He if he could possibly have Crohn's disease and I explained to him that we already screen for this and with a negative CRP and in non elevated fecal calprotectin this is extremely unlikely. We also discussed the difference between food allergies and food intolerance (he had a negative RAST panel) and the fact that the inability to digest food sometimes can cause gas and drive the diarrheal responses. This could be another good indication for Creon. He is going to be going away to the [facility] for [place]! In the meantime he feels like he can hold his own with the loperamide for now. Return office visit in 8 weeks Medications: New kqfxlj-kajexnuq-aa ylase 36,000-114,0 00- 180,000 unit ( Creon) administ er with meals and/ or snacks 2 caps PO BID 120 caps 6RF K58.0 - Irritable bowel syndrome wit h diarrhea TODAY'S VISIT He had a good trip to the [facility] over the holidays with his family. He did tell me an interesting story about traveling on an older airplane in [place] how this was a bit scary. He has been using the loperamide 2 tablets twice a day scheduled but still will have breakthrough diarrhea sometimes in the middle of the day and sometimes overnight with explosive watery movements. While he was on vacation he used more up to 6 mg a day and I educate him that he can go safely up to 8 mg a day. He buys this [id number]. Again, we have not been able to get Viberzi or Lotronex approved for him there was insurance and it was 600 dollar co-pay. Again we have a long discussion about what could be causing this. We have ruled out most major, life-threatening reasons for diarrhea so this likely is functional. One possible reason could be an overactive immune system after he had an intestinal infection. It is difficult to say how long this can go on for depending on the person and what their system is reacting to. Again he has had a negative RAST panel for food allergies, an unremarkable colonoscopy with biopsies, negative CRP and fecal calprotectin for IBD, and he has done a lot of experimenting to try to find foods that drive his symptoms without a lot of luck. He has mostly a meat and potatoes kind of yamileth. The only other thing I can think of since the Creon also was not effective (thinking exocrine pancreatic insufficiency) is that it could be small-bowel bacterial overgrowth with gas and bloating driving the diarrhea. With this in mind will try to get a course of Xifaxan. 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 Return office visit in 3 weeks. [facility] Medical History (Updated 11/17/23 @ 08:33 by LARRY Anaya) Pre-op examination Hyperlipidemia CAD (coronary artery disease) Hypertension Surgical History Hx of cardiac catheterization Hx of colonoscopy History of esophagogastroduodenoscopy (EGD) History of surgery H/O rectal polypectomy Family History Father No problems noted. Mother Heart disease Brother CAD (coronary artery disease) Paternal Uncle Myocardial infarction Social History Housing: House Alcohol intake: current Alcohol intake frequency: a few times a week Alcohol type: hard liquor Patient Tobacco Use Status: Former Tobacco user e-Cigarette/Vaping Use: Never Used Second Hand Smoke Exposure: No service: No Current occupational status: retired Cognitive needs: No Hearing needs: No Vision needs: No Review of Systems Const Denies fatigue, Denies fever(s), Denies night sweats, Denies poor appetite and Denies weight loss ENT Reports Normal hearing present, Denies dental pain, Denies dysphagia, Denies hearing loss, Denies mouth pain, Denies odynophagia, Denies throat swelling, Denies tongue swelling and Reports other (Dentition adequate) Card Reports no additional complaints Resp Reports no additional complaints GI Details: Denies abdominal pain, Denies melena, Reports bloating, Denies hematochezia, Denies constipation, Denies GI cramping, Denies dysphagia, Reports excessive flatus, Denies early satiety, Denies heartburn, Reports diarrhea, Denies nausea, Denies odynophagia, Denies vomiting and Denies hematemesis Skin/Breast Denies pruritus, Denies lesions, Denies rash and Denies jaundice Neuro Reports Normal hearing present and Denies Abnormal speech present Endo Denies fatigue Aller/Immun Denies throat swelling and Denies tongue swelling Physical Exam Vital Signs: Last Vital Signs Pulse 73 11/17/23 08:36 BP 160/81 H 11/17/23 08:36 BMI result Body Mass Index 30.8 Const General: cooperative, no acute distress, well developed and well groomed Nutritional Appearance: well nourished and obese Orientation/consciousness: oriented to person, oriented to place and oriented to time Limitations: No language barrier HEENT Head: Yes normocephalic and Yes atraumatic Eyes General: appearance normal, both eyes and all related structures Pupils: Equal, round and reactive pupils present Neck Neck: Yes normal visual inspection and Yes no lymphadenopathy Thyroid: Thyroid normal Resp Effort & Inspection: normal respiratory effort and able to speak in complete sentences Auscultation: clear to auscultation bilaterally Cardio Rate: regular rate Rhythm: regular rhythm Heart sounds: Normal, physiologic split S2 sound present Peripheral pulses: radial pulses present and posterior tibial pulses present GI Inspection: No distended, No Abdominal panniculus present and Yes obesity Palpation (GI): Soft to palpation, nontender, no guarding, not rigid and No hepatosplenomegaly present Percussion: Yes normal to percussion Auscultation: normal bowel sounds Rectal Exam - Male: Yes deferred Skin General skin exam: no rashes or lesions noted, turgor normal, skin not dry, no jaundice, No spider nevi and no striae Rashes: no rashes Nails: normal Neuro General: oriented to person, oriented to place and oriented to time Cranial nerves: Yes Equal, round and reactive pupils present and Yes Normal hearing present Speech: No Abnormal speech present Extrem General: Yes normal to inspection, No clubbing, No cyanosis and No edema Psych Appearance: grossly normal and well kempt Mental Status: mental status grossly normal Speech and movement: Normal speech and movement present Affect: normal affect Attitude: cooperative Thought process: Normal thought process present and not confabulating Thought content: Normal thought content present Insight: Fair insight present (Psych) Judgement: Fair judgement present (Psych) Assessment & Plan Assessment & Plan (1) Irritable bowel syndrome with diarrhea: Code(s): K58.0 - Irritable bowel syndrome with diarrhea (2) Tubulovillous adenoma of colon: Comment: 07/2023 scope repeat in 1 year Code(s): D12.6 - Benign neoplasm of colon, unspecified Plan He had a good trip to the [facility] over the holidays with his family. He did tell me an interesting story [place] this was a bit scary. He has been using the loperamide 2 tablets twice a day scheduled but still will have breakthrough diarrhea sometimes in the middle of the day and sometimes overnight with explosive watery movements. While he was on vacation he used more up to 6 mg a day and I educate him that he can go safely up to 8 mg a day. He buys this [id number]. Again, we have not been able to get Viberzi or Lotronex approved for him there was insurance and it was 600 dollar co-pay. Again we have a long discussion about what could be causing this. We have ruled out most major, life-threatening reasons for diarrhea so this likely is functional. One possible reason could be an overactive immune system after he had an intestinal infection. It is difficult to say how long this can go on for depending on the person and what their system is reacting to. Again he has had a negative RAST panel for food allergies, an unremarkable colonoscopy with biopsies, negative CRP and fecal calprotectin for IBD, and he has done a lot of experimenting to try to find foods that drive his symptoms without a lot of luck. He has mostly a meat and potatoes kind of yamileth. The only other thing I can think of since the Creon also was not effective (thinking exocrine pancreatic insufficiency) is that it could be small-bowel bacterial overgrowth with gas and bloating driving the diarrhea. With this in mind will try to get a course of Xifaxan. 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 Return office visit in 3 weeks. Medications: New rifaximin (Xifaxan) 550 mg PO BID 14 days 28 tabs 0RF K58.0 - Irritable bowel syndrome with diarrhea Coding Level of Care Code Est Pt Level 3 (54393) Diagnoses Irritable bowel syndrome with diarrhea K58.0 Tubulovillous adenoma of colon D12.6
[2023-11-17 08:36] VITALS: BP 160/81; PULSE 73; BMI 30.8
== END 2023-11-17 09:17 | disposition home or self-care (01) ==
PROVIDERS: PCP Internal Medicine; Visit Provider Nurse Practitioner
DX: K58.0 Irritable bowel syndrome with diarrhea (principal); D12.6 Benign neoplasm of colon, unspecified
CPT/HCPCS: 99213

== ENCOUNTER → 2023-11-17 08:18 | Outpatient (BNVA) | payer MEDICARE, SELFPAY | PROVIDERS: PCP Internal Medicine; Visit Provider Nurse Practitioner | DX: K58.0 Irritable bowel syndrome with diarrhea (principal); D12.6 Benign neoplasm of colon, unspecified | CPT/HCPCS: 99212 ==

== ENCOUNTER 2023-12-09 07:40 | Outpatient (AMB) | payer MEDICARE, SELFPAY ==
--- NOTE | 2023-12-09 07:48 | A.OFFVIS_ITS ---
Intake Vital Signs 12/09/23 07:49 12/09/23 07:51 Height 6 ft Weight 222 lb 10.67 oz BMI 30.2 BP 201/101 H 163/83 H Blood Pressure Location Lt brachial Rt brachial Position Sitting Sitting Pulse 98 80 Comment bp recheck opposite arm Intake Visit Reasons: 3 week follow up Intake Note: Erik presents in the office as a 3 week follow up. CC: He states that he is having questions about the Rx that he was prescribed. [employer] Bpm Developer Required: No Allergies meperidine [Demerol] Allergy (Unknown, Verified 12/09/23 07:49) Unknown nitroglycerin [NITROGLYCERIN] Allergy (Unknown, Verified 12/09/23 07:49) HYPOTENSION, no reactions were documented HPI 3 week follow up HPI Details Assessment & Plan (1) Irritable bowel syndrome with diarrh ea: Code(s): K58.0 - Irritable bowel syndrome with diarrhea (2) Tubulovillous adenoma of colon: Comment: 07/2023 scope repeat in 1 year Code(s): D12.6 - Benign neoplasm of colon, unspecified Plan He had a good trip to the [facility] over the holidays with his family. He did tell me an interesting story [place] how this was a bit scary. He has been using the loperamide 2 tablets twice a day scheduled but still will have breakthrough diarrhea sometimes in the middle of the day and sometimes overnight with explosive watery movements. While he was on vacation he used more up to 6 mg a day and I educate him that he can go safely up to 8 mg a day. He buys this [id number]. Again, we have not been able to get Viberzi or Lotronex approved for him there was insurance and it was 600 dollar co-pay. Again we have a long discussion about what could be causing this. We have ruled out most major, life-threatening reasons for diarrhea so this likely is functional. One possible reason could be an overactive immune system after he had an intestinal infection. It is difficult to say how long this can go on for depending on the person and what their system is reacting to. Again he has had a negative RAST panel for food allergies, an unremarkable colonoscopy with biopsies, negative CRP and fecal calprotectin for IBD, and he has done a lot of experimenting to try to find foods that drive his symptoms without a lot of luck. He has mostly a meat and potatoes kind of yamileth. The only other thing I can think of since the Creon also was not effective (thinking exocrine pancreatic insufficiency) is that it could be small-bowel bacterial overgrowth with gas and bloating driving the diarrhea. With this in mind will try to get a course of Xifaxan. 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 Return office visit in 3 weeks. 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 We do not want to use Flagyl because he does enjoy a scotch every night and disulfiram reaction would not be pleasant 2. Instead will try Bactrim as as another medication use to treat diarrhea/small-bowel bacterial overgrowth and will see what effect it has. This is a relatively inexpensive medication so he is agreeable to this. He continues taking 2 Imodium twice a day and that gets him through most of the day but he does have breakthrough diarrhea later in the day. We might want to go to 3 times a day dosing but will see as this is difficult for adherent/compliance. Return office visit in 3 weeks to see how he is doing. [facility] Medical History Pre-op examination Hyperlipidemia CAD (coronary artery disease) Hypertension Surgical History Hx of cardiac catheterization Hx of colonoscopy History of esophagogastroduodenoscopy (EGD) History of surgery H/O rectal polypectomy Family History Father No problems noted. Mother Heart disease Brother CAD (coronary artery disease) Paternal Uncle Myocardial infarction Social History Housing: House Alcohol intake: current Alcohol intake frequency: a few times a week Alcohol type: hard liquor Patient Tobacco Use Status: Former Tobacco user e-Cigarette/Vaping Use: Never Used Second Hand Smoke Exposure: No service: No Current occupational status: retired Cognitive needs: No Hearing needs: No Vision needs: No Review of Systems Const Denies fatigue, Denies fever(s), Denies night sweats, Denies poor appetite and Denies weight loss ENT Reports Normal hearing present, Denies dental pain, Denies dysphagia, Denies hearing loss, Denies mouth pain, Denies odynophagia, Denies throat swelling, Denies tongue swelling and Reports other (Dentition adequate) Card Reports no additional complaints Resp Reports no additional complaints GI Details: Denies abdominal pain, Denies melena, Reports bloating, Denies hematochezia, Denies constipation, Denies GI cramping, Denies dysphagia, Denies excessive flatus, Denies early satiety, Denies heartburn, Reports diarrhea, Denies nausea, Denies odynophagia, Denies vomiting and Denies hematemesis Skin/Breast Denies pruritus, Denies lesions, Denies rash and Denies jaundice Neuro Reports Normal hearing present and Denies Abnormal speech present Endo Denies fatigue Aller/Immun Denies throat swelling and Denies tongue swelling Physical Exam Vital Signs: Last Vital Signs Pulse 80 12/09/23 07:51 BP 163/83 H 12/09/23 07:51 BMI result Body Mass Index 30.2 Const General: cooperative, no acute distress, well developed and well groomed Nutritional Appearance: well nourished and obese Orientation/consciousness: oriented to person, oriented to place and oriented to time Limitations: No language barrier HEENT Head: Yes normocephalic and Yes atraumatic Eyes General: appearance normal, both eyes and all related structures Pupils: Equal, round and reactive pupils present Neck Neck: Yes normal visual inspection and Yes no lymphadenopathy Thyroid: Thyroid normal Resp Effort & Inspection: normal respiratory effort and able to speak in complete sentences Auscultation: clear to auscultation bilaterally Cardio Rate: regular rate Rhythm: regular rhythm Heart sounds: Normal, physiologic split S2 sound present Peripheral pulses: radial pulses present and posterior tibial pulses present GI Inspection: No distended, No Abdominal panniculus present and Yes obesity Palpation (GI): Soft to palpation, nontender, no guarding, not rigid and No hepatosplenomegaly present Percussion: Yes normal to percussion Auscultation: normal bowel sounds Rectal Exam - Male: Yes deferred Skin General skin exam: no rashes or lesions noted, turgor normal, skin not dry, no jaundice, No spider nevi and no striae Rashes: no rashes Nails: normal Neuro General: oriented to person, oriented to place and oriented to time Cranial nerves: Yes Equal, round and reactive pupils present and Yes Normal hearing present Speech: No Abnormal speech present Extrem General: Yes normal to inspection, No clubbing, No cyanosis and No edema Psych Appearance: grossly normal and well kempt Mental Status: mental status grossly normal Speech and movement: Normal speech and movement present Affect: normal affect Attitude: cooperative Thought process: Normal thought process present and not confabulating Thought content: Normal thought content present Insight: Fair insight present (Psych) Judgement: Fair judgement present (Psych) Assessment & Plan Assessment & Plan (1) Tubulovillous adenoma of colon: Comment: 07/2023 scope repeat in 1 year Code(s): D12.6 - Benign neoplasm of colon, unspecified (2) Irritable bowel syndrome with diarrhea: Code(s): K58.0 - Irritable bowel syndrome with diarrhea (3) Small intestinal bacterial overgrowth (SIBO), hydrogen subtype: Code(s): K63.8211 - Small intestinal bacterial overgrowth, hydrogen-subtype Plan 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 We do not want to use Flagyl because he does enjoy a scotch every night and disulfiram reaction would not be pleasant 2. Instead will try Bactrim as as another medication use to treat diarrhea/small-bowel bacterial overgrowth and will see what effect it has. This is a relatively inexpensive medication so he is agreeable to this. He continues taking 2 Imodium twice a day and that gets him through most of the day but he does have breakthrough diarrhea later in the day. We might want to go to 3 times a day dosing but will see as this is difficult for adherent/compliance. Return office visit in 3 weeks to see how he is doing. Medications: New sulfamethoxazole-trimethoprim 800-160 mg (Bactrim DS) 1 tab PO BID 14 days 28 tabs 0RF K58.0 - Irritable bowel syndrome with diarrhea, K63.8211 - Small intestinal bacterial overgrowth, hydrogen-subtype On Hold rifaximin (Xifaxan) Hold Comment: too expensive 550 mg PO BID 14 days 28 tabs 0RF K58.0 - Irritable bowel syndrome with diarrhea Coding Level of Care Code Est Pt Level 3 (61352) Diagnoses Tubulovillous adenoma of colon D12.6 Irritable bowel syndrome with diarrhea K58.0 Small intestinal bacterial overgrowth (SIBO), hydrogen subtype K63.8211
[2023-12-09 07:49] VITALS: BP 201/101; PULSE 98; BMI 30.2
[2023-12-09 07:51] VITALS: BP 163/83; PULSE 80
== END 2023-12-09 08:15 | disposition home or self-care (01) ==
PROVIDERS: PCP Internal Medicine; Visit Provider Nurse Practitioner
DX: D12.6 Benign neoplasm of colon, unspecified (principal); K58.0 Irritable bowel syndrome with diarrhea; K63.8211 Small intestinal bacterial overgrowth, hydrogen-subtype
CPT/HCPCS: 99213

== ENCOUNTER → 2023-12-09 07:40 | Outpatient (BNVA) | payer MEDICARE, SELFPAY | PROVIDERS: PCP Internal Medicine; Visit Provider Nurse Practitioner | DX: K63.8211 Small intestinal bacterial overgrowth, hydrogen-subtype (principal); K58.0 Irritable bowel syndrome with diarrhea; D12.6 Benign neoplasm of colon, unspecified | CPT/HCPCS: 99212 ==

== ENCOUNTER 2023-12-30 08:11 | Outpatient (AMB) | payer MEDICARE, SELFPAY ==
[2023-12-30 08:13] VITALS: BP 155/88; PULSE 80; BMI 30.5
--- NOTE | 2023-12-30 08:13 | A.OFFVIS_ITS ---
Intake Vital Signs 12/30/23 08:13 Height 6 ft Weight 224 lb 13.944 oz BMI 30.5 BP 155/88 H Blood Pressure Location Rt brachial Position Sitting Pulse 80 Pulse Source Pulse Oximeter Intake Visit Reasons: 3 week follow up IBS Intake Note: Pt presents to the office today for a 3 week follow up. Pt states he is having stomach pain everyday and almost everyday is having diarrhea. Pt denies any N/V. Allergies meperidine [Demerol] Allergy (Unknown, Verified 12/30/23 08:15) Unknown nitroglycerin [NITROGLYCERIN] Allergy (Unknown, Verified 12/30/23 08:15) HYPOTENSION, no reactions were documented HPI 3 week follow up IBS HPI Details Assessment & Plan (1) Tubulovillous adenoma of colon: Comment: 07/2023 scope repeat in 1 year Code(s): D12.6 - Benign neoplasm of colon, unspecified (2) Irritable bowel syndrome with diarrh ea: Code(s): K58.0 - Irritable bowel syndrome with diarrhea (3) Small intestinal bacterial overgrowt h (SIBO), hydrogen subtype: Code(s): K63.8211 - Small intestinal bacterial overgrowth, hydrogen-subtype Plan 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 We do not want to use Flagyl because he does enjoy a scotch every night and disulfiram reaction would not be pleasant 2. Instead will try Bactrim as as another medication use to treat diarrhea/small-bowel bacterial overgrowth and will see what effect it has. This is a relatively inexpensive medication so he is agreeable to this. He continues taking 2 Imodium twice a day and that gets him through most of the day but he does have breakthrough diarrhea later in the day. We might want to go to 3 times a day dosing but will see as this is difficult for adherent/compliance. Return office visit in 3 weeks to see how he is doing. Medications: New sulfamethoxazole-t rimethoprim 800-16 0 mg (Bactrim DS) 1 tab PO BID 14 d ays 28 tabs 0RF K58.0 - Irritable bowel syndrome wit h diarrhea, K63.82 11 - Small intesti nal bacterial over growth, hydrogen-s ubtype On Hold rifaximin (Xifaxan ) Hold Comment: too expensive 550 mg PO BID 14 days 28 tabs 0RF K58.0 - Irritable bowel syndrome wit h diarrhea TODAY'S VISIT Overall, he is really uncertain whether the Bactrim helped or not the diarrhea. Certainly it to do not make it worse. At this point he would like to self advocate with his insurance company and see if he can get them to pay for Viberzi and or Xifaxan. Obviously this is fine. Today he has failed Carafate, cholestyramine, Imodium, Creon, a trial of Bactrim as an antibiotic (Flagyl can not be used because he enjoys scotch at night) and his workup has been negative for any reversible pathology other than irritable bowel syndrome. At this point his follow-up will be determined depending on his success with the insurance carrier. [facility] Medical History (Updated 12/30/23 @ 08:21 by LARRY Anaya) Physical exam Pre-op examination Hyperlipidemia CAD (coronary artery disease) Hypertension Surgical History Hx of cardiac catheterization Hx of colonoscopy History of esophagogastroduodenoscopy (EGD) History of surgery H/O rectal polypectomy Family History Father No problems noted. Mother Heart disease Brother CAD (coronary artery disease) Paternal Uncle Myocardial infarction Social History Housing: House Alcohol intake: current Alcohol intake frequency: a few times a week Alcohol type: hard liquor Patient Tobacco Use Status: Former Tobacco user e-Cigarette/Vaping Use: Never Used Second Hand Smoke Exposure: No service: No Current occupational status: retired Cognitive needs: No Hearing needs: No Vision needs: No Review of Systems Const Denies fatigue, Denies fever(s), Denies night sweats, Denies poor appetite and Denies weight loss ENT Reports Normal hearing present, Denies dental pain, Denies dysphagia, Denies hearing loss, Denies mouth pain, Denies odynophagia, Denies throat swelling, Denies tongue swelling and Reports other (Dentition adequate) Card Reports no additional complaints Resp Reports no additional complaints GI Details: Denies abdominal pain, Denies melena, Reports bloating, Denies hematochezia, Denies constipation, Denies GI cramping, Denies dysphagia, Reports excessive flatus, Denies early satiety, Denies heartburn, Reports diarrhea, Denies nausea, Denies odynophagia, Denies vomiting and Denies hematemesis Skin/Breast Denies pruritus, Denies lesions, Denies rash and Denies jaundice Neuro Reports Normal hearing present and Denies Abnormal speech present Endo Denies fatigue Aller/Immun Denies throat swelling and Denies tongue swelling Physical Exam Vital Signs: Last Vital Signs Pulse 80 12/30/23 08:13 BP 155/88 H 12/30/23 08:13 BMI result Body Mass Index 30.5 Const General: cooperative, no acute distress, well developed and well groomed Nutritional Appearance: well nourished and obese Orientation/consciousness: oriented to person, oriented to place and oriented to time Limitations: No language barrier HEENT Head: Yes normocephalic and Yes atraumatic Eyes General: appearance normal, both eyes and all related structures Pupils: Equal, round and reactive pupils present Neck Neck: Yes normal visual inspection and Yes no lymphadenopathy Thyroid: Thyroid normal Resp Effort & Inspection: normal respiratory effort and able to speak in complete sentences Auscultation: clear to auscultation bilaterally Cardio Rate: regular rate Rhythm: regular rhythm Heart sounds: Normal, physiologic split S2 sound present Peripheral pulses: radial pulses present and posterior tibial pulses present GI Inspection: No distended, No Abdominal panniculus present and Yes obesity Palpation (GI): Soft to palpation, nontender, no guarding, not rigid and No hepatosplenomegaly present Percussion: Yes normal to percussion Auscultation: normal bowel sounds Rectal Exam - Male: Yes deferred Skin General skin exam: no rashes or lesions noted, turgor normal, skin not dry, no jaundice, No spider nevi and no striae Rashes: no rashes Nails: normal Neuro General: oriented to person, oriented to place and oriented to time Cranial nerves: Yes Equal, round and reactive pupils present and Yes Normal hearing present Speech: No Abnormal speech present Extrem General: Yes normal to inspection, No clubbing, No cyanosis and No edema Psych Appearance: grossly normal and well kempt Mental Status: mental status grossly normal Speech and movement: Normal speech and movement present Affect: normal affect Attitude: cooperative Thought process: Normal thought process present and not confabulating Thought content: Normal thought content present Insight: Fair insight present (Psych) Judgement: Fair judgement present (Psych) Assessment & Plan Assessment & Plan (1) Small intestinal bacterial overgrowth (SIBO), hydrogen subtype: Code(s): K63.8211 - Small intestinal bacterial overgrowth, hydrogen-subtype (2) Irritable bowel syndrome with diarrhea: Code(s): K58.0 - Irritable bowel syndrome with diarrhea Plan Overall, he is really uncertain whether the Bactrim helped or not the diarrhea. Certainly it to do not make it worse. At this point he would like to self advocate with his insurance company and see if he can get them to pay for Viberzi and or Xifaxan. Obviously this is fine. Today he has failed Carafate, cholestyramine, Imodium, Creon, a trial of Bactrim as an antibiotic (Flagyl can not be used because he enjoys scotch at night) and his workup has been negative for any reversible pathology other than irritable bowel syndrome. At this point his follow-up will be determined depending on his success with the insurance carrier. Medications: New eluxadoline (Viberzi) must administer with a meal/food 75 mg PO BID 60 tabs 5RF K58.0 - Irritable bowel syndrome with diarrhea Discontinued rifaximin (Xifaxan) Discontinued Reason: Insurance Denied 550 mg PO BID 14 days 28 tabs 0RF K58.0 - Irritable bowel syndrome with diarrhea sulfamethoxazole-trimethoprim 800-160 mg (Bactrim DS) Discontinued Reason: Patient Completed Course 1 tab PO BID 14 days 28 tabs 0RF K58.0 - Irritable bowel syndrome with diarrhea, K63.8211 - Small intestinal bacterial overgrowth, hydrogen-subtype On Hold [id number] 36,000-114,000- 180,000 unit (Creon) Hold Comment: did not work 2 caps PO BID 120 caps 6RF K58.0 - Irritable bowel syndrome with diarrhea Coding Level of Care Code Est Pt Level 3 (10466) Diagnoses Small intestinal bacterial overgrowth (SIBO), hydrogen subtype K63.8211 Irritable bowel syndrome with diarrhea K58.0
== END 2023-12-30 09:07 | disposition home or self-care (01) ==
PROVIDERS: PCP Internal Medicine; Visit Provider Nurse Practitioner
DX: K63.8211 Small intestinal bacterial overgrowth, hydrogen-subtype (principal); K58.0 Irritable bowel syndrome with diarrhea
CPT/HCPCS: 99213

== ENCOUNTER → 2023-12-30 08:11 | Outpatient (BNVA) | payer MEDICARE, SELFPAY | PROVIDERS: PCP Internal Medicine; Visit Provider Nurse Practitioner | DX: K63.8211 Small intestinal bacterial overgrowth, hydrogen-subtype (principal); K58.0 Irritable bowel syndrome with diarrhea | CPT/HCPCS: 99212 ==

== ENCOUNTER 2024-01-27 09:44 | Outpatient (AMB) | payer MEDICARE, SELFPAY ==
[2024-01-27 09:47] VITALS: BP 138/92; PULSE 70; O2SAT 97; BMI 31.1
--- NOTE | 2024-01-27 09:47 | A.OFFPC_ITS ---
Vital Signs 01/27/24 09:47 Height 6 ft Weight 229 lb BMI 31.1 BP 138/92 H Blood Pressure Location Lt brachial Position Sitting Pulse 70 Pulse Source Pulse Oximeter Pulse Oximetry (%) 97 Oxygen Delivery Method Room Air Intake Visit Reasons: PE Costumer Required: No Accompanied by: Self / Same As Patient Allergies meperidine [Demerol] Allergy (Unknown, Verified 01/27/24 09:49) Unknown nitroglycerin [NITROGLYCERIN] Allergy (Unknown, Verified 01/27/24 09:49) HYPOTENSION, no reactions were documented Medication List - Last Reconciled 01/27/24 by Federico Falcon MD amlodipine 10 mg (2 x 5 mg) PO DAILY carvedilol 12.5 mg PO BID eluxadoline (Viberzi) 75 mg PO BID gabapentin 300 mg PO DAILY hydrochlorothiazide 25 mg PO DAILY [id number]-[id number] 36,000-114,000- 180,000 unit (Creon) 2 caps PO BID loperamide (Imodium A-D) 2 mg PO Q6H PRN pramipexole 0.5 mg PO BID pregabalin 75 mg PO BID Tobacco use date assessed: 01/27/24 Fall risk assessment: No Falls in past year Last assessed Fall Risk: 01/27/24 Dental Screening Dental Screen Date: 01/27/24 Did you have a dental visit in the last 12 months?: No Did you have a dental problem in the last 6 months where you did not have access to dental care?: No HPI PE HPI Details HTN on Rx; doing well PFSH Medical History (Updated 01/27/24 @ 13:08 by Federico Falcon MD) Physical exam Pre-op examination Hyperlipidemia CAD (coronary artery disease) Hypertension Surgical History Hx of cardiac catheterization Hx of colonoscopy History of esophagogastroduodenoscopy (EGD) History of surgery H/O rectal polypectomy Family History Father No problems noted. Mother Heart disease Brother CAD (coronary artery disease) Paternal Uncle Myocardial infarction Social History Housing: House Alcohol intake: current Alcohol intake frequency: a few times a week Alcohol type: hard liquor Patient Tobacco Use Status: Former Tobacco user e-Cigarette/Vaping Use: Never Used Second Hand Smoke Exposure: No service: No Current occupational status: retired Cognitive needs: No Hearing needs: No Vision needs: No Questionnaire PHQ-9 Over the last 2 weeks, how often have you been bothered by any of the following problems? 1. Little interest or pleasure in doing things: not at all 2. Feeling down, depressed, or hopeless: not at all 3. Trouble falling or staying asleep, or sleeping too much: not at all 4. Feeling tired or having little energy: not at all 5. Poor appetite or overeating: not at all 6. Feeling bad about yourself - or that you are a failure or have let yourself or your family down: not at all 7. Trouble concentrating on things, such as reading the newspaper or watching television: not at all 8. Moving or speaking so slowly that other people could have noticed. Or the opposite - being so fidgety or restless that you have been moving around a lot more than usual: not at all 9. Thoughts that you would be better off or of hurting yourself in some way: not at all Total score: 0 Depression Screening Interpretation: Negative Depression Screening Done: Yes 75339 - PHQ-9 Billing: Yes Source: Developed by Drs. Mateo Crockett, Yessi Ramos, Pineda Crowe and colleagues, with an educational boston from [employer] ([email or web address]). Thrive Questionnaire Date Thrive assessed: 01/27/24 I am a: Patient What is your living situation today?: I have a steady place to live Within the past 12 months, did the food you bought not last and you didn't have the money to get more?: Never true Within the past 12 months, did you worry whether your food would run out before you got money to buy more?: Never true Do you have trouble paying for medicines?: No Do you have trouble getting transportation to medical appointments?: No Do you have trouble paying your heating and electricity bill?: No Do you have trouble taking care of your child, family member or friend?: No Do you have trouble with day-to-day activities such as bathing, preparing meals, shopping, managing finances, etc.?: No Are you currently unemployed and looking for a job?: No Are you interested in more education?: No Please select the resources that you would like help with: None Currently or been in a relationship where the following occur: no concerns reported THRIVE Score: 0 AUDIT C Alcohol Use Questionnaire (AUDIT-C) 1. How often do you have a drink containing alcohol?: Never 2. How many drinks containing alcohol do you have on a typical day when you are drinking?: 1 or 2 3. How often do you have six or more drinks on one occasion?: Never Total Score: 0 Score Reviewed/Action Taken: Yes MARY-7 AMB Questionnaire MARY-7 Date MARY - 7 assessed: 01/27/24 Feeling nervous, anxious, or on edge: 0 = Not at all Not being able to stop or control worryin = Not at all Worrying too much about different things: 0 = Not at all Trouble relaxin = Not at all Being so restless that it is hard to sit still: 0 = Not at all Becoming easily annoyed or irritable: 0 = Not at all Feeling afraid as if something awful might happen: 0 = Not at all Total MARY-7 score (0-4 normal; 5-9 mild; 10-14 moderate; 15-21 severe): 0 Source: Developed by Drs. Mateo Crockett, Yessi Ramos, Pineda Crowe and colleagues, with an educational boston from [employer] ([email or web address]). MARY-7 Assessment Billing MARY-7 Assessment Tool: MARY-7 Assessment 38778 Review of Systems Const Denies chills, Denies fatigue, Denies headache(s) and Denies weight loss Eyes Denies change in vision, Denies diplopia and Denies eye pain ENT Denies vertigo, Denies dizziness, Denies headache(s) and Denies nasal discharge Card Denies chest pain, Denies rapid heart rate and Denies dyspnea on exertion Resp Denies chest congestion, Denies cough, Denies pain with cough and Denies dyspnea on exertion GI Denies abdominal pain, Denies hematochezia and Denies change in bowel habits Musc Denies myalgias, Denies arthralgias and Denies joint swelling Skin/Breast Denies lesions and Denies unusual bruising Neuro Denies vertigo, Denies dizziness, Denies headache(s) and Denies focal weakness Endo Denies fatigue Physical exam (Primary Care) Vital Signs: Last Vital Signs Pulse 70 01/27/24 09:47 BP 138/92 H 01/27/24 09:47 Pulse Ox 97 01/27/24 09:47 Oxygen Delivery Method Room Air 01/27/24 09:47 BMI result Body Mass Index 31.1 Tobacco/Smoking Status: Tobacco use Status Tobacco use date assessed 01/27/24 01/27/24 09:49 Patient Tobacco Use Status Former Tobacco user 01/27/24 09:49 e-Cigarette/Vaping Use Never Used 01/27/24 09:49 PHQ-9: PHQ-9 Score PHQ-9: Total score 0 01/27/24 09:53 Depression Screening Interpretation: Negative Thrive Assessment: Date of Thrive Assessment Date Thrive assessed 01/27/24 01/27/24 09:49 Currently or been in a relationship where the following occur: no concerns reported Const General: cooperative, healthy appearing and no acute distress Orientation/consciousness: oriented to person, oriented to place and oriented to time HENMT Head: Yes normal to inspection, Yes normocephalic and Yes atraumatic Mouth: Normal oral and palatal mucosa present and tongue normal Throat: Yes posterior oropharynx normal and Yes uvula midline Eyes General: appearance normal, both eyes and all related structures Neck Neck: Yes normal visual inspection, Yes full ROM and Yes no lymphadenopathy Thyroid: Thyroid normal Carotids: normal carotid upstroke Chest Chest palpation & inspection: normal inspection of the chest Resp Effort & Inspection: normal respiratory effort and able to speak in complete sentences Auscultation: clear to auscultation bilaterally Cardio Jugular venous distension: no JVD Palpation: normal PMI Rate: regular rate Rhythm: regular rhythm Heart sounds: S1 normal heart sound present and S2 normal heart sound present GI Inspection: Yes normal to inspection Palpation (GI): Soft to palpation and No hepatosplenomegaly present Auscultation: normal bowel sounds General: Yes no CVA tenderness Back/Spine/Pelvis Back: no CVA tenderness Skin General skin exam: no rashes or lesions noted Neuro General: oriented to person, oriented to place and oriented to time Extrem General: Yes normal to inspection and Yes full ROM Assessment and Plan Assessment & Plan (1) Physical exam: Code(s): Z00.00 - Encounter for general adult medical examination without abnormal findings Plan: stable; do labs (2) Hypertension: Code(s): I10 - Essential (primary) hypertension Plan: stable; same rx Orders: Orders Lipid Panel Today Z13.220 - Encounter for screening for lipoid disorders Complete Blood Count Auto Diff Today Z13.0 - Encounter for screening for diseases of the blood and blood-forming organs and certain disorders involving the immune mechanism Comprehensive [place]. Panel Fast Today Z13.9 - Encounter for screening, unspecified Thyroid Stimulating Hormone Today Z13.29 - Encounter for screening for other suspected endocrine disorder Coding Level of Care Code Est Pt Prev Care >65y(28151) Diagnoses Physical exam Z00.00 Hypertension I10 Additional Codes MARY-7 Assessment Billing - MARY-7 Assessment Tool: MARY-7 Assessment [id number] ([id number])
== END 2024-01-27 10:32 | disposition home or self-care (01) ==
PROVIDERS: PCP Internal Medicine; Visit Provider Internal Medicine
DX: Z00.00 Encounter for general adult medical examination without abnormal findings (principal); I10 Essential (primary) hypertension
CPT/HCPCS: 99397

== ENCOUNTER 2024-03-02 06:59 | Emergency (ER) | payer MEDICARE, SELFPAY ==
[2024-03-02 07:01] VITALS: BP 185/89; PULSE 80; RESP 16; TEMP 37; O2SAT 95
--- NOTE | 2024-03-02 07:25 | ED.EYEPROB ---
HPI - Eye Problem General Chief complaint: Eye Problems Stated complaint: eye pain, ? bp Time Seen by Provider: 03/02/24 07:25 Source: patient Mode of arrival: ambulatory Limitations: no limitations History of Present Illness ED Provider: Remberto Youssef NP HPI Narrative: Patient is a 73-year-old male with history of hypertension, retinal detachment in the past, IBS, HLD, CAD presenting to the emergency department with complaint of vision changes to his left eye since 9:00 a.m. yesterday. Reports that the vision changes began as a small area of blurred vision in the center of his visual field of his left eye. Throughout the day, the area of blurriness increased, then in the evening he noted ?blue flashes of light. ? States now he just has a small area of light visible in his lateral periphery. He denies pain but reports a discomfort, stating he feels as though he needs to rub his eye. Denies any visual changes to right eye. States he wears glasses, does not wear contacts. States he did not come in yesterday because at 1 point in the afternoon he felt his symptoms were improving. Denies any headache, nausea, vomiting, dizziness. chief complaint: vision change Onset (ago): hour(s) Onset description: gradual Duration: progressively worsening Location: left eye Eye Symptoms: decreased vision and blurry vision Context: other (History of retinal detachment 10-15 years ago, unsure in which eye) Associated symptoms: none Treatments Prior to Arrival: none Related Data Home Medications ?Medication ?Instructions ?Recorded ?Confirmed loperamide 2 mg capsule (Imodium 2 mg PO Q6H PRN loose stools 03/17/23 01/27/24 A-D) pramipexole 0.5 mg tablet 0.5 mg PO BID 03/17/23 01/27/24 gabapentin 300 mg capsule 300 mg PO DAILY 11/17/23 01/27/24 pregabalin 75 mg capsule 75 mg PO BID 11/17/23 01/27/24 Previous Rx's ?Medication ?Instructions ?Recorded carvedilol 12.5 mg tablet 12.5 mg PO BID #180 tabs 09/05/23 [id number] 2 cap PO BID #120 caps 09/22/23 36,000-114,000-180,000 unit capsule,delay rel (Creon) amlodipine 5 mg tablet 10 mg (2 x 5 mg) PO DAILY #90 tabs 12/03/23 eluxadoline 75 mg tablet (Viberzi) 75 mg PO BID #60 tabs 12/30/23 hydrochlorothiazide 25 mg tablet 25 mg PO DAILY #90 tabs 02/18/24 Allergies Allergy/AdvReac Type Severity Reaction Status Date / Time meperidine [Demerol] Allergy Unknown Unknown Verified 03/02/24 07:05 nitroglycerin [NITROGLYCERIN] Allergy Unknown HYPOTENSION, Verified 03/02/24 07:05 no reactions were documented Review of Systems Review of Systems: As per HPI. Yes all other systems are reviewed and are negative Constitutional: Constitutional: Reports as per HPI [facility] Past Medical History Medical History (Updated 03/02/24 @ 08:04 by Andria Youssef NP) Physical exam Pre-op examination Hyperlipidemia CAD (coronary artery disease) Hypertension Surgical History Hx of cardiac catheterization Hx of colonoscopy History of esophagogastroduodenoscopy (EGD) History of surgery H/O rectal polypectomy Family History Family History Father No problems noted. Mother Heart disease Brother CAD (coronary artery disease) Paternal Uncle Myocardial infarction Social History Social History Housing: House Alcohol intake: current Alcohol intake frequency: a few times a week Alcohol type: hard liquor Patient Tobacco Use Status: Former Tobacco user e-Cigarette/Vaping Use: Never Used Second Hand Smoke Exposure: No Advance Directives: No Advance Directives Information Provided: No service: No Current occupational status: retired Cognitive needs: No Hearing needs: No Vision needs: No Physical Exam Vital Signs: Vital Signs: Last Vital Signs Temp 98.6 F 03/02/24 07:01 Pulse 69 03/02/24 08:09 Resp 16 03/02/24 07:01 BP 163/82 H 03/02/24 08:09 Pulse Ox 95 03/02/24 07:01 O2 Del Method Room Air 03/02/24 07:01 BMI result Body Mass Index 30.0 Vital signs have been reviewed and appear to be correct. Blood pressure elevated. Heart rate normal. Respiratory rate normal. Temperature normal. Oxygen saturation normal. Const: General: cooperative, healthy appearing and no acute distress Orientation/consciousness: oriented to person, oriented to place, oriented to time and patient oriented x3 Limitations: no limitations HEENT: Head: Yes normocephalic and Yes atraumatic Ears: external ears normal General nose exam: Normal external nose present Face and sinus: Yes face symmetric Mouth: oropharynx normal and moist mucous membranes Throat: Yes uvula midline Eyes: Other: IOP R eye: 19, L eye: 14 Alignment and Position: alignment normal and position normal Eyelids: Yes eyelids normal Conjunctivae: conjunctivae normal Sclerae: sclerae normal Pupils: Equal, round and reactive pupils present EOM: EOMs intact bilaterally Direct Ophthalmoscopy: no photophobia positive consensual response in the left eye and positive consensual response in the right eye Neck: Neck: Yes normal visual inspection and Yes supple Resp: Effort & Inspection: normal respiratory effort and able to speak in complete sentences Auscultation: clear to auscultation bilaterally Cardio: Rate: regular rate Rhythm: regular rhythm Heart sounds: S1 normal heart sound present and S2 normal heart sound present GI: Palpation (GI): Soft to palpation and nontender Auscultation: normoactive bowel sounds : General: Yes no CVA tenderness Back/Spine/Pelvis: Back: no CVA tenderness Skin: General skin exam: elasticity normal and turgor normal Neuro: General: oriented to person, oriented to place, oriented to time, patient oriented x3, moves all extremities, no focal motor deficits and CN's II-XI intact bilaterally Cranial nerves: Yes Equal, round and reactive pupils present Cognition (Neuro): normal cognition Extrem: General: Yes full ROM, Yes no pedal edema and Yes no calf tenderness Psych: Mental Status: mental status grossly normal Affect: normal affect Thought process: Normal thought process present Course Reevaluation(s) Reevaluation #1: I examined the patient along with the YARN CLEANER, limited fudoscopic exam able to see some of the blood vessels, no vitreous hemorrhage, bedside ocular ultrasound has a question of retinal irregularity Time: 08:09 Medical Decision Making Medical Decision Making MDM Narrative: Patient is a 73-year-old male with history of hypertension, retinal detachment in the past, IBS, HLD, CAD presenting to the emergency department with complaint of vision changes to his left eye since 9:00 a.m. yesterday. On exam patient is awake, A+Ox3, hypertensive, VS otherwise WNL, afebrile, normal neurological exam without focal deficits, physical exam findings as above. Given reported symptoms and physical exam findings, significant concern for retinal detatchment. IOPs R: 19, L: 14, retinal irregularity noted on ultrasound performed by Dr. Ryder. Spoke with Dr. Johnston's office who is able to see him immediately. BP rechecked and is improving, he states he did take his medications as prescribed this morning. Patient discharged with strict instructions to proceed directly to Dr. Johnston's office for further evaluation and management. Patient verbalized understanding of and agreement with this plan. Differential Diagnosis Differential Diagnoses: The differential diagnosis associated with the presentation includes As per [facility] External Record Review External record reviewed: Inpatient record, Office record and Outpatient record Chronic Conditions Patient?s care impacted by: Hypertension Discharge Plan Discharge Clinical Impression: Blurred vision, left eye Patient Disposition: Home, Self-Care Additional Instructions: You were evaluated in the emergency department today for vision changes to your left eye. We are concerned for a retinal detachment. We have spoken with Dr. Johnston's office and they can see you at 8:20. Please go directly to their office for this appointment. Prescriptions: No Action carvedilol 12.5 mg tablet 12.5 mg PO BID Qty: 180 3RF amlodipine 5 mg tablet 10 mg PO DAILY Qty: 90 8RF hydrochlorothiazide 25 mg tablet 25 mg PO DAILY Qty: 90 8RF pramipexole 0.5 mg tablet 0.5 mg PO BID loperamide [Imodium A-D] 2 mg capsule 2 mg PO Q6H PRN (Reason: loose stools) Creon 36,000-114,000- 180,000 unit capsule,delayed release(DR/EC) 2 cap PO BID Qty: 120 6RF Hold Instructions: did not work Rx Instructions: administer with meals and/or snacks gabapentin 300 mg capsule 300 mg PO DAILY pregabalin 75 mg capsule 75 mg PO BID Viberzi 75 mg tablet 75 mg PO BID Qty: 60 5RF Rx Instructions: must administer with a meal/food Referrals: Valentino Johnston [Physician] - Discharge Date/Time: 03/02/24 08:16 Print Language: Slovenian
[2024-03-02 08:09] VITALS: BP 163/82; PULSE 69
== END 2024-03-02 08:16 | disposition home or self-care (01) ==
PROVIDERS: Emergency Provider Emergency Medicine; PCP Internal Medicine
DX: H53.8 Other visual disturbances (principal); I10 Essential (primary) hypertension; I25.10 Atherosclerotic heart disease of native coronary artery without angina pectoris
CPT/HCPCS: 99283

== ENCOUNTER 2024-03-02 16:30 | Emergency (ER) | payer MEDICARE, SELFPAY ==
--- NOTE | ~2024-03-02 | CT_ITS ---
EXAMINATION: CT HEAD WITHOUT CONTRAST CT ANGIOGRAM HEAD CT ANGIOGRAM NECK CLINICAL INFORMATION: Reason for Exam known L eye blood clot, hx htn, r/o dissection COMPARISON: CT head 07/04/2021 TECHNIQUE: Initial noncontrast solution designer imaging of the head and neck was performed. Noncontrast head CT was also performed. Test bolus sequences followed by intravenous administration 70 mL of Omnipaque 350. Helical imaging was performed in the axial plane from the aortic arch to the skull vertex. Delayed postcontrast imaging of the head was also performed. The data was processed at the marketing technologist's workstation for generation of MIP sequences. Angled MIPs and volume rendered reformatted images were also generated at an offline 3D workstation. Stenoses are assessed in accordance with Layton et al. Quantification of Carotid Stenosis on CT Angiography. AJR 2006. 27(1):13-19. [address] CT examination was performed using dose optimization techniques as appropriate, variously including the following: *Automated exposure control *Adjustment of mA and/or kV according to patient size (this includes techniques or standardized protocols for targeted exams where dose is matched to indication/reason for exam; i.e. extremities or head) *Use of iterative reconstruction technique DLP: 2592 mGy-cm FINDINGS: CT HEAD: There is no evidence of acute intracranial hemorrhage. No mass-effect or ventricular shift is noted. No acute, territorial loss of wells-white differentiation. No abnormal intracranial enhancement is visualized. The ventricles and sulci are appropriate in size and configuration for the patient's stated age. Periventricular and subcortical white matter hypodensity is nonspecific but likely represents chronic microvascular ischemic change. No depressed calvarial fracture. Mild scattered paranasal sinus mucosal thickening. The mastoid air cells are well-aerated. Degenerative changes of the temporomandibular joints. Intracranial atherosclerotic ossification is noted. CTA HEAD: Anterior circulation: Right internal carotid artery: Atherosclerosis without flow-limiting stenosis. Right middle cerebral artery: No hemodynamically significant stenosis. Right anterior cerebral artery: No hemodynamically significant stenosis. Left internal carotid artery: Atherosclerosis without flow-limiting stenosis. Left middle cerebral artery: No hemodynamically significant stenosis. Left anterior cerebral artery: No hemodynamically significant stenosis. Posterior circulation: Right vertebral artery: No hemodynamically significant stenosis. Left vertebral artery: No hemodynamically significant stenosis. Basilar artery: No hemodynamically significant stenosis. Right posterior cerebral artery: Mild stenosis in the P2 segment. Left posterior cerebral artery: No hemodynamically significant stenosis. No high flow vascular malformation or significant aneurysmal dilatation is visualized. The major dural venous sinuses are grossly within normal limits given arterial technique. CTA NECK: Aortic arch: Normal anatomy. Right common carotid artery: Proximally obscured by motion. The visualized aspects are without flow-limiting stenosis. Right proximal internal carotid artery: Calcified and noncalcified atherosclerotic plaque with less than 50% luminal narrowing. Right mid/distal internal carotid artery: No hemodynamically significant stenosis. Left common carotid artery: No hemodynamically significant stenosis. Left proximal internal carotid artery: No hemodynamically significant stenosis. Left mid/distal internal carotid artery: No hemodynamically significant stenosis. Right vertebral artery: There is severe stenosis in the proximal V1 segment of this may be exaggerated by motion. Otherwise patent. Left vertebral artery: No hemodynamically significant stenosis. CT NECK: The patient is edentulous. Multilevel degenerative changes of the cervical spine. CT/CT angio head neck IMPRESSION: CT HEAD: No acute intracranial hemorrhage or territorial loss of wells-white differentiation. CTA NECK: The right vertebral artery origin is obscured by motion and underlying high-grade stenosis cannot be excluded. Calcified and noncalcified atherosclerosis in the right carotid bulb with less than 50% luminal narrowing. CTA HEAD: No proximal vessel occlusion or high-grade stenosis.
[2024-03-02 16:32] VITALS: BP 170/86; PULSE 84; RESP 16; TEMP 36.9; O2SAT 95; BMI 29.0
--- NOTE | 2024-03-02 16:39 | ECG_ITS ---
Test Reason : ?STROKE Blood Pressure : / mmHG Vent. Rate : 083 BPM Atrial Rate : 083 BPM P-R Int : 132 ms QRS Dur : 120 ms QT Int : 416 ms P-R-T Axes : 014 -49 060 degrees QTc Int : 488 ms Normal sinus rhythm Left anterior fascicular block Left ventricular hypertrophy with QRS widening ( R in aVL , Nando product ) Abnormal ECG When compared with ECG of 04-JUL-2021 15:20, No significant change was found Referred By: Morteza Carrion Electronically Signed By:THERON LUA MD
--- NOTE | 2024-03-02 16:44 | ED_ITS ---
HPI - Neuro Symptoms/Deficit General Chief Complaint: Stroke Stated Complaint: eye problem from possible clot? ref by pcp Time Seen by Provider: 03/02/24 16:58 Source: patient and family Mode of arrival: ambulatory Limitations: no limitations History of Present Illness ED Provider: Dr. Aye Dominguez HPI Narrative: Patient comes to the emergency room accompanied by his . Earlier today, patient was seen in the ED here, patient was sent to Dr. Johnston's office for possible retinal detachment. Patient states that he has had increased blurriness in the left eye starting 3 days ago. Patient's symptoms were sent day, patient states he has been seeing no flashes of light in his central vision that started 2 days ago. Then patient has vision went completely agree except for the inferior temporal field vision. Dr. Johnston send the patient to specialist, Dr. Beverly Felton, who did a thorough ocular exam. It was found the patient has a nonreactive left pupil, and mentioned to the patient that she so a blood clot in 1 of the I vessels. Patient was instructed to return to the emergency room to rule out further blood clots. Patient has no further symptoms. Of note, patient known to have uncontrolled hypertension. Patient is supposed to take at home amlodipine 10 mg and carvedilol 12.5 mg oral daily. Per her Ophthalmology, patient was instructed to return to their office in 1 week for a follow-up Related Data Home Medications ?Medication ?Instructions ?Recorded ?Confirmed loperamide 2 mg capsule (Imodium 2 mg PO Q6H PRN loose stools 03/17/23 01/27/24 A-D) pramipexole 0.5 mg tablet 0.5 mg PO BID 03/17/23 01/27/24 gabapentin 300 mg capsule 300 mg PO DAILY 11/17/23 01/27/24 pregabalin 75 mg capsule 75 mg PO BID 11/17/23 01/27/24 Previous Rx's ?Medication ?Instructions ?Recorded carvedilol 12.5 mg tablet 12.5 mg PO BID #180 tabs 09/05/23 [id number] 2 cap PO BID #120 caps 09/22/23 36,000-114,000-180,000 unit capsule,delay rel (Creon) amlodipine 5 mg tablet 10 mg (2 x 5 mg) PO DAILY #90 tabs 12/03/23 eluxadoline 75 mg tablet (Viberzi) 75 mg PO BID #60 tabs 12/30/23 hydrochlorothiazide 25 mg tablet 25 mg PO DAILY #90 tabs 02/18/24 aspirin 325 mg tablet,delayed 325 mg PO DAILY #30 tabs 03/02/24 release carvedilol 25 mg tablet 25 mg PO BID #60 tabs 03/02/24 Allergies Allergy/AdvReac Type Severity Reaction Status Date / Time meperidine [Demerol] Allergy Unknown Unknown Verified 03/02/24 16:36 nitroglycerin [NITROGLYCERIN] Allergy Unknown HYPOTENSION, Verified 03/02/24 16:36 no reactions were documented Review of Systems 2 Review of Systems: Constitutional : No Weight loss, No Fever, No Chills, No Night Sweats, No Fatigue, No Malaise ENT/Mouth : No Hearing loss, No Ear Pain, No Nasal Congestion, No Sinus Pain, No Hoarseness, No sore throat, No Rhinorrhea, No Swallowing Difficulty Eyes: No Eye Pain, No Swelling, No Redness, No Foreign Body, No Discharge, complaining of blue flashes in the central vision couple of days ago, now completely wells except in the inferior temporal visual field Cardiovascular : No Chest Pain, No SOB, No Dyspnea on Exertion, No Orthopnea, No Edema, No Palpitations Respiratory : No Cough, No Sputum, No Wheezing, No Smoke Exposure, No Dyspnea Gastrointestinal : No Nausea, No Vomiting, No Diarrhea, No Constipation, No abdominal Pain, No Hematochezia, No Melena Genitourinary : no irregular bleeding, No Dysuria, No Urinary Frequency, No Hematuria, No Urinary Incontinence, No Urgency, No Flank Pain, No Urinary Flow Changes, No Hesitancy Musculoskeletal : No joint pain, No Myalgias, No Joint Swelling Skin : No Skin Lesions, No rash Neuro : No Weakness, No Numbness, No Paresthesias, No Loss of Consciousness, No Dizziness, No Headache Psych : No Anxiety/Panic, No Depression, No SI/HI/AH/VH, No Social Issues, Heme/Lymph: No Bruising, No Bleeding,No Lymphadenopathy Endocrine : No Polyuria, No Polydipsia, No Temperature Intolerance PMFSH Past Medical History Medical History Physical exam Pre-op examination Hyperlipidemia CAD (coronary artery disease) Hypertension Surgical History Hx of cardiac catheterization Hx of colonoscopy History of esophagogastroduodenoscopy (EGD) History of surgery H/O rectal polypectomy Family History Family History Father No problems noted. Mother Heart disease Brother CAD (coronary artery disease) Paternal Uncle Myocardial infarction Social History Social History Housing: House Alcohol intake: current Alcohol intake frequency: a few times a week Alcohol type: hard liquor Patient Tobacco Use Status: Former Tobacco user e-Cigarette/Vaping Use: Never Used Second Hand Smoke Exposure: No Advance Directives: No Advance Directives Information Provided: No Do you have a plan to hurt others: No Plan service: No Current occupational status: retired Cognitive needs: No Hearing needs: No Vision needs: No Physical Exam 2 Vital Signs: Vital Signs: Last Vital Signs Temp 98.4 F 03/02/24 16:32 Pulse 78 03/02/24 20:22 Resp 19 03/02/24 20:22 BP 173/90 H 03/02/24 20:22 Pulse Ox 95 03/02/24 20:22 O2 Del Method Room Air 03/02/24 20:22 BMI result Body Mass Index 29.0 Const: Other: Appearance: Alert. Oriented X3. No acute distress. Eyes: Both pupils are dilated, patient had tropicamide applied to both eyes. Left pupil and reactive to light. ENT: Pharynx normal. Neck: Normal inspection. Neck supple. No lymph nodes noted. No crepitus CVS: Normal heart rate and rhythm. Pulses normal. Normal S1 and S2 Respiratory: No respiratory distress. Breath sounds normal. No Wheezing. No rales Abdomen: Soft and nontender. No rigidity. No distention. Skin: Skin warm and dry. Normal skin color. Normal skin turgor. Extremities: No lower extremity edema. No Lacerations. No Rash Neuro: Oriented X 3. No motor deficit. No sensory deficit. Moving all extremities. No slurred speech. CN 2 through 12 grossly intact Psych: calm, cooperative, normal affect Course Course Course Narrative: RME- 73-year-old male with past medical history significant for hypertension, hyperlipidemia, coronary artery disease presents for evaluation of left eye visual loss. He reported blurry vision starting on 02/27. He was seen in the ER this morning around 7:30 a.m. and was referred directly to ophthalmology office. He was evaluated by an test development engineer and was referred back to the ED for a stroke workup. NIH stroke score is currently 0. Plan for labs, CT angiography head and neck. Medications Administered Discontinued Medications Generic Name Dose Route Start Last Admin Trade Name Roxann PRN Reason Stop Dose Admin Iohexol 100 ml 03/02/24 18:22 03/02/24 18:22 Iohexol 350 Mg/Ml 100 Ml Infus..Btl IV 03/02/24 18:23 70 ml ONCE ONE Administration Potassium Chloride 40 meq 03/02/24 19:45 03/02/24 20:21 Potassium Chloride Packet 20 Meq Packet PO 03/02/24 19:46 40 meq ONCE ONE Administration Medical Decision Making Medical Decision Making [facility] Narrative: -my interpretation of labs, normal hematology, potassium slightly decreased 3.1, repeated p.o., normal LFTs -CTA report: Right vertebral artery obscured by motion an underlying high-grade stenosis can not be excluded. -I discussed the CT report and the patient's history of today with Dr. Morales, no follow-up needed, no surgical intervention indicated at this time. -patient will be started on aspirin and his carvedilol will be increased room 12.5 mg b.i.d. to 25 mg b.i.d.. Patient instructed to keep a log of his blood pressures. Differential Diagnosis Differential Diagnoses: The differential diagnosis associated with the presentation includes (Retinal artery occlusion in the eye, CVA, TIA) Admission/Observation Consideration of admission/observation: Escalation of care including admission/observation considered (Given patient's symptoms, admission was considered) Consult Healthcare Provider Management of the patient was discussed with: Metal Wire Coating Operator Lab Data [facility] Lab Attestation statement: I reviewed the patient's lab results. 03/02/24 17:10 03/02/24 17:10 Labs: Lab Results 03/02/24 Range/Units 17:10 WBC 6.2 (4.8-10.8) X10*3/uL RBC 4.82 (4.60-5.80) X10*6/uL Hgb 15.4 (14.0-18.0) g/dl Hct 43.9 (42.0-52.0) % MCV 91.1 (80.0-98.0) fL MCH 32.0 (27.0-33.0) pg MCHC 35.1 (31.0-36.0) g/dl RDW 14.8 (11.0-16.0) % Plt Count 232 (160-400) X10*3/uL MPV 9.7 (9.4-12.4) fL Immature Gran % (Auto) 0.3 (0.0-0.4) % Neut % (Auto) 71.6 (45-73) % Lymph % (Auto) 13.1 L (20-40) % [place] % (Auto) 10.9 (2-11) % Eos % (Auto) 3.6 (0-4) % Baso % (Auto) 0.5 (0-2) % Lymph # (Auto) 0.8 L (1.2-4.9) X10*3/uL [place] # (Auto) 0.7 (0.1-1.2) X10*3/uL Eos # (Auto) 0.2 (0.0-0.4) X10*3/uL Baso # (Auto) 0.0 (0.0-0.2) X10*3/uL Abs Immat Gran (auto) 0.02 (0.00-0.03) X10*3/uL Absolute Neuts (auto) 4.4 (2.0-8.3) x10*3/uL Absolute Nucleated RBC 0.000 (0.0-0.012) X10*3/uL Nucleated RBC % (auto) 0.0 (0.0-0.2) /100WBC PT 11.0 L (11.1-13.3) SEC INR 0.9 (0.9-1.1) APTT 27.8 (26.0-36.8) SEC Sodium 146 H (135-145) mmol/L Potassium 3.1 L (3.3-5.1) mmol/L Chloride 105 (96-108) mmol/L Carbon Dioxide 29 (22-29) mmol/L Anion Gap 15 (12-20) BUN 12 (9-16) mg/dL Creatinine 0.88 (0.5-1.4) mg/dL Estim Creat Clear Calc 87.5 Estimated GFR > 60 Random Glucose 90 (60-115) mg/dL Calcium 9.9 (8.4-10.2) mg/dL Total Bilirubin 0.7 (0.0-1.0) mg/dL AST 32 (5-37) U/L ALT 30 (0-40) U/L Alkaline Phosphatase 61 (39-117) U/L Total Protein 7.3 (6.5-8.0) g/dL Albumin 4.4 (3.5-5.0) g/dL Lipase 29 (8-78) U/L Independent Interpretation I performed an independent interpretation of an: CT Scan Radiology Impression Discussion of test interpretation with radiology: I have reviewed the radiologist's reading. Radiologist Impression: CTA HEAD: Anterior circulation: Right internal carotid artery: Atherosclerosis without flow-limiting stenosis. Right middle cerebral artery: No hemodynamically significant stenosis. Right anterior cerebral artery: No hemodynamically significant stenosis. Left internal carotid artery: Atherosclerosis without flow-limiting stenosis. Left middle cerebral artery: No hemodynamically significant stenosis. Left anterior cerebral artery: No hemodynamically significant stenosis. Posterior circulation: Right vertebral artery: No hemodynamically significant stenosis. Left vertebral artery: No hemodynamically significant stenosis. Basilar artery: No hemodynamically significant stenosis. Right posterior cerebral artery: Mild stenosis in the P2 segment. Left posterior cerebral artery: No hemodynamically significant stenosis. No high flow vascular malformation or significant aneurysmal dilatation is visualized. The major dural venous sinuses are grossly within normal limits given arterial technique. CTA NECK: Aortic arch: Normal anatomy. Right common carotid artery: Proximally obscured by motion. The visualized aspects are without flow-limiting stenosis. Right proximal internal carotid artery: Calcified and noncalcified atherosclerotic plaque with less than 50% luminal narrowing. Right mid/distal internal carotid artery: No hemodynamically significant stenosis. Left common carotid artery: No hemodynamically significant stenosis. Left proximal internal carotid artery: No hemodynamically significant stenosis. Left mid/distal internal carotid artery: No hemodynamically significant stenosis. Right vertebral artery: There is severe stenosis in the proximal V1 segment of this may be exaggerated by motion. Otherwise patent. Left vertebral artery: No hemodynamically significant stenosis. CT NECK: The patient is edentulous. Multilevel degenerative changes of the cervical spine. CT/CT angio head neck IMPRESSION: CT HEAD: No acute intracranial hemorrhage or territorial loss of wells-white differentiation. CTA NECK: The right vertebral artery origin is obscured by motion and underlying high-grade stenosis cannot be excluded. Calcified and noncalcified atherosclerosis in the right carotid bulb with less than 50% luminal narrowing. CTA HEAD: No proximal vessel occlusion or high-grade stenosis. Independent Historian Clinical information obtained from an independent historian. History obtained from or confirmed by: Spouse Critical Care Time Critical Care Time Critical Care Time: Yes Total Critical Care Time: 75 Attestation: I have personally provided critical care time. Time includes review of lab data, radiology results, discussion with consultants, and monitoring for potential decompensation. Intervention performed as documented. Discharge Plan Discharge Clinical Impression: Acute retinal artery occlusion, Hypertension, uncontrolled Patient Disposition: Home, Self-Care Instructions: Hypertension (ED) Additional Instructions: Please follow-up with your primary care physician tomorrow. If you have any worsening or new symptoms, please return to the emergency room or call 911 Prescriptions: New aspirin 325 mg tablet,delayed release (DR/EC) 325 mg PO DAILY Qty: 30 1RF carvedilol 25 mg tablet 25 mg PO BID Qty: 60 1RF Rx Instructions: must administer with a meal/food No Action carvedilol 12.5 mg tablet 12.5 mg PO BID Qty: 180 3RF amlodipine 5 mg tablet 10 mg PO DAILY Qty: 90 8RF hydrochlorothiazide 25 mg tablet 25 mg PO DAILY Qty: 90 8RF pramipexole 0.5 mg tablet 0.5 mg PO BID loperamide [Imodium A-D] 2 mg capsule 2 mg PO Q6H PRN (Reason: loose stools) Creon 36,000-114,000- 180,000 unit capsule,delayed release(DR/EC) 2 cap PO BID Qty: 120 6RF Hold Instructions: did not work Rx Instructions: administer with meals and/or snacks gabapentin 300 mg capsule 300 mg PO DAILY pregabalin 75 mg capsule 75 mg PO BID Viberzi 75 mg tablet 75 mg PO BID Qty: 60 5RF Rx Instructions: must administer with a meal/food Print Language: Latvian
[2024-03-02 17:13] LABS: MANUAL DIFF FLAG NO
[2024-03-02 17:21] LABS: Basophils Percent Auto 0.5 % (0-2); Eosinophils Percent Auto 3.6 % (0-4); Hematocrit 43.9 % (42.0-52.0); Hemoglobin 15.4 g/dl (14.0-18.0); Imm Gran Pct Auto 0.3 % (0.0-0.4); Lymphocytes Percent Auto 13.1 % (20-40); Mean Corpuscular HGB Conc 35.1 g/dl (31.0-36.0); Mean Corpuscular Volume 91.1 fL (80.0-98.0); Mean Platelet Volume 9.7 fL (9.4-12.4); Monocytes Percent Auto 10.9 % (2-11); Neutrophils Percent Auto 71.6 % (45-73); Platelet Count 232 X10*3/uL (160-400); Red Blood Count 4.82 X10*6/uL (4.60-5.80); Red Cell Distribution Width 14.8 % (11.0-16.0); White Blood Count 6.2 X10*3/uL (4.8-10.8)
[2024-03-02 17:22] LABS: Eosinophils Absolute Auto 0.2 X10*3/uL (0.0-0.4); Imm Gran Abs Auto 0.02 X10*3/uL (0.00-0.03); Lymphocytes Absolute Auto 0.8 X10*3/uL (1.2-4.9); Monocytes Absolute Auto 0.7 X10*3/uL (0.1-1.2); Neutrophils Absolute Auto 4.4 x10*3/uL (2.0-8.3)
[2024-03-02 17:45] LABS: INTERNATIONAL NORM RATIO 0.9 (0.9-1.1); Partial Thromboplastin Time 27.8 SEC (26.0-36.8)
[2024-03-02 17:48] LABS: Alanine Aminotransferase 30 U/L (0-40); Albumin Level 4.4 g/dL (3.5-5.0); Alkaline Phosphatase 61 U/L (39-117); Anion Gap 15 (12-20); Aspartate Amino Transferase 32 U/L (5-37); Bilirubin Total 0.7 mg/dL (0.0-1.0); Blood Urea Nitrogen 12 mg/dL (9-16); Calcium 9.9 mg/dL (8.4-10.2); Carbon Dioxide 29 mmol/L (22-29); Chloride 105 mmol/L (96-108); Creatinine Clr Calc Pharmacy 87.5; Estimated Glomerular Filt Rate > 60; Glucose Random 90 mg/dL (60-115); Lipase 29 U/L (8-78); Potassium 3.1 mmol/L (3.3-5.1); Sodium 146 mmol/L (135-145); Total Protein 7.3 g/dL (6.5-8.0)
[2024-03-02] MEDS: iohexoL 350 MG/ML 100 ML INFUS..BTL IV (18:22)
[2024-03-02] MEDS: Potassium Chloride Packet 20 MEQ PACKET 40 MEQ PO (20:21)
[2024-03-02 20:22] VITALS: BP 173/90; PULSE 78; RESP 19; O2SAT 95
[2024-03-02 21:57] VITALS: BP 173/90; PULSE 78; RESP 17; TEMP 36.6; O2SAT 95
== END 2024-03-02 21:58 | disposition home or self-care (01) ==
PROVIDERS: Physician Assistant; Emergency Provider Emergency Medicine; PCP Internal Medicine
DX: H34.9 Unspecified retinal vascular occlusion (principal); I10 Essential (primary) hypertension; H53.8 Other visual disturbances; E78.5 Hyperlipidemia, unspecified
CPT/HCPCS: 36415; 70496; 70498; 80053; 83690; 85025; 85610; 85730; 93005; 99283; 99285; Q9967

== ENCOUNTER → 2024-03-02 16:39 | Outpatient (BNV) | payer MEDICARE, SELFPAY | PROVIDERS: Emergency Provider Emergency Medicine; PCP Internal Medicine; Visit Provider Internal Medicine Cardiovascular Disease | DX: R94.31 Abnormal electrocardiogram [ECG] [EKG] (principal) | CPT/HCPCS: 93010 ==

== ENCOUNTER 2024-03-16 13:00 | Outpatient (AMB) | payer MEDICARE, SELFPAY ==
--- NOTE | 2024-03-16 13:05 | A.OFFVIS_ITS ---
Vital Signs 03/16/24 13:06 Height 6 ft Weight 221 lb 5.506 oz BMI 30.0 BP 149/77 H Blood Pressure Location Lt brachial Position Sitting Pulse 67 Intake Visit Reasons: Follow up IBS Intake Note: Patient in office today in follow up of IBS. CC:Patient states he feels about the same from his stomach and having diarrhea. He also states that for about 3 weeks he has been having a low grade fever at night. He seen in the ER on 03/02/24 w/ c/o left eye visual loss. He was diagnosed with acute retinal artery occlusion, and uncontrolled? hypertension. 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 Accompanied by: Self / Same As Patient Allergies meperidine [Demerol] Allergy (Unknown, Verified 03/16/24 13:16) Unknown nitroglycerin [NITROGLYCERIN] Allergy (Unknown, Verified 03/16/24 13:16) HYPOTENSION, no reactions were documented HPI HPI Follow up IBS: Details: Assessment & Plan (1) Small intestinal bacterial overgrowth (SIBO), hydrogen subtype: Code(s): K63.8211 - Small intestinal bacterial overgrowth, hydrogen-subtype (2) Irritable bowel syndrome with diarrhea: Code(s): K58.0 - Irritable bowel syndrome with diarrhea Plan Overall, he is really uncertain whether the Bactrim helped or not the diarrhea. Certainly it to do not make it worse. At this point he would like to self advocate with his insurance company and see if he can get them to pay for Viberzi and or Xifaxan. Obviously this is fine. Today he has failed Carafate, cholestyramine, Imodium, Creon, a trial of Bactrim as an antibiotic (Flagyl can not be used because he enjoys scotch at night) and his workup has been negative for any reversible pathology other than irritable bowel syndrome. At this point his follow-up will be determined depending on his success with the insurance carrier. Medications: New eluxadoline (Viberzi) must administer with a meal/food 75 mg PO BID 60 tabs 5RF K58.0 - Irritable bowel syndrome with diarrhea Discontinued rifaximin (Xifaxan) Discontinued Reason: Insurance Denied 550 mg PO BID 14 days 28 tabs 0RF K58.0 - Irritable bowel syndrome with diarrhea sulfamethoxazole-trimethoprim 800-160 mg (Bactrim DS) Discontinued Reason: Patient Completed Course 1 tab PO BID 14 days 28 tabs 0RF K58.0 - Irritable bowel syndrome with diarrhea, K63.8211 - Small intestinal bacterial overgrowth, hydrogen-subtype On Hold [id number] 36,000-114,000- 180,000 unit (Creon) Hold Comment: did not work 2 caps PO BID 120 caps 6RF K58.0 - Irritable bowel syndrome with diarrhea CORRESPONDENCE On 03/08/24 @ 11:24 Tracey Jackson Wrote To Erik Jung Good morning, I just called you and left a voicemail informing you about follow up visit scheduled with Roxy Rocha for next week 03/16/24 @ 1:15 PM. Also, Roxy ordered some additional labs for you to have done if possible before your appointment. You will need to go to the hospital lab to obtain specimen container for stool test. If you have any questions or if the appointment time and date does not work for you, please feel free to reach out. Thank you, SHARA Jose On 03/04/24 @ 11:26 Erik Jung (Regarding Self / Same As Patient) Wrote To AjJanuary Erik had a couple of weeks ago food poisoning from eating raw oysters. It was a very nasty reaction that lasted all night vomiting but he couldn't eat much of anything for a week. Since then he has had issues with eating and will have a semi good day then a bad one with once he's eaten dinner he feels sick all night. last weekend while vomiting he had a mini stroke and a blood clot went to his eye and has caused last of vision in his left eye. there may be some residual bacteria or germ that Erik has from the food poisoning and now he is concerned about ever feeling like throwing up and having some really bad issues. I think he needs to be seen and not sure how you test for such things. but needs to have something done. We went through [place] [facility] as well as eye specialists but blood work was done. On 03/08/24 @ 09:34 Roxy Rocha Wrote To Roxy Rocha (2) V let us get him in to see me. In the meantime is he having any diarrhea? Usually we test for these things via stool samples so he has not had this done I will order it and you can try to do it before you get in to see me so that we can move him along more quickly. On 03/08/24 @ 08:58 Chika Lenz Wrote To Roxy Rocha patient was seen at ED due to these s/s. patient was advised to follow up with PCP. However, is there anything you want to do on your end such as stool sample, etc? Laboratory Tests 03/02/24 17:10 WBC 6.2 Hgb 15.4 Hct 43.9 Plt Count 232 Sodium 146 H Potassium 3.1 L Estimated GFR > 60 Total Bilirubin 0.7 AST 32 ALT 30 Alkaline Phosphatase 61 I also ordered stool samples, stool calprotectin, and C diff study but it does not appear these have been done TODAY'S VISIT He had sudden onset of N/V/D on a , with low grade fevers (he had unexplained low grade fevers 10 years ago as well) - But then he had a small stroke and lost vision in his right eye - so the N/V/D was over shadowed. He is having less diarrhea, not qod but the Viberzi is still not controlling to his satisfaction. He is only at 75mg bid and we will increase it. He says the imodium works as well as anything. Apparently the nausea and vomiting has resolved. He is will soon be due for colonoscopy 07/2023 since he had 1 in 2022 with large polyps and have 1-2 year repeat. Since this was not even a year ago he has not ready to discuss this yet. ROV 6 weeks. [facility] Medical History (Updated 03/16/24 @ 13:21 by LARRY Anaya) Physical exam Physical exam Pre-op examination Hyperlipidemia CAD (coronary artery disease) Hypertension Surgical History Hx of cardiac catheterization Hx of colonoscopy History of esophagogastroduodenoscopy (EGD) History of surgery H/O rectal polypectomy Family History Father No problems noted. Mother Heart disease Brother CAD (coronary artery disease) Paternal Uncle Myocardial infarction Social History Housing: House Alcohol intake: current Alcohol intake frequency: a few times a week Alcohol type: hard liquor Patient Tobacco Use Status: Former Tobacco user e-Cigarette/Vaping Use: Never Used Second Hand Smoke Exposure: No service: No Current occupational status: retired Cognitive needs: No Hearing needs: No Vision needs: No Review of Systems Const Denies fatigue, Denies fever(s), Denies night sweats, Denies poor appetite and Denies weight loss Eyes Reports loss of vision ENT Reports Normal hearing present, Denies dental pain, Denies dysphagia, Denies hearing loss, Denies mouth pain, Denies odynophagia, Denies throat swelling, Denies tongue swelling and Reports other (Dentition adequate) Card Reports no additional complaints Resp Reports no additional complaints GI Details: Denies abdominal pain, Denies melena, Denies bloating, Denies hematochezia, Denies constipation, Denies GI cramping, Denies dysphagia, Denies excessive flatus, Denies early satiety, Denies heartburn, Reports diarrhea, Reports nausea, Denies odynophagia, Reports vomiting and Denies hematemesis Skin/Breast Denies pruritus, Denies lesions, Denies rash and Denies jaundice Neuro Reports Normal hearing present, Denies Abnormal speech present and Reports loss of vision Endo Denies fatigue Aller/Immun Denies throat swelling and Denies tongue swelling Physical Exam Vital Signs: Last Vital Signs Pulse 67 03/16/24 13:06 BP 149/77 H 03/16/24 13:06 BMI result Body Mass Index 30.0 Const General: cooperative, no acute distress, well developed and well groomed Nutritional Appearance: well nourished and obese Orientation/consciousness: oriented to person, oriented to place and oriented to time Limitations: No language barrier HEENT Head: Yes normocephalic and Yes atraumatic Eyes General: appearance normal, both eyes and all related structures Pupils: Equal, round and reactive pupils present Neck Neck: Yes normal visual inspection and Yes no lymphadenopathy Thyroid: Thyroid normal Resp Effort & Inspection: normal respiratory effort and able to speak in complete sentences Auscultation: clear to auscultation bilaterally Cardio Rate: regular rate Rhythm: regular rhythm Heart sounds: Normal, physiologic split S2 sound present Peripheral pulses: radial pulses present and posterior tibial pulses present GI Inspection: No distended, No Abdominal panniculus present and Yes obesity Palpation (GI): Soft to palpation, nontender, no guarding, not rigid and No hepatosplenomegaly present Percussion: Yes normal to percussion Auscultation: normal bowel sounds Rectal Exam - Male: Yes deferred Skin General skin exam: no rashes or lesions noted, turgor normal, skin not dry, no jaundice, No spider nevi and no striae Rashes: no rashes Nails: normal Neuro General: oriented to person, oriented to place and oriented to time Cranial nerves: Yes Equal, round and reactive pupils present and Yes Normal hearing present Speech: No Abnormal speech present Extrem General: Yes normal to inspection, No clubbing, No cyanosis and No edema Psych Appearance: grossly normal and well kempt Mental Status: mental status grossly normal Speech and movement: Normal speech and movement present Affect: normal affect Attitude: cooperative Thought process: Normal thought process present and not confabulating Thought content: Normal thought content present Insight: Limited insight present (Psych) Judgement: Limited judgement present (Psych) Results Reviewed Results Reviewed: Laboratory Tests 03/02/24 17:10 WBC 6.2 Hgb 15.4 Hct 43.9 Plt Count 232 Sodium 146 H Potassium 3.1 L Estimated GFR > 60 Total Bilirubin 0.7 AST 32 ALT 30 Alkaline Phosphatase 61 I also ordered stool samples, stool calprotectin, and C diff study but it does not appear these have been done Assessment & Plan Assessment & Plan (1) Irritable bowel syndrome with diarrhea: Code(s): K58.0 - Irritable bowel syndrome with diarrhea Category: Medical (2) Diarrhea: Code(s): R19.7 - Diarrhea, unspecified Category: Medical (3) Tubulovillous adenoma of colon: Comment: 07/2023 scope repeat in 1 year Code(s): D12.6 - Benign neoplasm of colon, unspecified Category: Medical (4) Small intestinal bacterial overgrowth (SIBO), hydrogen subtype: Code(s): K63.8211 - Small intestinal bacterial overgrowth, hydrogen-subtype Category: Medical Plan He had sudden onset of N/V/D on a , with low grade fevers (he had unexplained low grade fevers 10 years ago as well) - But then he had a small stroke and lost vision in his right eye - so the N/V/D was over shadowed. He is having less diarrhea, not qod but the Viberzi is still not controlling to his satisfaction. He is only at 75mg bid and we will increase it. He says the imodium works as well as anything. Apparently the nausea and vomiting has resolved. He is will soon be due for colonoscopy 07/2023 since he had 1 in 2022 with large polyps and have 1-2 year repeat. Since this was not even a year ago he has not ready to discuss this yet. ROV 6 weeks. Medications: New eluxadoline (Viberzi) must administer with a meal/food 100 mg PO BID 60 tabs 5RF K58.0 - Irritable bowel syndrome with diarrhea On Hold eluxadoline (Viberzi) Hold Comment: Doctor's Order 75 mg PO BID 60 tabs 5RF K58.0 - Irritable bowel syndrome with diarrhea Coding Level of Care Code Est Pt Level 3 (31741) Diagnoses Irritable bowel syndrome with diarrhea K58.0 Diarrhea R19.7 Tubulovillous adenoma of colon D12.6 Small intestinal bacterial overgrowth (SIBO), hydrogen subtype K63.8211
[2024-03-16 13:06] VITALS: BP 149/77; PULSE 67
== END 2024-03-16 13:39 | disposition home or self-care (01) ==
PROVIDERS: PCP Internal Medicine; Visit Provider Nurse Practitioner
DX: K58.0 Irritable bowel syndrome with diarrhea (principal); R19.7 Diarrhea, unspecified; D12.6 Benign neoplasm of colon, unspecified; K63.8211 Small intestinal bacterial overgrowth, hydrogen-subtype
CPT/HCPCS: 99213

== ENCOUNTER → 2024-03-16 13:00 | Outpatient (BNVA) | payer MEDICARE, SELFPAY | PROVIDERS: PCP Internal Medicine; Visit Provider Nurse Practitioner | DX: K58.0 Irritable bowel syndrome with diarrhea (principal); K63.8211 Small intestinal bacterial overgrowth, hydrogen-subtype; R19.7 Diarrhea, unspecified; D12.6 Benign neoplasm of colon, unspecified | CPT/HCPCS: 99212 ==

== ENCOUNTER 2024-03-31 11:08 | Outpatient (AMB) | payer MEDICARE, SELFPAY ==
--- NOTE | 2024-03-31 11:26 | MHC.OFFVIS ---
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 Allergies meperidine [Demerol] Allergy (Unknown, Verified 03/16/24 13:16) Unknown nitroglycerin [NITROGLYCERIN] Allergy (Unknown, Verified 03/16/24 13:16) HYPOTENSION, no reactions were documented Medication List - Last Reconciled 03/31/24 by Rene Diaz MD amlodipine 10 mg PO DAILY aspirin 325 mg PO DAILY carvedilol 25 mg PO BID eluxadoline (Viberzi) 100 mg PO BID gabapentin 300 mg PO DAILY hydrochlorothiazide 25 mg PO DAILY hydroxyzine HCl 50 mg PO BEDTIME loperamide (Imodium A-D) 2 mg PO Q6H PRN pramipexole 0.5 mg PO BID pregabalin 75 mg PO BID HPI Comments Details: Erik comes for follow-up after recent presentation to the emergency room with vision loss in the left eye and subsequently noted to have occlusion of the left retinal artery. Subsequently had a CTA which showed atherosclerotic disease in the carotid arteries in the arch. He was then treated with higher dose of aspirin. No recent lipid panel and he has currently not on any statins for unclear reasons. He denies any prolonged palpitation irregular heartbeat. Although he is at risk for atrial fibrillation given his risk factors and age. No echocardiogram has been performed. Otherwise he denies any exertional chest pain. Continues to have limitations related to peripheral vision loss on the left [facility] Medical History Physical exam Physical exam Pre-op examination Hyperlipidemia CAD (coronary artery disease) Hypertension Surgical History Hx of cardiac catheterization Hx of colonoscopy History of esophagogastroduodenoscopy (EGD) History of surgery H/O rectal polypectomy Family History Father No problems noted. Mother Heart disease Brother CAD (coronary artery disease) Paternal Uncle Myocardial infarction Social History Housing: House Alcohol intake: current Alcohol intake frequency: a few times a week Alcohol type: hard liquor Patient Tobacco Use Status: Former Tobacco user e-Cigarette/Vaping Use: Never Used Second Hand Smoke Exposure: No service: No Current occupational status: retired Cognitive needs: No Hearing needs: No Vision needs: No Review of Systems Const Denies chills, Denies fatigue, Denies fever(s), Denies frequent falls, Denies weakness, Denies weight gain and Denies weight loss Eyes Reports loss of vision ENT Denies dizziness Card Denies chest pain, Denies leg edema, Denies lightheadedness, Denies palpitations, Denies dyspnea, Denies dyspnea on exertion, Denies orthopnea and Denies other (loss of consciousness) Resp Denies cough, Denies dyspnea and Denies dyspnea on exertion GI Denies hematochezia and Denies change in stool character Musc Denies abnormal gait, Denies muscle weakness, Denies numbness, Denies radiating pain into limb and Denies tingling Neuro Denies abnormal gait, Denies dizziness, Denies frequent falls, Reports loss of vision, Denies numbness, Denies tingling and Denies weakness Endo Denies fatigue and Denies palpitations Physical Exam Vital Signs: Last Vital Signs Pulse 70 03/31/24 11:27 BP 120/82 03/31/24 11:27 BMI result Body Mass Index 29.9 Const General: cooperative, comfortable, no acute distress, alert and awake Nutritional Appearance: overweight Orientation/consciousness: patient oriented x3 Neck Neck: Yes trachea midline, Yes supple and Yes no JVD Resp Effort & Inspection: normal respiratory effort Auscultation: clear to auscultation bilaterally Cardio Jugular venous distension: no JVD Palpation: normal PMI Rate: regular rate Rhythm: regular rhythm Heart sounds: S1 normal heart sound present, S2 normal heart sound present, no click, no gallops, no murmurs, no rubs and Other heart sounds present ( Soft S4 present) Skin General skin exam: no rashes or lesions noted Neuro General: patient oriented x3 and no focal motor deficits Extrem General: No clubbing, No cyanosis and Yes edema ( mild) Assessment & Plan Assessment & Plan (1) Retinal artery occlusion: Code(s): H34.9 - Unspecified retinal vascular occlusion Category: Medical Plan: Patient with new retinal artery occlusion with both atherosclerosis in the aorta as well as carotid atherosclerosis. No significant obstructive lesion in the carotid artery. Aspirin by itself is not enough therapy. He should be on at least dual antiplatelet therapy given that he probably has unstable prior morphology. This would be at least for 1 year. Also cardiac embolic source needs to be ruled out. Will obtain an echocardiogram also suggest an implantable loop recorder to evaluate for atrial fibrillation as this would change therapy. This was discussed with him. Needs aggressive risk factor modification. No recent lipid panel. Should be on high-intensity statin therapy with target goal LDL less than 70 mg/dL. (2) CAD (coronary artery disease): Comment: Nonobstructive by cardiac catheterization Code(s): I25.10 - Atherosclerotic heart disease of [place] coronary artery without angina pectoris Category: Medical Plan: CAD nonobstructive by cardiac catheterization. No current symptoms. Continue antiplatelet therapy. Continue aggressive blood pressure control as well as should be on aggressive lipid modification. (3) Hypertension: Code(s): I10 - Essential (primary) hypertension Category: Medical Plan: Hypertension which is currently well optimized advised to monitor blood pressure at home maintain a log. Goal blood pressure less than 130/84. Low-salt diet was discussed. Continue current therapy for the same. Will follow up in the clinic in 1 week after implantable loop recorder placement Orders: Orders CA echo transthoracic complete Today H34.9 - Unspecified retinal vascular occlusion Lipid Panel 3 Months H34.9 - Unspecified retinal vascular occlusion, I25.10 - Atherosclerotic heart disease of [place] coronary artery without angina pectoris Medications: New aspirin (Ecotrin Low Strength) 81 mg PO DAILY 30 tabs 5RF clopidogrel (Plavix) 75 mg PO DAILY 30 tabs 5RF atorvastatin (Lipitor) 40 mg PO DAILY 30 tabs 5RF Discontinued aspirin Discontinued Reason: Doctor's Order 325 mg PO DAILY 30 tabs 1RF Coding Level of Care Code Est Pt Level 4 (55879) Diagnoses Retinal artery occlusion H34.9 CAD (coronary artery disease) I25.10 Hypertension I10
[2024-03-31 11:27] VITALS: BP 120/82; PULSE 70; BMI 29.9
== END 2024-03-31 12:34 | disposition home or self-care (01) ==
PROVIDERS: PCP Internal Medicine; Visit Provider Internal Medicine Cardiovascular Disease
DX: H34.9 Unspecified retinal vascular occlusion (principal); I25.10 Atherosclerotic heart disease of native coronary artery without angina pectoris; I10 Essential (primary) hypertension
CPT/HCPCS: 99214

== ENCOUNTER → 2024-03-31 11:08 | Outpatient (BNVA) | payer MEDICARE, SELFPAY | PROVIDERS: PCP Internal Medicine; Visit Provider Internal Medicine Cardiovascular Disease | DX: I25.10 Atherosclerotic heart disease of native coronary artery without angina pectoris (principal); I10 Essential (primary) hypertension; H34.9 Unspecified retinal vascular occlusion | CPT/HCPCS: 99212 ==

== ENCOUNTER → 2024-04-06 13:00 | Outpatient (BNV) | payer MEDICARE, SELFPAY | PROVIDERS: PCP Internal Medicine; Visit Provider Internal Medicine Cardiovascular Disease | DX: I49.9 Cardiac arrhythmia, unspecified (principal); Z95.818 Presence of other cardiac implants and grafts | CPT/HCPCS: 33285 ==

== ENCOUNTER 2024-04-07 08:04 | Outpatient (REF) | payer MEDICARE, SELFPAY ==
[2024-04-06 13:15] VITALS: BP 184/91; PULSE 55; RESP 19; TEMP 36.8; O2SAT 95; BMI 29.0
--- NOTE | 2024-04-06 13:52 | P.OP_ITS ---
Operative Note Operative Note Date of Service: 04/06/24 Narrative: After obtaining full informed consent patient was brought to the minor surgery room. Patient was then laid on the operating table in supine position. His precordial area was then prepped and draped in sterile fashion. Patient was then given 2% lidocaine with epinephrine intradermally and subcutaneously in the 4th intercostal space. A small incision was then made. A Radio Rebel implantable loop recorder with serial [id number] was implanted in the subcutaneous space using modified Seldinger technique. Measured R-waves at 0.33 mV. The wound was then closed with the Steri-Strips and pressure dressing applied. Patient tolerated the procedure well. Blood loss was minimal. Follow up in 7 days for wound check with usual postoperative wound care instructions provided
== END 2024-04-07 08:05 | disposition home or self-care (01) ==
LOC: HO.MS 08:04
PROVIDERS: PCP Internal Medicine; Visit Provider Internal Medicine Cardiovascular Disease
PROC: (CPT 33285; principal; 2024-04-06 13:00)
DX: I25.10 Atherosclerotic heart disease of native coronary artery without angina pectoris (principal)
CPT/HCPCS: 33285; C1764

== ENCOUNTER 2024-04-13 12:47 | Outpatient (AMB) | payer MEDICARE, SELFPAY ==
[2024-04-13 12:51] VITALS: BP 118/56; PULSE 66; BMI 30.1
--- NOTE | 2024-04-13 12:51 | MHC.OFFVIS ---
Vital Signs 04/13/24 12:51 Height 6 ft Weight 221 lb 12.56 oz BMI 30.1 BP 118/56 L Blood Pressure Location Lt brachial Position Sitting Pulse 66 Pulse Source Pulse Oximeter Intake Visit Reasons: New ILR wound check Intake Note: ILR/wound check. Pt feeling okay Cupola Charger Required: No Accompanied by: Self / Same As Patient Allergies meperidine [Demerol] Allergy (Unknown, Verified 04/13/24 12:59) Unknown nitroglycerin [NITROGLYCERIN] Allergy (Unknown, Verified 04/13/24 12:59) HYPOTENSION, no reactions were documented HPI Comments Details: 74-year-old male presents today for a follow-up after ILR placement. He had the ILR placed on 04/06/[address] Diaz. Patient reports he is doing well. Pain at the site has improved since implant. He denies odor, drainage, fever, chills. or erhythma. [facility] Medical History Implantable loop recorder present Physical exam Physical exam Pre-op examination Hyperlipidemia CAD (coronary artery disease) Hypertension Surgical History Hx of cardiac catheterization Hx of colonoscopy History of esophagogastroduodenoscopy (EGD) History of surgery H/O rectal polypectomy Family History Father No problems noted. Mother Heart disease Brother CAD (coronary artery disease) Paternal Uncle Myocardial infarction Social History Housing: House Alcohol intake: current Alcohol intake frequency: a few times a week Alcohol type: hard liquor Patient Tobacco Use Status: Former Tobacco user e-Cigarette/Vaping Use: Never Used Second Hand Smoke Exposure: No service: No Current occupational status: retired Cognitive needs: No Hearing needs: No Vision needs: No Review of Systems Const Denies chills, Denies fatigue, Denies fever(s), Denies weight gain and Denies weight loss Card Denies chest pain, Denies leg edema, Denies lightheadedness, Denies palpitations, Denies dyspnea on exertion and Denies orthopnea Resp Denies cough and Denies dyspnea on exertion GI Reports melena, Denies hematochezia and Denies change in stool character Musc Denies muscle weakness and Denies radiating pain into limb Endo Denies fatigue and Denies palpitations Assessment & Plan Assessment & Plan (1) Implantable loop recorder present: Comment: [employer]. Placed by Dr. Diaz on 04/04/2024. serial number [id number] Code(s): Z95.818 - Presence of other cardiac implants and grafts Category: Medical Plan ILR placement to assess for arrhythmias such as atrial fibrillation which could be the reason for vision lost / retinal vascular occlusion. Report any expulsion of the device, odor, fever, redness. Signs of infection reviewed. Continue medications. Connected to remote monitoring. Coding Level of Care Code Est Pt Level 3 (46695) Diagnoses Implantable loop recorder present Z95.818
== END 2024-04-13 13:10 | disposition home or self-care (01) ==
PROVIDERS: PCP Internal Medicine; Visit Provider Nurse Practitioner
DX: Z95.818 Presence of other cardiac implants and grafts (principal)
CPT/HCPCS: 99213

== ENCOUNTER → 2024-04-13 12:47 | Outpatient (BNVA) | payer MEDICARE, SELFPAY | PROVIDERS: PCP Internal Medicine; Visit Provider Nurse Practitioner | DX: Z48.812 Encounter for surgical aftercare following surgery on the circulatory system (principal); Z95.818 Presence of other cardiac implants and grafts | CPT/HCPCS: 99212 ==

== ENCOUNTER → 2024-04-19 08:54 | Outpatient (REF) | payer MEDICARE, SELFPAY ==
--- NOTE | 2024-04-19 08:59 | CA_ITS ---
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 The visually estimated ejection fraction is between 55-60%. - The basal inferior, mid inferior, and apical septum segments are hypokinetic. - The basal inferolateral segment is akinetic. - No obvious valvular pathology seen on this study. - There is mild dilatation of the sinuses of Valsalva measuring 4.27 cm and moderate dilatation of the ascending aorta measuring 4.50 cm. Findings Left Ventricle Normal left ventricular cavity size. There is mildly increased left ventricular wall thickness. The left ventricular systolic function is normal. The visually estimated ejection fraction is between 55-60%. There is evidence of regional wall motion abnormalities. Evidence suggests grade I (mild) diastolic dysfunction. Wall Motion Rest Echo Findings The basal inferior, mid inferior, and apical septum segments are hypokinetic. The basal inferolateral segment is akinetic. Right Ventricle Normal right ventricular cavity size and systolic function. Atria Both atria are normal in size. Aortic Valve There is a normal trileaflet aortic valve. There is no aortic valve stenosis. There is no aortic valve regurgitation. Mitral Valve The mitral valve appears normal. There is trace mitral valve regurgitation. There is no mitral valve stenosis. Pulmonic Valve The pulmonic valve is likely normal. Tricuspid Valve There is trace tricuspid valve regurgitation. There is no evidence of pulmonary hypertension. Great Vessels There is mild dilatation of the sinuses of Valsalva measuring 4.27 cm and moderate dilatation of the ascending aorta measuring 4.50 cm. Venous The inferior vena cava is normal in size and collapses greater than 50% with inspiration. Pericardium/Pleural There is no evidence of pericardial effusion. Prior Study Comparison Changes noted compared to prior study dated: 03/14/2021. Wall motion appears similar in prior images. See comment on aorta. Recommendations, Care & Conclusions No obvious valvular pathology seen on this study. Measurements 2D Linear Measurements IVSd: 1.08 0.6-0.9/0.6-1.0 cm LVIDd: 6.19 3.9-5.3/4.2-5.9 cm LVIDd Index: 2.84 2.4-3.2/2.2-3.1 cm/m2 LVIDs: 4.60 2.0-3.6 cm LVPWd: 1.16 0.7-1.1 cm LA Diam: 4.50 2.7-3.8/3.0-4.0 cm LAIDs Index: 2.06 1.5-2.3 cm/m2 LV Mass: 376.38 67-162/88-224 g LV Mass Index: 172.65 43-95/49-115 g/m2 LVOT Diam: 2.50 3.0+(-)1.3 cm 2D Systolic Function EF 4C: 56.90 >55% EF 2C: 61.90 >55% EF BiP: 58.20 >55% Mitral Valve MV Pk E: 0.60 MV PK A: 0.73 MV Decel Time: 252.00 E/A: 0.80 E'Lateral: 6.31 E'Medial: 4.13 E/E' Med: 14.50 E/E' Lat: 9.50 PHT: 74.00 MVA PHT: 2.97 Decel Jefferson: 2.38 Aortic Valve AoV Pk Rojas: 1.33 AoV Mn Rojas: 0.89 AoV VTI: 0.29 AoV Pk Grad: 7.00 Aov Mn Grad: 4.00 PARSHANT Cont.VTI: 4.06 LVOT LVOT Pk Rojas: 1.14 LVOT Mn Rojas: 0.68 LVOT VTI: 0.24 LVOT Pk Grad: 5.00 LVOT Mn Grad: 2.00 LVOT Diam: 2.50 LVOT Area: 4.91 Diastolic Function MV Pk E: 0.60 MV Pk A: 0.73 E/A: 0.80 E'Medial: 4.13 E/E' Med: 14.50 E' Laterial: 6.31 E/E' Lat: 9.50 Right Ventricle TAPSE (mm): 19.90 TVS' Rojas: 13.70 Tricuspid Valve TR Pk Rojas: 2.61 TR Pk Grad: 27.00 RA Press: 8.00 RVSP: 35.00 Great Vessels Aorta Sinus of Valsalva: 4.27 2.0-3.[address] Ridge: 3.17 1.7-3.4 cm Ao Asc: 4.50 2.1-3.4 cm Updated in Other Vendor System with Status of Final Ravinder Cornell MD electronically signed on 04/20/2024 8:59:55 AM with status of Final
== END ==
LOC: HO.CARD 08:54
PROVIDERS: PCP Internal Medicine; Visit Provider Internal Medicine Cardiovascular Disease
DX: H34.9 Unspecified retinal vascular occlusion (principal)
CPT/HCPCS: 93306

== ENCOUNTER → 2024-04-19 08:59 | Outpatient (BNV) | payer MEDICARE, SELFPAY | PROVIDERS: PCP Internal Medicine; Visit Provider Internal Medicine | DX: I51.89 Other ill-defined heart diseases (principal) | CPT/HCPCS: 93306 ==

== ENCOUNTER → 2024-04-29 12:30 | Outpatient (BNVA) | payer MEDICARE, SELFPAY | PROVIDERS: PCP Internal Medicine; Visit Provider Nurse Practitioner | DX: K58.0 Irritable bowel syndrome with diarrhea (principal); D12.6 Benign neoplasm of colon, unspecified; K63.8211 Small intestinal bacterial overgrowth, hydrogen-subtype | CPT/HCPCS: 99212 ==

== ENCOUNTER → 2024-05-07 23:59 | Outpatient (BNV) | payer MEDICARE, SELFPAY ==
--- NOTE | 2024-06-02 13:36 | MHC.OFFVIS ---
Intake Visit Reasons: Remote ILR check- [employer] Allergies meperidine [Demerol] Allergy (Unknown, Verified 04/29/24 12:45) Unknown nitroglycerin [NITROGLYCERIN] Allergy (Unknown, Verified 04/29/24 12:45) HYPOTENSION, no reactions were documented [facility] Medical History Implantable loop recorder present Physical exam Physical exam Pre-op examination Hyperlipidemia CAD (coronary artery disease) Hypertension Surgical History Hx of cardiac catheterization Hx of colonoscopy History of esophagogastroduodenoscopy (EGD) History of surgery H/O rectal polypectomy Family History Father No problems noted. Mother Heart disease Brother CAD (coronary artery disease) Paternal Uncle Myocardial infarction Social History Housing: House Alcohol intake: current Alcohol intake frequency: a few times a week Alcohol type: hard liquor Patient Tobacco Use Status: Former Tobacco user e-Cigarette/Vaping Use: Never Used Second Hand Smoke Exposure: No service: No Current occupational status: retired Cognitive needs: No Hearing needs: No Vision needs: No Office Procedures Cardiac Device Check Cardiac Device Check Details: Remote implantable loop recorder report generated 05/07/2024. I was requested to read this report today. Frequent PVCs noted mostly isolated with total burden of 3.9%. No episodes of atrial fibrillation or pauses noted. [id number]-[id number] Cardiac Interrogation, subcut cardiac rhythm monitor Procedure code (CPT) selection complete Assessment & Plan Assessment & Plan (1) Implantable loop recorder present: Comment: [employer]. Placed by Dr. Diaz on 04/04/2024. serial number [id number] Code(s): Z95.818 - Presence of other cardiac implants and grafts Category: Medical Plan: See above Coding Level of Care Code Procedure Only Diagnoses Implantable loop recorder present Z95.818 CPT Codes Cardiac Device Check - Cardiac Device 16: [id number] Cardiac Interrogation, subcut cardiac rhythm monitor ([id number])
== END ==
PROVIDERS: PCP Internal Medicine; Visit Provider Internal Medicine Cardiovascular Disease
DX: I49.3 Ventricular premature depolarization (principal); Z95.818 Presence of other cardiac implants and grafts
CPT/HCPCS: 93298

== ENCOUNTER 2024-05-10 09:37 | Outpatient (AMB) | payer MEDICARE, SELFPAY ==
[2024-05-10 09:45] VITALS: BP 150/75; PULSE 67; BMI 30.3
--- NOTE | 2024-05-10 09:45 | MHC.OFFVIS ---
Vital Signs 05/10/24 09:45 Height 6 ft Weight 223 lb 1.725 oz BMI 30.3 BP 150/75 H Blood Pressure Location Rt brachial Position Sitting Pulse 67 Intake Visit Reasons: Follow up Intake Note: Patient in office today in follow up of IBS with diarrhea. CC: Patient reports doing well with Viberzi and Imodium. Denies other GI symptoms today. Accompanied by: Self / Same As Patient Allergies meperidine [Demerol] Allergy (Unknown, Verified 04/29/24 12:45) Unknown nitroglycerin [NITROGLYCERIN] Allergy (Unknown, Verified 04/29/24 12:45) HYPOTENSION, no reactions were documented HPI HPI Follow up : Details: He is will soon be due for colonoscopy 07/2023 since he had 1 in 2022 with large polyps and have 1-2 year repeat. Since this was not even a year ago he has not ready to discuss this yet At the last visit we increased his Viberzi to see if we can better control his diarrhea. TODAY'S VISIT REFILL VIBERZI He is doing better, he is now having more solid BM's - at times too solid. We discuss fiber such as Benefiber or Citrtucel for this. This is the 1st we have had any success with his diarrhea and he is happy about. He even ran out of it 3 weeks ago and still has had some persisting bowel control. Return office visit in 6 months. [facility] Medical History Implantable loop recorder present Physical exam Physical exam Pre-op examination Hyperlipidemia CAD (coronary artery disease) Hypertension Surgical History Hx of cardiac catheterization Hx of colonoscopy History of esophagogastroduodenoscopy (EGD) History of surgery H/O rectal polypectomy Family History Father No problems noted. Mother Heart disease Brother CAD (coronary artery disease) Paternal Uncle Myocardial infarction Social History Housing: House Alcohol intake: current Alcohol intake frequency: a few times a week Alcohol type: hard liquor Patient Tobacco Use Status: Former Tobacco user e-Cigarette/Vaping Use: Never Used Second Hand Smoke Exposure: No service: No Current occupational status: retired Cognitive needs: No Hearing needs: No Vision needs: No Review of Systems Const Denies fatigue, Denies fever(s), Denies night sweats, Denies poor appetite and Denies weight loss ENT Reports Normal hearing present, Denies dental pain, Denies dysphagia, Denies hearing loss, Denies mouth pain, Denies odynophagia, Denies throat swelling, Denies tongue swelling and Reports other (Dentition adequate) Card Reports no additional complaints Resp Reports no additional complaints GI Details: Denies abdominal pain, Denies melena, Denies bloating, Denies hematochezia, Denies constipation, Denies GI cramping, Denies dysphagia, Denies excessive flatus, Denies early satiety, Denies heartburn, Reports diarrhea, Denies nausea, Denies odynophagia, Denies vomiting and Denies hematemesis Skin/Breast Denies pruritus, Denies lesions, Denies rash and Denies jaundice Neuro Reports Normal hearing present and Denies Abnormal speech present Endo Denies fatigue Aller/Immun Denies throat swelling and Denies tongue swelling Physical Exam Vital Signs: Last Vital Signs Pulse 67 05/10/24 09:45 BP 150/75 H 05/10/24 09:45 BMI result Body Mass Index 30.3 Const General: cooperative, no acute distress, well developed and well groomed Nutritional Appearance: well nourished and obese centrally obese Orientation/consciousness: oriented to person, oriented to place and oriented to time Limitations: No language barrier HEENT Head: Yes normocephalic and Yes atraumatic Eyes General: appearance normal, both eyes and all related structures Pupils: Equal, round and reactive pupils present Neck Neck: Yes normal visual inspection and Yes no lymphadenopathy Thyroid: Thyroid normal Resp Effort & Inspection: normal respiratory effort and able to speak in complete sentences Auscultation: clear to auscultation bilaterally Cardio Rate: regular rate Rhythm: regular rhythm Heart sounds: Normal, physiologic split S2 sound present Peripheral pulses: radial pulses present and posterior tibial pulses present GI Inspection: No distended, No Abdominal panniculus present and Yes obesity Palpation (GI): Soft to palpation, nontender, no guarding, not rigid and No hepatosplenomegaly present Percussion: Yes normal to percussion Auscultation: normal bowel sounds Rectal Exam - Male: Yes deferred Skin General skin exam: no rashes or lesions noted, turgor normal, skin not dry, no jaundice, No spider nevi and no striae Rashes: no rashes Nails: normal Neuro General: oriented to person, oriented to place and oriented to time Cranial nerves: Yes Equal, round and reactive pupils present and Yes Normal hearing present Speech: No Abnormal speech present Extrem General: Yes normal to inspection, No clubbing, No cyanosis and No edema Psych Appearance: grossly normal and well kempt Mental Status: mental status grossly normal Speech and movement: Normal speech and movement present Affect: normal affect Attitude: cooperative Thought process: Normal thought process present and not confabulating Thought content: Normal thought content present Insight: Fair insight present (Psych) Judgement: Fair judgement present (Psych) Assessment & Plan Assessment & Plan (1) Irritable bowel syndrome with diarrhea: Code(s): K58.0 - Irritable bowel syndrome with diarrhea Category: Medical (2) Tubular adenoma of colon: Comment: TVA 07/2023 scope repeat in 1 year Code(s): D12.6 - Benign neoplasm of colon, unspecified Category: Medical Plan REFILL VIBERZI He is doing better, he is now having more solid BM's - at times too solid. We discuss fiber such as Benefiber or Citrtucel for this. This is the 1st we have had any success with his diarrhea and he is happy about. He even ran out of it 3 weeks ago and still has had some persisting bowel control. Return office visit in 6 months. Medications: Refilled eluxadoline (Viberzi) must administer with a meal/food 100 mg PO BID 60 tabs 5RF K58.0 - Irritable bowel syndrome with diarrhea Coding Level of Care Code Est Pt Level 3 (93687) Diagnoses Irritable bowel syndrome with diarrhea K58.0 Tubular adenoma of colon D12.6
== END 2024-05-10 12:04 | disposition home or self-care (01) ==
PROVIDERS: PCP Internal Medicine; Visit Provider Nurse Practitioner
DX: K58.0 Irritable bowel syndrome with diarrhea (principal); D12.6 Benign neoplasm of colon, unspecified
CPT/HCPCS: 99213

== ENCOUNTER → 2024-05-10 09:37 | Outpatient (BNVA) | payer MEDICARE, SELFPAY | PROVIDERS: PCP Internal Medicine; Visit Provider Nurse Practitioner | DX: K58.0 Irritable bowel syndrome with diarrhea (principal); D12.6 Benign neoplasm of colon, unspecified | CPT/HCPCS: 99212 ==

== ENCOUNTER 2024-06-01 10:18 | Outpatient (REF) | payer MEDICARE, SELFPAY ==
[2024-06-01 12:41] LABS: B Type Natriuretic Peptide 52 pg/mL (<100)
[2024-06-01 12:51] LABS: Anion Gap 15 (12-20); Blood Urea Nitrogen 10 mg/dL (9-16); Calcium 9.5 mg/dL (8.4-10.2); Carbon Dioxide 29 mmol/L (22-29); Chloride 105 mmol/L (96-108); Cholesterol 145 mg/dL (<200); Estimated Glomerular Filt Rate > 60; Glucose Random 108 mg/dL (60-115); HDL Cholesterol 57 mg/dL (>40); LDL Cholesterol Calculated 61 mg/dL (<100); Potassium 3.4 mmol/L (3.3-5.1); Sodium 146 mmol/L (135-145); Triglycerides 137 mg/dL (<150)
== END 2024-06-01 10:19 | disposition home or self-care (01) ==
LOC: HO.LAB 10:18
PROVIDERS: PCP Internal Medicine; Visit Provider Internal Medicine Cardiovascular Disease
DX: I10 Essential (primary) hypertension (principal); R60.0 Localized edema; I25.10 Atherosclerotic heart disease of native coronary artery without angina pectoris; H34.9 Unspecified retinal vascular occlusion
CPT/HCPCS: 36415; 80048; 80061; 83880

== ENCOUNTER → 2024-06-05 23:59 | Outpatient (BNV) | payer MEDICARE, SELFPAY ==
--- NOTE | 2024-06-08 15:15 | MHC.OFFVIS ---
Intake Visit Reasons: Remote ILR check- [employer] Allergies meperidine [Demerol] Allergy (Unknown, Verified 04/29/24 12:45) Unknown nitroglycerin [NITROGLYCERIN] Allergy (Unknown, Verified 04/29/24 12:45) HYPOTENSION, no reactions were documented [facility] Medical History Implantable loop recorder present Physical exam Physical exam Pre-op examination Hyperlipidemia CAD (coronary artery disease) Hypertension Surgical History Hx of cardiac catheterization Hx of colonoscopy History of esophagogastroduodenoscopy (EGD) History of surgery H/O rectal polypectomy Family History Father No problems noted. Mother Heart disease Brother CAD (coronary artery disease) Paternal Uncle Myocardial infarction Social History Housing: House Alcohol intake: current Alcohol intake frequency: a few times a week Alcohol type: hard liquor Patient Tobacco Use Status: Former Tobacco user e-Cigarette/Vaping Use: Never Used Second Hand Smoke Exposure: No service: No Current occupational status: retired Cognitive needs: No Hearing needs: No Vision needs: No Office Procedures Cardiac Device Check Cardiac Device Check Details: Remote implantable loop recorder report generated 06/06/2024. No atrial fibrillation noted. Frequent PVCs noted mostly isolated total burden of 2.2% [id number] Cardiac Interrogation, subcut cardiac rhythm monitor Procedure code (CPT) selection complete Assessment & Plan Assessment & Plan (1) Implantable loop recorder present: Comment: [employer]. Placed by Dr. Diaz on 04/04/2024. serial number [id number] Code(s): Z95.818 - Presence of other cardiac implants and grafts Category: Medical Plan: See above Coding Level of Care Code Procedure Only Diagnoses Implantable loop recorder present Z95.818 CPT Codes Cardiac Device Check - Cardiac Device 16: [id number] Cardiac Interrogation, subcut cardiac rhythm monitor ([id number])
== END ==
PROVIDERS: PCP Internal Medicine; Visit Provider Internal Medicine Cardiovascular Disease
DX: I49.3 Ventricular premature depolarization (principal); Z95.818 Presence of other cardiac implants and grafts
CPT/HCPCS: 93298

== ENCOUNTER → 2024-07-06 23:59 | Outpatient (BNV) | payer MEDICARE, SELFPAY ==
--- NOTE | 2024-07-18 13:59 | MHC.OFFVIS ---
Intake Visit Reasons: Remote ILR check- [employer] Allergies meperidine [Demerol] Allergy (Unknown, Verified 04/29/24 12:45) Unknown nitroglycerin [NITROGLYCERIN] Allergy (Unknown, Verified 04/29/24 12:45) HYPOTENSION, no reactions were documented [facility] Medical History Implantable loop recorder present Physical exam Physical exam Pre-op examination Hyperlipidemia CAD (coronary artery disease) Hypertension Surgical History Hx of cardiac catheterization Hx of colonoscopy History of esophagogastroduodenoscopy (EGD) History of surgery H/O rectal polypectomy Family History Father No problems noted. Mother Heart disease Brother CAD (coronary artery disease) Paternal Uncle Myocardial infarction Social History Housing: House Alcohol intake: current Alcohol intake frequency: a few times a week Alcohol type: hard liquor Patient Tobacco Use Status: Former Tobacco user e-Cigarette/Vaping Use: Never Used Second Hand Smoke Exposure: No service: No Current occupational status: retired Cognitive needs: No Hearing needs: No Vision needs: No Office Procedures Cardiac Device Check Cardiac Device Check Details: Remote implantable loop recorder report generated 07/06/2024. I was requested to read this study today. Shows no episodes of atrial fibrillation with pauses. Shows frequent PACs with total burden of 1.2%, mostly isolated [id number] Cardiac Interrogation, subcut cardiac rhythm monitor Procedure code (CPT) selection complete Assessment & Plan Assessment & Plan (1) Implantable loop recorder present: Comment: [employer]. Placed by Dr. Diaz on 04/04/2024. serial number [id number] Code(s): Z95.818 - Presence of other cardiac implants and grafts Category: Medical Plan: See above Coding Level of Care Code Procedure Only Diagnoses Implantable loop recorder present Z95.818 CPT Codes Cardiac Device Check - Cardiac Device 16: [id number] Cardiac Interrogation, subcut cardiac rhythm monitor ([id number])
== END ==
PROVIDERS: PCP Internal Medicine; Visit Provider Internal Medicine Cardiovascular Disease
DX: Z45.09 Encounter for adjustment and management of other cardiac device (principal)
CPT/HCPCS: 93298

== ENCOUNTER 2024-08-01 08:33 | Outpatient (AMB) | payer MEDICARE, SELFPAY ==
[2024-08-01 08:37] VITALS: BP 156/84; PULSE 78; O2SAT 92; BMI 30.9
--- NOTE | 2024-08-01 08:37 | A.OFFPC_ITS ---
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 Accompanied by: Self / Same As Patient Allergies meperidine [Demerol] Allergy (Unknown, Verified 08/01/24 08:37) Unknown nitroglycerin [NITROGLYCERIN] Allergy (Unknown, Verified 08/01/24 08:37) HYPOTENSION, no reactions were documented Medication List - Last Reconciled 08/01/24 by Federico Falcon MD amlodipine 10 mg PO DAILY atorvastatin (Lipitor) 40 mg PO DAILY carvedilol 25 mg PO BID clopidogrel (Plavix) 75 mg PO DAILY eluxadoline (Viberzi) 100 mg PO BID furosemide 20 mg PO DAILY gabapentin 300 mg PO DAILY hydrochlorothiazide 25 mg PO DAILY hydroxyzine HCl 50 mg PO BEDTIME loperamide (Imodium A-D) 2 mg PO Q6H PRN pramipexole 0.5 mg PO BID pregabalin 75 mg PO BID sucralfate 1 g PO BID Tobacco use date assessed: 01/27/24 Fall risk assessment: No Falls in past year Last assessed Fall Risk: 08/01/24 Dental Screening Dental Screen Date: 01/27/24 HPI 6mof\u HPI Details HTN on Rx; doing well; compliant [facility] Medical History Implantable loop recorder present Physical exam Physical exam Pre-op examination Hyperlipidemia CAD (coronary artery disease) Hypertension Surgical History Hx of cardiac catheterization Hx of colonoscopy History of esophagogastroduodenoscopy (EGD) History of surgery H/O rectal polypectomy Family History Father No problems noted. Mother Heart disease Brother CAD (coronary artery disease) Paternal Uncle Myocardial infarction Social History Housing: House Alcohol intake: current Alcohol intake frequency: a few times a week Alcohol type: hard liquor Patient Tobacco Use Status: Former Tobacco user Tobacco use type: Cigarette e-Cigarette/Vaping Use: Never Used Second Hand Smoke Exposure: No service: No Current occupational status: retired Cognitive needs: No Hearing needs: No Vision needs: No Questionnaire PHQ-9 Over the last 2 weeks, how often have you been bothered by any of the following problems? 1. Little interest or pleasure in doing things: not at all 2. Feeling down, depressed, or hopeless: not at all 3. Trouble falling or staying asleep, or sleeping too much: not at all 4. Feeling tired or having little energy: not at all 5. Poor appetite or overeating: not at all 6. Feeling bad about yourself - or that you are a failure or have let yourself or your family down: not at all 7. Trouble concentrating on things, such as reading the newspaper or watching television: not at all 8. Moving or speaking so slowly that other people could have noticed. Or the opposite - being so fidgety or restless that you have been moving around a lot more than usual: not at all 9. Thoughts that you would be better off or of hurting yourself in some way: not at all Total score: 0 Depression Screening Interpretation: Negative Depression Screening Done: Yes 76572 - PHQ-9 Billing: Yes Source: Developed by Drs. Mateo Crockett, Yessi Ramos, Pineda Crowe and colleagues, with an educational boston from [employer]. Thrive Questionnaire Date Thrive assessed: 01/27/24 AUDIT C Alcohol Use Questionnaire (AUDIT-C) 1. How often do you have a drink containing alcohol?: Never 2. How many drinks containing alcohol do you have on a typical day when you are drinking?: 1 or 2 3. How often do you have six or more drinks on one occasion?: Never Total Score: 0 Score Reviewed/Action Taken: Yes MARY-7 AMB Questionnaire MARY-7 Date MARY - 7 assessed: 01/27/24 Source: Developed by Drs. Mateo Crockett, Yessi Ramos, Pineda Crowe and colleagues, with an educational boston from [employer]. Review of Systems Const Denies chills, Denies headache(s) and Denies weight loss ENT Denies headache(s) Card Denies chest pain, Denies syncope, Denies irregular heart rhythm and Denies dyspnea Resp Denies chest congestion, Denies cough and Denies dyspnea GI Denies abdominal pain, Denies change in stool character, Denies nausea and Denies vomiting Musc Denies deformity and Denies joint swelling Neuro Denies syncope and Denies headache(s) Physical exam (Primary Care) Vital Signs: Last Vital Signs Pulse 78 08/01/24 08:37 BP 156/84 H 08/01/24 08:37 Pulse Ox 92 08/01/24 08:37 Oxygen Delivery Method Room Air 08/01/24 08:37 BMI result Body Mass Index 30.9 Tobacco/Smoking Status: Tobacco use Status Tobacco use date assessed 01/27/24 08/01/24 08:40 Patient Tobacco Use Status Former Tobacco user 08/01/24 08:40 Tobacco use type Cigarette 08/01/24 08:40 e-Cigarette/Vaping Use Never Used 08/01/24 08:40 PHQ-9: PHQ-9 Score PHQ-9: Total score 0 08/01/24 08:40 Depression Screening Interpretation: Negative Thrive Assessment: Date of Thrive Assessment Date Thrive assessed 01/27/24 08/01/24 08:40 Const General: cooperative, comfortable, no acute distress and alert Neck Neck: Yes no lymphadenopathy Thyroid: Thyroid normal Resp Effort & Inspection: normal respiratory effort Auscultation: clear to auscultation bilaterally Percussion: percussion normal Cardio Jugular venous distension: no JVD Palpation: normal PMI Rate: regular rate Rhythm: regular rhythm Heart sounds: S1 normal heart sound present and S2 normal heart sound present GI Inspection: Yes normal to inspection Palpation (GI): No hepatosplenomegaly present Skin General skin exam: no rashes or lesions noted Extrem General: Yes no clubbing, cyanosis or edema Coding Level of Care Code Est Pt Level 3 (88717) Diagnoses Hypertension I10 Assessment & Plan Assessment & Plan (1) Hypertension: Code(s): I10 - Essential (primary) hypertension Category: Medical Plan: stable; same rx
== END 2024-08-01 09:05 | disposition home or self-care (01) ==
PROVIDERS: PCP Internal Medicine; Visit Provider Internal Medicine
DX: I10 Essential (primary) hypertension (principal)

== ENCOUNTER → 2024-08-01 08:33 | Outpatient (BNVA) | payer MEDICARE, SELFPAY | PROVIDERS: PCP Internal Medicine; Visit Provider Internal Medicine | DX: I10 Essential (primary) hypertension (principal); Z79.899 Other long term (current) drug therapy | CPT/HCPCS: 96127; 99212 ==

== ENCOUNTER → 2024-08-05 23:59 | Outpatient (BNV) | payer MEDICARE, SELFPAY ==
--- NOTE | 2024-08-15 17:03 | MHC.OFFVIS ---
Intake Visit Reasons: Remote ILR check- [employer] Allergies meperidine [Demerol] Allergy (Unknown, Verified 08/01/24 08:37) Unknown nitroglycerin [NITROGLYCERIN] Allergy (Unknown, Verified 08/01/24 08:37) HYPOTENSION, no reactions were documented [facility] Medical History Implantable loop recorder present Physical exam Physical exam Pre-op examination Hyperlipidemia CAD (coronary artery disease) Hypertension Surgical History Hx of cardiac catheterization Hx of colonoscopy History of esophagogastroduodenoscopy (EGD) History of surgery H/O rectal polypectomy Family History Father No problems noted. Mother Heart disease Brother CAD (coronary artery disease) Paternal Uncle Myocardial infarction Social History Housing: House Alcohol intake: current Alcohol intake frequency: a few times a week Alcohol type: hard liquor Patient Tobacco Use Status: Former Tobacco user Tobacco use type: Cigarette e-Cigarette/Vaping Use: Never Used Second Hand Smoke Exposure: No service: No Current occupational status: retired Cognitive needs: No Hearing needs: No Vision needs: No Office Procedures Cardiac Device Check Cardiac Device Check Details: Remote implantable loop recorder report generated 08/05/2024. No episodes of atrial fibrillation pauses noted. 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 Placed by Dr. Diaz on 04/04/2024. serial number [id number] Code(s): Z95.818 - Presence of other cardiac implants and grafts Category: Medical Plan: See above Coding Level of Care Code Procedure Only Diagnoses Implantable loop recorder present Z95.818 CPT Codes Cardiac Device Check - Cardiac Device 16: 16568-Mfmkrd Cardiac Interrogation, subcut cardiac rhythm monitor ([id number])
== END ==
PROVIDERS: PCP Internal Medicine; Visit Provider Internal Medicine Cardiovascular Disease
DX: Z45.09 Encounter for adjustment and management of other cardiac device (principal)
CPT/HCPCS: 93298

== ENCOUNTER → 2024-09-04 23:59 | Outpatient (BNV) | payer MEDICARE, SELFPAY ==
--- NOTE | 2024-09-07 10:31 | A.OFFVIS_ITS ---
Intake Visit Reasons: Remote ILR check-[employer] Allergies meperidine [Demerol] Allergy (Unknown, Verified 08/01/24 08:37) Unknown nitroglycerin [NITROGLYCERIN] Allergy (Unknown, Verified 08/01/24 08:37) HYPOTENSION, no reactions were documented [facility] Medical History Implantable loop recorder present Physical exam Physical exam Pre-op examination Hyperlipidemia CAD (coronary artery disease) Hypertension Surgical History Hx of cardiac catheterization Hx of colonoscopy History of esophagogastroduodenoscopy (EGD) History of surgery H/O rectal polypectomy Family History Father No problems noted. Mother Heart disease Brother CAD (coronary artery disease) Paternal Uncle Myocardial infarction Social History Housing: House Alcohol intake: current Alcohol intake frequency: a few times a week Alcohol type: hard liquor Patient Tobacco Use Status: Former Tobacco user Tobacco use type: Cigarette e-Cigarette/Vaping Use: Never Used Second Hand Smoke Exposure: No service: No Current occupational status: retired Cognitive needs: No Hearing needs: No Vision needs: No Office Procedures Cardiac Device Check Cardiac Device Check Details: Remote implantable loop recorder report generated 09/04/2024. No episodes of atrial fibrillation pauses noted. Frequent PVCs noted with total burden of 2.7% 55195-Jletls Cardiac Interrogation, subcut cardiac rhythm monitor Procedure code (CPT) selection complete Assessment & Plan Assessment & Plan (1) Implantable loop recorder present: Comment: [employer]. Placed by Dr. Diaz on 04/04/2024. serial number [id number] Code(s): Z95.818 - Presence of other cardiac implants and grafts Category: Medical Plan: See above Coding Level of Care Code Procedure Only Diagnoses Implantable loop recorder present Z95.818 CPT Codes Cardiac Device Check - Cardiac Device 16: 75252-Vuicca Cardiac Interrogation, subcut cardiac rhythm monitor ([id number])
== END ==
PROVIDERS: PCP Internal Medicine; Visit Provider Internal Medicine Cardiovascular Disease
DX: I49.3 Ventricular premature depolarization (principal); Z95.818 Presence of other cardiac implants and grafts
CPT/HCPCS: 93298

== ENCOUNTER → 2024-10-04 23:59 | Outpatient (BNV) | payer MEDICARE, SELFPAY ==
--- NOTE | 2024-10-10 16:38 | A.OFFVIS_ITS ---
Intake Visit Reasons: Remote ILR check-[employer] Allergies meperidine [Demerol] Allergy (Unknown, Verified 08/01/24 08:37) Unknown nitroglycerin [NITROGLYCERIN] Allergy (Unknown, Verified 08/01/24 08:37) HYPOTENSION, no reactions were documented [facility] Medical History Implantable loop recorder present Physical exam Physical exam Pre-op examination Hyperlipidemia CAD (coronary artery disease) Hypertension Surgical History Hx of cardiac catheterization Hx of colonoscopy History of esophagogastroduodenoscopy (EGD) History of surgery H/O rectal polypectomy Family History Father No problems noted. Mother Heart disease Brother CAD (coronary artery disease) Paternal Uncle Myocardial infarction Social History Housing: House Alcohol intake: current Alcohol intake frequency: a few times a week Alcohol type: hard liquor Patient Tobacco Use Status: Former Tobacco user Tobacco use type: Cigarette e-Cigarette/Vaping Use: Never Used Second Hand Smoke Exposure: No service: No Current occupational status: retired Cognitive needs: No Hearing needs: No Vision needs: No Office Procedures Cardiac Device Check Cardiac Device Check Details: Remote implantable loop recorder report generated 10/04/2024. No significant pauses or atrial fibrillation noted. 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 Placed by Dr. Diaz on 04/04/2024. serial number [id number] Code(s): Z95.818 - Presence of other cardiac implants and grafts Category: Medical Plan: See above Coding Level of Care Code Procedure Only Diagnoses Implantable loop recorder present Z95.818 CPT Codes Cardiac Device Check - Cardiac Device 16: 32213-Mumvjk Cardiac Interrogation, subcut cardiac rhythm monitor ([id number])
== END ==
PROVIDERS: PCP Internal Medicine; Visit Provider Internal Medicine Cardiovascular Disease
DX: I49.3 Ventricular premature depolarization (principal); Z95.818 Presence of other cardiac implants and grafts
CPT/HCPCS: 93298

== ENCOUNTER 2024-10-27 09:03 | Outpatient (AMB) | payer MEDICARE, SELFPAY ==
[2024-10-27 09:24] VITALS: BP 120/80; PULSE 70; BMI 31.1
--- NOTE | 2024-10-27 09:24 | A.OFFVIS_ITS ---
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 Control Required: No Allergies meperidine [Demerol] Allergy (Unknown, Verified 08/01/24 08:37) Unknown nitroglycerin [NITROGLYCERIN] Allergy (Unknown, Verified 08/01/24 08:37) HYPOTENSION, no reactions were documented Medication List - Last Reconciled 10/27/24 by Rene Diaz MD amlodipine 10 mg PO DAILY atorvastatin 40 mg PO DAILY carvedilol 25 mg PO BID clopidogrel 75 mg PO DAILY eluxadoline (Viberzi) 100 mg PO BID furosemide 20 mg PO DAILY gabapentin 300 mg PO DAILY hydrochlorothiazide 25 mg PO DAILY hydroxyzine HCl 50 mg PO BEDTIME loperamide (Imodium A-D) 2 mg PO Q6H PRN pramipexole 0.5 mg PO BID pregabalin 75 mg PO BID sucralfate 1 g PO BID HPI Comments Details: Erik comes for follow-up. He is having trouble with his eyes. Overall otherwise no cardiac symptoms. Denies any prolonged palpitation irregular heartbeat. Implantable loop recorder shows frequent PVCs but without any episodes of atrial fibrillation. He denies any exertional chest pain or shortness of breath. Denies any orthopnea, PND. No bleeding issues. No new neurologic symptoms. Blood pressure has remained better controlled. [facility] Medical History Implantable loop recorder present Physical exam Physical exam Pre-op examination Hyperlipidemia CAD (coronary artery disease) Hypertension Surgical History Hx of cardiac catheterization Hx of colonoscopy History of esophagogastroduodenoscopy (EGD) History of surgery H/O rectal polypectomy Family History Father No problems noted. Mother Heart disease Brother CAD (coronary artery disease) Paternal Uncle Myocardial infarction Social History Housing: House Alcohol intake: current Alcohol intake frequency: a few times a week Alcohol type: hard liquor Patient Tobacco Use Status: Former Tobacco user Tobacco use type: Cigarette e-Cigarette/Vaping Use: Never Used Second Hand Smoke Exposure: No service: No Current occupational status: retired Cognitive needs: No Hearing needs: No Vision needs: No Review of Systems Const Denies chills, Denies fatigue, Denies fever(s), Denies frequent falls, Denies weakness, Denies weight gain and Denies weight loss ENT Denies dizziness Card Denies chest pain, Denies leg edema, Denies lightheadedness, Denies palpitations, Denies dyspnea, Denies dyspnea on exertion, Denies orthopnea and Denies other (loss of consciousness) Resp Denies cough, Denies dyspnea and Denies dyspnea on exertion GI Denies hematochezia and Denies change in stool character Musc Denies abnormal gait, Denies muscle weakness, Denies numbness, Denies radiating pain into limb and Denies tingling Neuro Denies abnormal gait, Denies dizziness, Denies frequent falls, Denies numbness, Denies tingling and Denies weakness Endo Denies fatigue and Denies palpitations Physical Exam Vital Signs: Last Vital Signs Pulse 70 10/27/24 09:24 BP 120/80 10/27/24 09:24 BMI result Body Mass Index 31.1 Const General: cooperative, comfortable, no acute distress, alert and awake Nutritional Appearance: overweight Orientation/consciousness: patient oriented x3 Neck Neck: Yes trachea midline, Yes supple and Yes no JVD Resp Effort & Inspection: normal respiratory effort Auscultation: clear to auscultation bilaterally Cardio Jugular venous distension: no JVD Palpation: normal PMI Rate: regular rate Rhythm: regular rhythm Heart sounds: S1 normal heart sound present, S2 normal heart sound present, no click, no gallops, no murmurs, no rubs and Other heart sounds present ( Soft S4 present) Skin General skin exam: no rashes or lesions noted Neuro General: patient oriented x3 and no focal motor deficits Extrem General: No clubbing, No cyanosis and Yes edema ( mild) Office Procedures Cardiac Device Check Cardiac Device Check Details: [employer] implantable loop recorder reviewed. No atrial fibrillation noted. No pauses noted. Frequent PVCs noted with total burden of 2.2%. Battery life is okay. R-wave sensing is adequate [id number]-Xnkyine Device Interrogation, subcut cardiac rhythm monitor Procedure code (CPT) selection complete Assessment & Plan Assessment & Plan (1) CAD (coronary artery disease): Comment: Nonobstructive by cardiac catheterization Code(s): I25.10 - Atherosclerotic heart disease of [place] coronary artery without angina pectoris Category: Medical Plan: Diffuse atherosclerotic disease with nonobstructive coronary disease with no new symptoms from cardiac perspective. 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 I would consider given his diffuse atherosclerotic process to continue dual antiplatelet therapy as longest he tolerates it. Continue aggressive risk factor modification. Continue aggressive blood pressure control, see below. Continue aggressive lipid modification goal LDL closer to 55 mg/dL. Advise at least annual lipid check. Encouraged to maintain activity level as tolerated. (2) Hypertension: Code(s): I10 - Essential (primary) hypertension Category: Medical Plan: Hypertension which is currently well optimized. Continue current therapy providers good blood pressure control was discussed. Low-salt diet was discussed. Advised to monitor blood pressure at home maintain a log. Goal blood pressure less than 130/84. (3) Implantable loop recorder present: Comment: [employer]. Placed by Dr. Diaz on 04/04/2024. 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 No evidence of atrial fibrillation so far. Will follow 6 months remotely. If no further atrial fibrillation will consider explanting the loop recorder. Follow up in the clinic in 6 months time, sooner p.r.n.. Thank you for allowing me to partake in his care Coding Level of Care Code Est Pt Level 4 (39503) Complex EM visit Add On G2211 Diagnoses CAD (coronary artery disease) I25.10 Hypertension I10 Implantable loop recorder present Z95.818 CPT Codes Cardiac Device Check - Cardiac Device 11: 81878-Drqmcyz Device Interrogation, subcut cardiac rhythm monitor ([id number])
== END 2024-10-27 10:10 | disposition home or self-care (01) ==
PROVIDERS: PCP Internal Medicine; Visit Provider Internal Medicine Cardiovascular Disease
DX: I25.10 Atherosclerotic heart disease of native coronary artery without angina pectoris (principal); I10 Essential (primary) hypertension; Z95.818 Presence of other cardiac implants and grafts
CPT/HCPCS: 93291; 99214; G2211

== ENCOUNTER → 2024-10-27 09:03 | Outpatient (BNVA) | payer MEDICARE, SELFPAY | PROVIDERS: PCP Internal Medicine; Visit Provider Internal Medicine Cardiovascular Disease | DX: Z45.09 Encounter for adjustment and management of other cardiac device (principal); I10 Essential (primary) hypertension; I25.10 Atherosclerotic heart disease of native coronary artery without angina pectoris | CPT/HCPCS: 99212 ==

== ENCOUNTER 2024-12-02 08:35 | Outpatient (AMB) | payer MEDICARE, SELFPAY ==
[2024-12-02 08:41] VITALS: BP 124/70; PULSE 74; O2SAT 96; BMI 31.2
--- NOTE | 2024-12-02 08:41 | A.OFFPC_ITS ---
Vital Signs 12/02/24 08:41 Height 6 ft Weight 230 lb BMI 31.2 BP 124/70 Blood Pressure Location Lt brachial Position Sitting Pulse 74 Pulse Source Pulse Oximeter Pulse Oximetry (%) 96 Oxygen Delivery Method Room Air Intake Visit Reasons: 4 month f/u Allergies meperidine [Demerol] Allergy (Unknown, Verified 12/02/24 08:42) Unknown nitroglycerin [NITROGLYCERIN] Allergy (Unknown, Verified 12/02/24 08:42) HYPOTENSION, no reactions were documented Medication List - Last Reconciled 12/02/24 by Federico Falcon MD amlodipine 10 mg PO DAILY atorvastatin 40 mg PO DAILY carvedilol 25 mg PO BID clopidogrel 75 mg PO DAILY eluxadoline (Viberzi) 100 mg PO BID furosemide 20 mg PO DAILY gabapentin 300 mg PO DAILY hydrochlorothiazide 25 mg PO DAILY hydroxyzine HCl 50 mg PO BEDTIME loperamide (Imodium A-D) 2 mg PO Q6H PRN pramipexole 0.5 mg PO BID pregabalin 75 mg PO BID sucralfate 1 g PO BID Tobacco use date assessed: 12/02/24 Fall risk assessment: No Falls in past year Last assessed Fall Risk: 12/02/24 Dental Screening Dental Screen Date: 12/02/24 Did you have a dental visit in the last 12 months?: No Did you have a dental problem in the last 6 months where you did not have access to dental care?: No Was dental information given to patient?: Patient has dentist HPI 4 month f/u HPI Details Hypertension on rx; doing well; compliant PFS Medical History Implantable loop recorder present Physical exam Physical exam Pre-op examination Hyperlipidemia CAD (coronary artery disease) Hypertension Surgical History Hx of cardiac catheterization Hx of colonoscopy History of esophagogastroduodenoscopy (EGD) History of surgery H/O rectal polypectomy Family History Father No problems noted. Mother Heart disease Brother CAD (coronary artery disease) Paternal Uncle Myocardial infarction Social History Housing: House Alcohol intake: current Alcohol intake frequency: a few times a week Alcohol type: hard liquor Patient Tobacco Use Status: Former Tobacco user Tobacco use type: Cigarette e-Cigarette/Vaping Use: Never Used Second Hand Smoke Exposure: No service: No Current occupational status: retired Cognitive needs: No Hearing needs: No Vision needs: No Questionnaire PHQ-9 Over the last 2 weeks, how often have you been bothered by any of the following problems? 1. Little interest or pleasure in doing things: not at all 2. Feeling down, depressed, or hopeless: not at all 3. Trouble falling or staying asleep, or sleeping too much: not at all 4. Feeling tired or having little energy: not at all 5. Poor appetite or overeating: not at all 6. Feeling bad about yourself - or that you are a failure or have let yourself or your family down: not at all 7. Trouble concentrating on things, such as reading the newspaper or watching television: not at all 8. Moving or speaking so slowly that other people could have noticed. Or the opposite - being so fidgety or restless that you have been moving around a lot more than usual: not at all 9. Thoughts that you would be better off or of hurting yourself in some way: not at all Total score: 0 Depression Screening Interpretation: Negative Depression Screening Done: Yes 64717 - PHQ-9 Billing: Yes Source: Developed by Drs. Mateo Crockett, Yessi Ramos, Pineda Crowe and colleagues, with an educational boston from [employer]. Thrive Questionnaire Date Thrive assessed: 12/02/24 I am a: Patient What is your living situation today?: I have a steady place to live Within the past 12 months, did the food you bought not last and you didn't have the money to get more?: Never true Within the past 12 months, did you worry whether your food would run out before you got money to buy more?: Never true Do you have trouble paying for medicines?: No Do you have trouble getting transportation to medical appointments?: No Do you have trouble paying your heating and electricity bill?: No Do you have trouble taking care of your child, family member or friend?: No Do you have trouble with day-to-day activities such as bathing, preparing meals, shopping, managing finances, etc.?: No Are you currently unemployed and looking for a job?: No Are you interested in more education?: No Currently or been in a relationship where the following occur: No concerns reported THRIVE Score: 0 AUDIT C Alcohol Use Questionnaire (AUDIT-C) 2. How many drinks containing alcohol do you have on a typical day when you are drinking?: 1 or 2 3. How often do you have six or more drinks on one occasion?: Never Total Score: 0 MARY-7 AMB Questionnaire MARY-7 Date MARY - 7 assessed: 12/02/24 Feeling nervous, anxious, or on edge: 0 = Not at all Not being able to stop or control worryin = Not at all Worrying too much about different things: 0 = Not at all Trouble relaxin = Not at all Being so restless that it is hard to sit still: 0 = Not at all Becoming easily annoyed or irritable: 0 = Not at all Feeling afraid as if something awful might happen: 0 = Not at all Total MARY-7 score (0-4 normal; 5-9 mild; 10-14 moderate; 15-21 severe): 0 Source: Developed by Drs. Mateo Crockett, Yessi Ramos, Pineda Crowe and colleagues, with an educational boston from [employer]. Review of Systems Const Denies chills, Denies headache(s) and Denies weight loss ENT Denies headache(s) Card Denies chest pain, Denies syncope, Denies irregular heart rhythm and Denies dyspnea Resp Denies chest congestion, Denies cough and Denies dyspnea GI Denies abdominal pain, Denies change in stool character, Denies nausea and Denies vomiting Musc Denies deformity and Denies joint swelling Neuro Denies syncope and Denies headache(s) Physical exam (Primary Care) Vital Signs: Last Vital Signs Pulse 74 12/02/24 08:41 BP 124/70 12/02/24 08:41 Pulse Ox 96 12/02/24 08:41 Oxygen Delivery Method Room Air 12/02/24 08:41 BMI result Body Mass Index 31.2 Tobacco/Smoking Status: Tobacco use Status Tobacco use date assessed 12/02/24 12/02/24 08:46 Patient Tobacco Use Status Former Tobacco user 12/02/24 08:46 Tobacco use type Cigarette 12/02/24 08:46 e-Cigarette/Vaping Use Never Used 12/02/24 08:46 PHQ-9: PHQ-9 Score PHQ-9: Total score 0 12/02/24 08:46 Depression Screening Interpretation: Negative Thrive Assessment: Date of Thrive Assessment Date Thrive assessed 12/02/24 12/02/24 08:46 Currently or been in a relationship where the following occur: No concerns reported Const General: cooperative, comfortable, no acute distress and alert Neck Neck: Yes no lymphadenopathy Thyroid: Thyroid normal Resp Effort & Inspection: normal respiratory effort Auscultation: clear to auscultation bilaterally Percussion: percussion normal Cardio Jugular venous distension: no JVD Palpation: normal PMI Rate: regular rate Rhythm: regular rhythm Heart sounds: S1 normal heart sound present and S2 normal heart sound present GI Inspection: Yes normal to inspection Palpation (GI): No hepatosplenomegaly present Skin General skin exam: no rashes or lesions noted Extrem General: Yes no clubbing, cyanosis or edema Coding Level of Care Code Est Pt Level 3 (29152) Diagnoses Hypertension I10 Additional Codes PHQ-9 - 26499 - PHQ-9 Billing: Yes ([id number]) Assessment & Plan Assessment & Plan (1) Hypertension: Code(s): I10 - Essential (primary) hypertension Category: Medical Plan: stale; same rx
== END 2024-12-02 09:19 | disposition home or self-care (01) ==
PROVIDERS: PCP Internal Medicine; Visit Provider Internal Medicine
DX: I10 Essential (primary) hypertension (principal)

== ENCOUNTER → 2024-12-02 08:35 | Outpatient (BNVA) | payer MEDICARE, SELFPAY | PROVIDERS: PCP Internal Medicine; Visit Provider Internal Medicine | DX: I10 Essential (primary) hypertension (principal) | CPT/HCPCS: 96127; 99212 ==

== ENCOUNTER → 2024-12-03 23:59 | Outpatient (BNV) | payer MEDICARE, SELFPAY ==
--- NOTE | 2024-12-05 15:37 | A.OFFVIS_ITS ---
Intake Visit Reasons: Remote ILR check-[employer] Allergies meperidine [Demerol] Allergy (Unknown, Verified 12/02/24 08:42) Unknown nitroglycerin [NITROGLYCERIN] Allergy (Unknown, Verified 12/02/24 08:42) HYPOTENSION, no reactions were documented [facility] Medical History Implantable loop recorder present Physical exam Physical exam Pre-op examination Hyperlipidemia CAD (coronary artery disease) Hypertension Surgical History Hx of cardiac catheterization Hx of colonoscopy History of esophagogastroduodenoscopy (EGD) History of surgery H/O rectal polypectomy Family History Father No problems noted. Mother Heart disease Brother CAD (coronary artery disease) Paternal Uncle Myocardial infarction Social History Housing: House Alcohol intake: current Alcohol intake frequency: a few times a week Alcohol type: hard liquor Patient Tobacco Use Status: Former Tobacco user Tobacco use type: Cigarette e-Cigarette/Vaping Use: Never Used Second Hand Smoke Exposure: No service: No Current occupational status: retired Cognitive needs: No Hearing needs: No Vision needs: No Office Procedures Cardiac Device Check Cardiac Device Check Details: Remote implantable loop recorder report generated 12/03/2024. No atrial fibrillation or pauses noted. Total burden of PVCs at 0.9% [id number] Cardiac Interrogation, subcut cardiac rhythm monitor Procedure code (CPT) selection complete Assessment & Plan Assessment & Plan (1) Implantable loop recorder present: Comment: [employer]. Placed by Dr. Diaz on 04/04/2024. serial number [id number] Code(s): Z95.818 - Presence of other cardiac implants and grafts Category: Medical Plan: See above Coding Level of Care Code Procedure Only Diagnoses Implantable loop recorder present Z95.818 CPT Codes Cardiac Device Check - Cardiac Device 16: [id number] Cardiac Interrogation, subcut cardiac rhythm monitor ([id number])
== END ==
PROVIDERS: PCP Internal Medicine; Visit Provider Internal Medicine Cardiovascular Disease
DX: I49.3 Ventricular premature depolarization (principal); Z95.818 Presence of other cardiac implants and grafts
CPT/HCPCS: 93298

== ENCOUNTER → 2025-01-02 23:59 | Outpatient (BNV) | payer MEDICARE, SELFPAY ==
--- NOTE | 2025-01-09 15:49 | MHC.OFFVIS ---
Intake Visit Reasons: REmote ILR check- [employer] Allergies meperidine [Demerol] Allergy (Unknown, Verified 12/02/24 08:42) Unknown nitroglycerin [NITROGLYCERIN] Allergy (Unknown, Verified 12/02/24 08:42) HYPOTENSION, no reactions were documented [facility] Medical History Implantable loop recorder present Physical exam Physical exam Pre-op examination Hyperlipidemia CAD (coronary artery disease) Hypertension Surgical History Hx of cardiac catheterization Hx of colonoscopy History of esophagogastroduodenoscopy (EGD) History of surgery H/O rectal polypectomy Family History Father No problems noted. Mother Heart disease Brother CAD (coronary artery disease) Paternal Uncle Myocardial infarction Social History Housing: House Alcohol intake: current Alcohol intake frequency: a few times a week Alcohol type: hard liquor Patient Tobacco Use Status: Former Tobacco user Tobacco use type: Cigarette e-Cigarette/Vaping Use: Never Used Second Hand Smoke Exposure: No service: No Current occupational status: retired Cognitive needs: No Hearing needs: No Vision needs: No Office Procedures Cardiac Device Check Cardiac Device Check Details: Remote implantable loop recorder report generated 01/02/2025. No atrial fibrillation or pauses noted. Occasional burden of PVC at 1% noted [id number] Cardiac Interrogation, subcut cardiac rhythm monitor Procedure code (CPT) selection complete Assessment & Plan Assessment & Plan (1) Implantable loop recorder present: Comment: [employer]. Placed by Dr. Diaz on 04/04/2024. serial number [id number] Code(s): Z95.818 - Presence of other cardiac implants and grafts Category: Medical Plan: See above Coding Level of Care Code Procedure Only Diagnoses Implantable loop recorder present Z95.818 CPT Codes Cardiac Device Check - Cardiac Device 16: [id number] Cardiac Interrogation, subcut cardiac rhythm monitor ([id number])
== END ==
PROVIDERS: PCP Internal Medicine; Visit Provider Internal Medicine Cardiovascular Disease
DX: I49.3 Ventricular premature depolarization (principal); Z95.818 Presence of other cardiac implants and grafts
CPT/HCPCS: 93298

== ENCOUNTER 2025-01-11 10:14 | Outpatient (AMB) | payer MEDICARE, SELFPAY ==
--- NOTE | 2025-01-11 10:30 | A.OFFVIS_ITS ---
Vital Signs 01/11/25 10:41 Height 6 ft Weight 229 lb 4.492 oz BMI 31.1 BP 162/91 H Blood Pressure Location Lt brachial Position Sitting Pulse 76 Intake Visit Reasons: 6 month follow up Intake Note: Patient in office today in 6 months follow up. CC: Patient continues to take Imodium QD to help with diarrhea. He discontinued the Viberzi because it was not doing much and it was too expensive. 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 Since this was not even a year ago he has not ready to discuss this yet Assessment & Plan (1) Irritable bowel syndrome with diarrhea: Code(s): K58.0 - Irritable bowel syndrome with diarrhea Category: Medical (2) Tubular adenoma of colon: Comment: TVA 07/2023 scope repeat in 1 year Code(s): D12.6 - Benign neoplasm of colon, unspecified Category: Medical Plan REFILL VIBERZI He is doing better, he is now having more solid BM's - at times too solid. We discuss fiber such as Benefiber or Citrtucel for this. This is the 1st we have had any success with his diarrhea and he is happy about. He even ran out of it 3 weeks ago and still has had some persisting bowel control. Return office visit in 6 months. Medications: Refilled eluxadoline (Viberzi) must administer with a meal/food 100 mg PO BID 60 tabs 5RF K58.0 - Irritable bowel syndrome with diarrhea TODAY'S VISIT He is happy using imodium every day, less expensive than Viberzi. 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 He did have some carotid stenosis. ROV 6 mos. as he wants to continue with our services. [facility] Medical History Implantable loop recorder present Physical exam Physical exam Pre-op examination Hyperlipidemia CAD (coronary artery disease) Hypertension Surgical History Hx of cardiac catheterization Hx of colonoscopy History of esophagogastroduodenoscopy (EGD) History of surgery H/O rectal polypectomy Family History Father No problems noted. Mother Heart disease Brother CAD (coronary artery disease) Paternal Uncle Myocardial infarction Social History Housing: House Alcohol intake: current Alcohol intake frequency: a few times a week Alcohol type: hard liquor Patient Tobacco Use Status: Former Tobacco user Tobacco use type: Cigarette e-Cigarette/Vaping Use: Never Used Second Hand Smoke Exposure: No service: No Current occupational status: retired Cognitive needs: No Hearing needs: No Vision needs: No Review of Systems Const Denies fatigue, Denies fever(s), Denies night sweats, Denies poor appetite and Denies weight loss Eyes Reports loss of vision ENT Reports Normal hearing present, Denies dental pain, Denies dysphagia, Denies hearing loss, Denies mouth pain, Denies odynophagia, Denies throat swelling, Denies tongue swelling and Reports other (Dentition adequate) Card Reports no additional complaints Resp Reports no additional complaints GI Details: Denies abdominal pain, Denies melena, Denies bloating, Denies hematochezia, Denies constipation, Denies GI cramping, Denies dysphagia, Denies excessive flatus, Denies early satiety, Denies heartburn, Reports diarrhea, Denies nausea, Denies odynophagia, Denies vomiting and Denies hematemesis Skin/Breast Denies pruritus, Denies lesions, Denies rash and Denies jaundice Neuro Reports Normal hearing present, Denies Abnormal speech present and Reports loss of vision Endo Denies fatigue Aller/Immun Denies throat swelling and Denies tongue swelling Physical Exam Vital Signs: Last Vital Signs Pulse 76 01/11/25 10:41 BP 162/91 H 01/11/25 10:41 BMI result Body Mass Index 31.1 Const General: cooperative, no acute distress, well developed and well groomed Nutritional Appearance: well nourished and obese Orientation/consciousness: oriented to person, oriented to place and oriented to time Limitations: No language barrier HEENT Head: Yes normocephalic and Yes atraumatic Eyes General: appearance normal, both eyes and all related structures Pupils: Equal, round and reactive pupils present Neck Neck: Yes normal visual inspection and Yes no lymphadenopathy Thyroid: Thyroid normal Resp Effort & Inspection: normal respiratory effort and able to speak in complete sentences Auscultation: clear to auscultation bilaterally Cardio Rate: regular rate Rhythm: regular rhythm Heart sounds: Normal, physiologic split S2 sound present Peripheral pulses: radial pulses present and posterior tibial pulses present GI Inspection: No distended, No Abdominal panniculus present and Yes obesity Palpation (GI): Soft to palpation, nontender, no guarding, not rigid and No hepatosplenomegaly present Percussion: Yes normal to percussion Auscultation: normal bowel sounds Rectal Exam - Male: Yes deferred Skin General skin exam: no rashes or lesions noted, turgor normal, skin not dry, no jaundice, No spider nevi and no striae Rashes: no rashes Nails: normal Neuro General: oriented to person, oriented to place and oriented to time Cranial nerves: Yes Equal, round and reactive pupils present and Yes Normal hearing present Speech: No Abnormal speech present Extrem General: Yes normal to inspection, No clubbing, No cyanosis and No edema Psych Appearance: grossly normal and well kempt Mental Status: mental status grossly normal Speech and movement: Normal speech and movement present Affect: normal affect Attitude: cooperative Thought process: Normal thought process present and not confabulating Thought content: Normal thought content present Insight: Fair insight present (Psych) Judgement: Fair judgement present (Psych) Assessment & Plan Assessment & Plan (1) Small intestinal bacterial overgrowth (SIBO), hydrogen subtype: Code(s): K63.8211 - Small intestinal bacterial overgrowth, hydrogen-subtype Category: Medical (2) Irritable bowel syndrome with diarrhea: Code(s): K58.0 - Irritable bowel syndrome with diarrhea Category: Medical Plan He is happy using imodium every day, less expensive than Viberzi. 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 He did have some carotid stenosis. ROV 6 mos. as he wants to continue with our services. Medications: New loperamide (Imodium A-D) 2 mg PO Q6H PRN 90 caps 6RF loose stools K58.0 - Irritable bowel syndrome with diarrhea Coding Level of Care Code Est Pt Level 3 (99850) Diagnoses Small intestinal bacterial overgrowth (SIBO), hydrogen subtype K63.8211 Irritable bowel syndrome with diarrhea K58.0
[2025-01-11 10:41] VITALS: BP 162/91; PULSE 76; BMI 31.1
== END 2025-01-11 11:42 | disposition home or self-care (01) ==
LOC: HO.HGI 10:14
PROVIDERS: PCP Internal Medicine; Visit Provider Nurse Practitioner
DX: K63.8211 Small intestinal bacterial overgrowth, hydrogen-subtype (principal); K58.0 Irritable bowel syndrome with diarrhea
CPT/HCPCS: 99213

== ENCOUNTER → 2025-01-11 10:14 | Outpatient (BNVA) | payer MEDICARE, SELFPAY | PROVIDERS: PCP Internal Medicine; Visit Provider Nurse Practitioner | DX: K58.0 Irritable bowel syndrome with diarrhea (principal); K63.8211 Small intestinal bacterial overgrowth, hydrogen-subtype | CPT/HCPCS: 99212 ==

== ENCOUNTER → 2025-02-01 23:59 | Outpatient (BNV) | payer MEDICARE, SELFPAY ==
--- NOTE | 2025-02-07 14:43 | A.OFFVIS_ITS ---
Intake Visit Reasons: Remote ILR check-[employer] Allergies meperidine [Demerol] Allergy (Unknown, Verified 01/11/25 10:50) Unknown nitroglycerin [NITROGLYCERIN] Allergy (Unknown, Verified 01/11/25 10:50) HYPOTENSION, no reactions were documented [facility] Medical History Implantable loop recorder present Physical exam Physical exam Pre-op examination Hyperlipidemia CAD (coronary artery disease) Hypertension Surgical History Hx of cardiac catheterization Hx of colonoscopy History of esophagogastroduodenoscopy (EGD) History of surgery H/O rectal polypectomy Family History Father No problems noted. Mother Heart disease Brother CAD (coronary artery disease) Paternal Uncle Myocardial infarction Social History Housing: House Alcohol intake: current Alcohol intake frequency: a few times a week Alcohol type: hard liquor Patient Tobacco Use Status: Former Tobacco user Tobacco use type: Cigarette e-Cigarette/Vaping Use: Never Used Second Hand Smoke Exposure: No service: No Current occupational status: retired Cognitive needs: No Hearing needs: No Vision needs: No Office Procedures Cardiac Device Check Cardiac Device Check Details: Remote implantable loop recorder report generated 02/05/2025. No atrial fibrillation or pauses noted. Total burden of PVCs at 0.9% 48569-[id number] Cardiac Interrogation, subcut cardiac rhythm monitor Procedure code (CPT) selection complete Assessment & Plan Assessment & Plan (1) Implantable loop recorder present: Comment: [employer]. Placed by Dr. Diaz on 04/04/2024. serial number [id number] Code(s): Z95.818 - Presence of other cardiac implants and grafts Category: Medical Plan: See above Coding Level of Care Code Procedure Only Diagnoses Implantable loop recorder present Z95.818 CPT Codes Cardiac Device Check - Cardiac Device 16: [id number] Cardiac Interrogation, subcut cardiac rhythm monitor ([id number])
== END ==
PROVIDERS: PCP Internal Medicine; Visit Provider Internal Medicine Cardiovascular Disease
DX: I49.3 Ventricular premature depolarization (principal); Z95.818 Presence of other cardiac implants and grafts
CPT/HCPCS: 93298

== ENCOUNTER → 2025-03-03 23:59 | Outpatient (BNV) | payer MEDICARE, SELFPAY ==
--- NOTE | 2025-03-11 12:25 | MHC.OFFVIS ---
Intake Visit Reasons: Remote ILR check- [employer] Allergies meperidine [Demerol] Allergy (Unknown, Verified 01/11/25 10:50) Unknown nitroglycerin [NITROGLYCERIN] Allergy (Unknown, Verified 01/11/25 10:50) HYPOTENSION, no reactions were documented [facility] Medical History Implantable loop recorder present Physical exam Physical exam Pre-op examination Hyperlipidemia CAD (coronary artery disease) Hypertension Surgical History Hx of cardiac catheterization Hx of colonoscopy History of esophagogastroduodenoscopy (EGD) History of surgery H/O rectal polypectomy Family History Father No problems noted. Mother Heart disease Brother CAD (coronary artery disease) Paternal Uncle Myocardial infarction Social History Housing: House Alcohol intake: current Alcohol intake frequency: a few times a week Alcohol type: hard liquor Patient Tobacco Use Status: Former Tobacco user Tobacco use type: Cigarette e-Cigarette/Vaping Use: Never Used Second Hand Smoke Exposure: No service: No Current occupational status: retired Cognitive needs: No Hearing needs: No Vision needs: No Office Procedures Cardiac Device Check Cardiac Device Check Details: Remote implantable loop recorder report generated 03/03/2025. No pauses or atrial fibrillation noted. Total PVC burden of 0.9% 14318-Juzxmt Cardiac Interrogation, subcut cardiac rhythm monitor Procedure code (CPT) selection complete Assessment & Plan Assessment & Plan (1) Implantable loop recorder present: Comment: [employer]. Placed by Dr. Diaz on 04/04/2024. serial number [id number] Code(s): Z95.818 - Presence of other cardiac implants and grafts Category: Medical Plan: See above Coding Level of Care Code Procedure Only Diagnoses Implantable loop recorder present Z95.818 CPT Codes Cardiac Device Check - Cardiac Device 16: 50622-[id number] Cardiac Interrogation, subcut cardiac rhythm monitor ([id number])
== END ==
PROVIDERS: PCP Internal Medicine; Visit Provider Internal Medicine Cardiovascular Disease
DX: I49.3 Ventricular premature depolarization (principal); Z95.818 Presence of other cardiac implants and grafts
CPT/HCPCS: 93298

== ENCOUNTER → 2025-04-02 23:59 | Outpatient (BNV) | payer MEDICARE, SELFPAY ==
--- NOTE | 2025-04-11 16:23 | A.OFFVIS_ITS ---
Intake Visit Reasons: Remote ILR check- [employer] Allergies meperidine (Demerol) Allergy (Unknown, Verified 01/11/25 10:50) Unknown nitroglycerin (NITROGLYCERIN) Allergy (Unknown, Verified 01/11/25 10:50) HYPOTENSION, no reactions were documented [facility] Medical History Implantable loop recorder present Physical exam Physical exam Pre-op examination Hyperlipidemia CAD (coronary artery disease) Hypertension Surgical History Hx of cardiac catheterization Hx of colonoscopy History of esophagogastroduodenoscopy (EGD) History of surgery H/O rectal polypectomy Family History Father No problems noted. Mother Heart disease Brother CAD (coronary artery disease) Paternal Uncle Myocardial infarction Social History Housing: House Alcohol intake: current Alcohol intake frequency: a few times a week Alcohol type: hard liquor Patient Tobacco Use Status: Former Tobacco user Tobacco use type: Cigarette e-Cigarette/Vaping Use: Never Used Second Hand Smoke Exposure: No service: No Current occupational status: retired Cognitive needs: No Hearing needs: No Vision needs: No Office Procedures Cardiac Device Check Cardiac Device Check Details: Remote implantable loop recorder report generated 04/02/2025. No atrial fibrillation or pauses noted. Rare PVCs noted with total burden of 0.8% [id number] Cardiac Interrogation, subcut cardiac rhythm monitor Procedure code (CPT) selection complete Assessment & Plan Assessment & Plan (1) Implantable loop recorder present: Comment: [employer]. Placed by Dr. Diaz on 04/04/2024. serial number [id number] Code(s): Z95.818 - Presence of other cardiac implants and grafts Category: Medical Plan: See above Coding Level of Care Code Procedure Only Diagnoses Implantable loop recorder present Z95.818 CPT Codes Cardiac Device Check - Cardiac Device 16: 15763-Npeoqv Cardiac Interrogation, subcut cardiac rhythm monitor ([id number])
== END ==
PROVIDERS: PCP Internal Medicine; Visit Provider Internal Medicine Cardiovascular Disease
DX: I49.3 Ventricular premature depolarization (principal); Z95.818 Presence of other cardiac implants and grafts
CPT/HCPCS: 93298

== ENCOUNTER 2025-04-18 13:15 | Outpatient (AMB) | payer MEDICARE, SELFPAY ==
--- NOTE | 2025-04-18 13:26 | A.OFFPC_ITS ---
Vital Signs 04/18/25 13:27 Height 6 ft Weight 224 lb BMI 30.4 BP 132/78 Blood Pressure Location Lt brachial Position Sitting Intake Visit Reasons: Transfer care from Dr. 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 Accompanied by: Self / Same As Patient Allergies meperidine (Demerol) Allergy (Unknown, Verified 04/18/25 13:37) Unknown nitroglycerin (NITROGLYCERIN) Allergy (Unknown, Verified 04/18/25 13:37) HYPOTENSION, no reactions were documented Medication List - Last Reconciled 04/18/25 by Joann Rodgers MD amlodipine 10 mg PO DAILY atorvastatin 40 mg PO DAILY carvedilol 25 mg PO BID clopidogrel 75 mg PO DAILY eluxadoline (Viberzi) 100 mg PO BID furosemide 20 mg PO DAILY hydrochlorothiazide 25 mg PO DAILY hydroxyzine HCl 50 mg PO BEDTIME loperamide (Imodium A-D) 2 mg PO Q6H PRN pramipexole 0.5 mg PO BID pregabalin 75 mg PO BID ramelteon 8 mg PO BEDTIME PRN Tobacco use date assessed: 12/02/24 Fall risk assessment: 1 Fall in past year Last assessed Fall Risk: 04/18/25 Dental Screening Dental Screen Date: 12/02/24 HPI HPI Comments History of Present Illness Details This is a 75-year-old male with hypertension, hyperlipidemia, coronary artery disease and history of retinal artery occlusion about a year ago that comes today to transfer care from retiring doctor. Blood pressure stable. Lipid panel will be order for next office visit. Denies any chest pain or shortness on breath and does follows with cardiology. Has some bilateral leg edema on furosemide as needed. He complains of some vision changes and will contact his retinologist estelita. He also has restless leg syndrome and insomnia and I will prescribe magnesium to see if it helps. [facility] Medical History (Updated 04/18/25 @ 13:54 by Joann Rodgers MD) Implantable loop recorder present Physical exam Physical exam Pre-op examination Hyperlipidemia CAD (coronary artery disease) Hypertension Surgical History Hx of cardiac catheterization Hx of colonoscopy History of esophagogastroduodenoscopy (EGD) History of surgery H/O rectal polypectomy Family History Father No problems noted. Mother Heart disease Brother CAD (coronary artery disease) Paternal Uncle Myocardial infarction Social History (Updated 04/18/25 @ 13:45 by Joann Rodgers MD) Housing: House Alcohol intake: current Alcohol intake frequency: a few times a week Alcohol type: beer and wine Patient Tobacco Use Status: Former Tobacco user Tobacco use type: Cigarette e-Cigarette/Vaping Use: Never Used Second Hand Smoke Exposure: No service: No Current occupational status: retired Cognitive needs: No Hearing needs: No Vision needs: No Questionnaire PHQ-9 Over the last 2 weeks, how often have you been bothered by any of the following problems? 1. Little interest or pleasure in doing things: not at all 2. Feeling down, depressed, or hopeless: not at all 3. Trouble falling or staying asleep, or sleeping too much: several days 4. Feeling tired or having little energy: several days 5. Poor appetite or overeating: not at all 6. Feeling bad about yourself - or that you are a failure or have let yourself or your family down: not at all 7. Trouble concentrating on things, such as reading the newspaper or watching television: not at all 8. Moving or speaking so slowly that other people could have noticed. Or the opposite - being so fidgety or restless that you have been moving around a lot more than usual: not at all 9. Thoughts that you would be better off or of hurting yourself in some way: not at all Total score: 2 Depression Screening Interpretation: Negative Depression Screening Done: Yes 44700 - PHQ-9 Billing: Yes Source: Developed by Drs. Mateo Crockett, Yessi Ramos, Pineda Crowe and colleagues, with an educational [employer]oston from [employer]. Thrive Questionnaire Date Thrive assessed: 04/18/25 I am a: Patient What is your living situation today?: I have a steady place to live Within the past 12 months, did the food you bought not last and you didn't have the money to get more?: Often true Within the past 12 months, did you worry whether your food would run out before you got money to buy more?: Often true Do you have trouble paying for medicines?: No Do you have trouble getting transportation to medical appointments?: No Do you have trouble paying your heating and electricity bill?: No Do you have trouble taking care of your child, family member or friend?: No Do you have trouble with day-to-day activities such as bathing, preparing meals, shopping, managing finances, etc.?: No Are you currently unemployed and looking for a job?: No Are you interested in more education?: No Please select the resources that you would like help with: None Currently or been in a relationship where the following occur: No concerns reported THRIVE Score: 2 AUDIT C Alcohol Use Questionnaire (AUDIT-C) 1. How often do you have a drink containing alcohol?: 2-4 times a month 2. How many drinks containing alcohol do you have on a typical day when you are drinking?: 1 or 2 3. How often do you have six or more drinks on one occasion?: Never Total Score: 2 MARY-7 AMB Questionnaire MARY-7 Date MARY - 7 assessed: 12/02/24 Feeling nervous, anxious, or on edge: 0 = Not at all Not being able to stop or control worryin = Several days Worrying too much about different things: 0 = Not at all Trouble relaxin = Several days Being so restless that it is hard to sit still: 1 = Several days Becoming easily annoyed or irritable: 1 = Several days Feeling afraid as if something awful might happen: 0 = Not at all Total MARY-7 score (0-4 normal; 5-9 mild; 10-14 moderate; 15-21 severe): 4 Source: Developed by Drs. Mateo Crockett, Yessi Ramos, Pineda Crowe and colleagues, with an educational boston from [employer] [place]. MARY-7 Assessment Billing MARY-7 Assessment Tool: MARY-7 Assessment 67104 Review of Systems Const All systems reviewed & are unremarkable except as noted in HPI and below Card Denies chest pain at rest, Denies chest pain with activity, Denies edema, Denies irregular heart rhythm, Denies claudication, Denies dyspnea, Denies dyspnea on exertion, Denies orthopnea, Denies paroxysmal nocturnal dyspnea and Denies slow heart rate Resp Denies cough, Denies dyspnea and Denies dyspnea on exertion Musc Denies atrophy, Denies deformity and Denies limited range of motion Skin/Breast Denies bleeding lesions, Denies changing lesions and Denies rash Physical exam (Primary Care) Vital Signs: Last Vital Signs BP 132/78 04/18/25 13:27 BMI result Body Mass Index 30.4 Tobacco/Smoking Status: Tobacco use Status Tobacco use date assessed 12/02/24 04/18/25 13:34 Patient Tobacco Use Status Former Tobacco user 04/18/25 13:34 Tobacco use type Cigarette 04/18/25 13:34 e-Cigarette/Vaping Use Never Used 04/18/25 13:34 PHQ-9: PHQ-9 Score PHQ-9: Total score 2 04/18/25 13:34 Depression Screening Interpretation: Negative Thrive Assessment: Date of Thrive Assessment Date Thrive assessed 04/18/25 04/18/25 13:34 Currently or been in a relationship where the following occur: No concerns reported Resp Effort & Inspection: normal respiratory effort Auscultation: clear to auscultation bilaterally Cardio Jugular venous distension: no JVD Rate: regular rate Rhythm: regular rhythm Heart sounds: S1 normal heart sound present and S2 normal heart sound present Extrem General: Yes full ROM Coding Level of Care Code Est Pt Level 4 (10417) Complex EM visit Add On G2211 Diagnoses Essential hypertension I10 CAD (coronary artery disease) I25.10 Hyperlipidemia E78.5 Retinal artery occlusion H34.9 Restless leg syndrome G25.81 Additional Codes PHQ-9 - 68906 - PHQ-9 Billing: Yes ([id number]) MARY-7 Assessment Billing - MARY-7 Assessment Tool: MARY-7 Assessment 94203 ([id number]) Time Spent (min) 21 Assessment & Plan Assessment & Plan (1) Essential hypertension: Code(s): I10 - Essential (primary) hypertension Category: Medical (2) CAD (coronary artery disease): Comment: Nonobstructive by cardiac catheterization Code(s): I25.10 - Atherosclerotic heart disease of [place] coronary artery without angina pectoris Category: Medical (3) Hyperlipidemia: Code(s): E78.5 - Hyperlipidemia, unspecified Category: Medical (4) Retinal artery occlusion: Code(s): H34.9 - Unspecified retinal vascular occlusion Category: Medical (5) Restless leg syndrome: Code(s): G25.81 - Restless legs syndrome Category: Medical Plan Continue current meds. Repeat labs in 6 months. Contact retinologist. Start magnesium. Medications: New magnesium oxide 400 mg PO BEDTIME 30 tabs 6RF 30 days
[2025-04-18 13:27] VITALS: BP 132/78; BMI 30.4
== END 2025-04-18 13:52 | disposition home or self-care (01) ==
LOC: HO.HMCH 13:16
PROVIDERS: PCP Internal Medicine; Visit Provider Internal Medicine
DX: I10 Essential (primary) hypertension (principal); I25.10 Atherosclerotic heart disease of native coronary artery without angina pectoris; E78.5 Hyperlipidemia, unspecified; H34.9 Unspecified retinal vascular occlusion; G25.81 Restless legs syndrome

== ENCOUNTER → 2025-04-18 13:15 | Outpatient (BNVA) | payer MEDICARE, SELFPAY | PROVIDERS: PCP Internal Medicine; Visit Provider Internal Medicine | DX: I10 Essential (primary) hypertension (principal); I25.10 Atherosclerotic heart disease of native coronary artery without angina pectoris; E78.5 Hyperlipidemia, unspecified; H34.9 Unspecified retinal vascular occlusion; G25.81 Restless legs syndrome; Z13.31 Encounter for screening for depression | CPT/HCPCS: 96127; 99212 ==

== ENCOUNTER 2025-05-03 09:35 | Outpatient (AMB) | payer MEDICARE, SELFPAY ==
[2025-05-03 09:38] VITALS: BP 110/66; PULSE 70; BMI 30.2
--- NOTE | 2025-05-03 09:38 | MHC.OFFVIS ---
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 Allergies meperidine (Demerol) Allergy (Unknown, Verified 04/18/25 13:37) Unknown nitroglycerin (NITROGLYCERIN) Allergy (Unknown, Verified 04/18/25 13:37) HYPOTENSION, no reactions were documented Medication List - Last Reconciled 05/03/25 by Rene Diaz MD amlodipine 10 mg PO DAILY atorvastatin 40 mg PO DAILY carvedilol 25 mg PO BID clopidogrel 75 mg PO DAILY eluxadoline (Viberzi) 100 mg PO BID furosemide 20 mg PO DAILY hydrochlorothiazide 25 mg PO DAILY hydroxyzine HCl 50 mg PO BEDTIME loperamide (Imodium A-D) 2 mg PO Q6H PRN magnesium oxide 400 mg PO BEDTIME 30 days pramipexole 0.5 mg PO BID ramelteon 8 mg PO BEDTIME PRN HPI Comments Details: Erik comes for follow-up. He is still remains active. He is most concerned about the loss of vision in his left eye. Patient denies any exertional chest pain or shortness of breath. No orthopnea, PND, leg edema. He says blood pressure generally remains well controlled although when he gets stressed blood pressure spikes. He is ascending aortic aneurysm by last echocardiogram at 4.5 cm. Denies any chest pain. No prolonged palpitation irregular heartbeat. There has been no evidence of atrial fibrillation. 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 Mother Heart disease Brother CAD (coronary artery disease) Paternal Uncle Myocardial infarction Social History Housing: House Alcohol intake: current Alcohol intake frequency: a few times a week Alcohol type: beer and wine Patient Tobacco Use Status: Former Tobacco user Tobacco use type: Cigarette e-Cigarette/Vaping Use: Never Used Second Hand Smoke Exposure: No service: No Current occupational status: retired Cognitive needs: No Hearing needs: No Vision needs: No Review of Systems Const Denies chills, Denies fatigue, Denies fever(s), Denies frequent falls, Denies weakness, Denies weight gain and Denies weight loss ENT Denies dizziness Card Denies chest pain, Denies leg edema, Denies lightheadedness, Denies palpitations, Denies dyspnea, Denies dyspnea on exertion, Denies orthopnea and Denies other (loss of consciousness) Resp Denies cough, Denies dyspnea and Denies dyspnea on exertion GI Denies hematochezia and Denies change in stool character Musc Denies abnormal gait, Denies muscle weakness, Denies numbness, Denies radiating pain into limb and Denies tingling Neuro Denies abnormal gait, Denies dizziness, Denies frequent falls, Denies numbness, Denies tingling and Denies weakness Endo Denies fatigue and Denies palpitations Physical Exam Vital Signs: Last Vital Signs Pulse 70 05/03/25 09:38 BP 110/66 05/03/25 09:38 BMI result Body Mass Index 30.2 Const General: cooperative, comfortable, no acute distress, alert and awake Nutritional Appearance: overweight Orientation/consciousness: patient oriented x3 Neck Neck: Yes trachea midline, Yes supple and Yes no JVD Resp Effort & Inspection: normal respiratory effort Auscultation: clear to auscultation bilaterally Cardio Jugular venous distension: no JVD Palpation: normal PMI Rate: regular rate Rhythm: regular rhythm Heart sounds: S1 normal heart sound present, S2 normal heart sound present, no click, no gallops, no murmurs, no rubs and Other heart sounds present ( Soft S4 present) Skin General skin exam: no rashes or lesions noted Neuro General: patient oriented x3 and no focal motor deficits Extrem General: No clubbing, No cyanosis and Yes edema ( mild) Office Procedures EKG Details: EKG shows normal sinus rhythm with left axis deviation with LVH 44444-Iycdcagmunvcodjxc, Complete Assessment & Plan Assessment & Plan (1) Ascending aortic aneurysm: Code(s): I71.21 - Aneurysm of the ascending aorta, without rupture Category: Medical Plan: Ascending aortic aneurysm, moderately dilated. Follow-up echocardiogram near future. Management of ascending aortic aneurysm and pathophysiology was discussed. In his case most likely atherosclerotic in nature. He has no symptoms related to it. Symptoms of acute aortic syndrome was discussed. At this point time does not require surgical intervention. Continue monitor by echo on annual basis. Continue aggressive blood pressure control. Continue aggressive lipid modification which is well optimized. (2) CAD (coronary artery disease): Comment: Nonobstructive by cardiac catheterization Code(s): I25.10 - Atherosclerotic heart disease of [place] coronary artery without angina pectoris Category: Medical Plan: Diffuse vascular disease with nonobstructive CAD without any cardiac symptoms. Continue aggressive vascular risk factor modification. Currently on Plavix 75 mg dL. His blood pressure is currently well optimized on current therapy. Continue high-intensity statin therapy to target goal LDL which is well optimized at this point time. (3) Implantable loop recorder present: Comment: [employer]. Placed by Dr. Diaz on 04/04/2024. serial number [id number] Code(s): Z95.818 - Presence of other cardiac implants and grafts Category: Medical Plan: Implantable loop recorder in place with no evidence of atrial fibrillation. If there was no evidence of atrial fibrillation today's exam will pursue explantation. He is agreeable. Will follow up in the clinic otherwise in 1 year's time, sooner p.r.n.. Thank you for allowing me to partake in his care Orders: Orders CA echo transthoracic complete Today I71.21 - Aneurysm of the ascending aorta, without rupture Coding Level of Care Code Est Pt Level 4 (06237) Complex EM visit Add On G2211 Diagnoses Ascending aortic aneurysm I71.21 CAD (coronary artery disease) I25.10 Implantable loop recorder present Z95.818 CPT Codes EKG - CPT: 64389-Mrnnslvqfqqmfvoaz, Complete ([id number])
== END 2025-05-03 10:13 | disposition home or self-care (01) ==
LOC: HO.HCS 09:36
PROVIDERS: PCP Internal Medicine; Visit Provider Internal Medicine Cardiovascular Disease
DX: I71.21 Aneurysm of the ascending aorta, without rupture (principal); I25.10 Atherosclerotic heart disease of native coronary artery without angina pectoris; Z95.818 Presence of other cardiac implants and grafts
CPT/HCPCS: 93010; 99214; G2211

== ENCOUNTER → 2025-05-03 09:35 | Outpatient (BNVA) | payer MEDICARE, SELFPAY | PROVIDERS: PCP Internal Medicine; Visit Provider Internal Medicine Cardiovascular Disease | DX: I71.21 Aneurysm of the ascending aorta, without rupture (principal); I25.10 Atherosclerotic heart disease of native coronary artery without angina pectoris; Z95.818 Presence of other cardiac implants and grafts | CPT/HCPCS: 93005; 99212 ==

== ENCOUNTER 2025-05-08 08:51 | Outpatient (AMB) | payer MEDICARE, SELFPAY ==
--- NOTE | 2025-05-08 09:06 | MHC.OFFVIS ---
Vital Signs 05/08/25 09:06 Height 6 ft Intake Visit Reasons: 4 mnts Allergies meperidine (Demerol) Allergy (Unknown, Verified 05/08/25 09:06) Unknown nitroglycerin (NITROGLYCERIN) Allergy (Unknown, Verified 05/08/25 09:06) HYPOTENSION, no reactions were documented Medication List - Last Reconciled 05/08/25 by Radha Jarquin, WALTER amlodipine 10 mg PO DAILY atorvastatin 40 mg PO DAILY carvedilol 25 mg PO DAILY clopidogrel 75 mg PO DAILY eluxadoline (Viberzi) 100 mg PO BID furosemide 20 mg PO DAILY hydrochlorothiazide 25 mg PO DAILY hydroxyzine HCl 50 mg PO BEDTIME loperamide (Imodium A-D) 2 mg PO Q6H PRN magnesium oxide 400 mg PO BEDTIME 30 days pramipexole 0.5 mg PO BID ramelteon 8 mg PO BEDTIME PRN HPI Comments Details: Averaging about 2 hours of sleep at night. Nodding off during the day and will nap for about an hour. Sleep was better with ramelteon initially, was getting up to 4 hours/night. He has trouble initiating and maintaining sleep. He has apparently had multiple sleep studies, both at home and in-lab, without findings. Restless legs were okay, occasionally gets some jumping in his legs. Taking magnesium which seems to sleep. 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 Dizziness was still there, especially if he stood too fast. Off balance at times, no falls. No improvement in sleep with increased dose of temazepam, trouble falling asleep and staying asleep. He would fall asleep for about 1 hour, but would wake and could not fall back to sleep. Hydroxyzine was not helping as much as it did before, but sleep was even worse if he did not take it.? Had L ocular [place] in [place]2024, [place] [facility] [place] at [facility] [place]. 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 Little to no blood flow and will likely need eye removed. New glasses script helped with dizziness some. Still gets some lightheaded dizziness, worse when changing positions quickly. No ringing in ears or hearing loss. Following with cardiology, had EKG, echo, and traffic monitor specialist which was apparently okay. BP meds were adjusted and BP had come down some. Tried meclizine and vestibular therapy for dizziness symptoms in the past which did not help. Previously, he felt lightheaded dizziness when standing that would last a few minutes and would subside after walking. It was worse when sleep deprived. He also had different kind of dizziness with a spinning sensation when turning in bed sometimes. It could happen a few times, lasting 5-10 seconds, but was very disturbing. No history of head trauma. No ringing in the ears or hearing loss. 8+ year history of worsening insomnia with trouble falling asleep and staying asleep. He has tried multiple medications in the past. 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 Mother Heart disease Brother CAD (coronary artery disease) Paternal Uncle Myocardial infarction Social History Housing: House Alcohol intake: current Alcohol intake frequency: a few times a week Alcohol type: beer and wine Patient Tobacco Use Status: Former Tobacco user Tobacco use type: Cigarette e-Cigarette/Vaping Use: Never Used Second Hand Smoke Exposure: No service: No Current occupational status: retired Cognitive needs: No Hearing needs: No Vision needs: No Review of Systems Const Denies chills, Denies daytime sleepiness, Reports difficulty sleeping, Reports fatigue, Denies fever(s), Denies frequent falls, Denies headache(s), Denies increased appetite, Denies poor appetite, Denies snoring, Denies weakness, Denies weight gain and Denies weight loss ENT Denies vertigo, Reports dizziness, Denies headache(s) and Denies neck pain Card Denies chest pain at rest, Denies chest pain with activity, Denies syncope, Denies leg edema, Denies palpitations, Denies dyspnea and Denies dyspnea on exertion Resp Denies cough, Denies dyspnea, Denies dyspnea on exertion and Denies snoring GI Denies abdominal pain, Denies constipation, Denies heartburn, Denies diarrhea and Denies nausea Denies urinary frequency, Denies urinary incontinence and Denies urinary urgency Musc Reports abnormal gait (balance difficulty), Denies back pain, Denies myalgias, Denies arthralgias, Denies neck pain, Denies numbness and Denies tingling Neuro Reports abnormal gait (balance difficulty), Denies vertigo, Reports dizziness, Denies syncope, Denies frequent falls, Denies headache(s), Denies lack of coordination, Denies memory loss, Denies numbness, Denies Other visual disturbances, Reports restless legs, Denies seizure-like activity, Denies tingling, Denies paresthesias, Denies tremor(s) and Denies weakness Psych Denies anxiety, Denies depression, Denies auditory hallucinations, Denies memory loss and Denies visual hallucinations Endo Reports fatigue and Denies palpitations Physical Exam Const Other: General Appearance:? normal, in no acute distress. Heart:? S1, S2 normal, no murmurs. Lungs:? clear anteriorly and posteriorly. Musculoskeletal:? normal. Extremities:? no edema. Psych:? alert, oriented, cognitive function intact, cooperative with exam. Neuro Other: Abnormal Neurological Findings:?Reduced L visual field. Mental Status: alert and oriented X 3. Normal attention, orientation, memory, and affect. Cranial Nerves: Pupils are equal, round, and reactive to light. External ocular muscles are intact. Reduced L visual field, no ptosis. Face is symmetrical, no facial weakness or droop. Facial sensations are normal. Tongue protrudes in midline. Palate elevates symmetrically. Shoulder shrugging is normal Motor Examination: Normal muscle tone, bulk and strength. No atrophy or fasciculations. No drift of the extended upper extremities. DTR 2+. Plantars are flexor. Straight Leg Raisin degrees. Sensory Exam: Normal light touch, temperature, pinprick, vibration, and joint-position sensations. Rhomberg sign is absent. Coordination: No ataxia. No titubation. Osbrch-pd-mbli, tyzq-tvkd-zlem test, and rapid alternating movements were normal. Gait Exam: Within normal limits. Cerebellar Signs: Norhdb-qa-fqvo and dwtn-sb-kqhu is normal. No dysdiadochokinesia. Extrapyramidal System: No tremor, rigidity with normal facial expressions. No bradykinesia. No bradyphrenia. Normal arm swing and posture. No propulsion or retropulsion. Speech: Normal. No dysphasia or dysarthria. Results Reviewed Results Reviewed: 07/01 MRI brain shows minor possible chronic bilateral cerebellar lacunar infarcts, otherwise normal. MRI brain 12/2023: Chronic bilateral cerebellar lacunar infarcts Assessment & Plan Assessment & Plan (1) Insomnia: Code(s): G47.00 - Insomnia, unspecified Category: Medical Qualifiers: Insomnia type: unspecified Qualified Code(s): G47.00 - Insomnia, unspecified Plan: He has tried multiple medications sleep including Ambien, Lunesta, triazolam, amitriptyline, trazodone, temazepam, gabapentin, hydroxyzine, and ramelteon without improvement. He apparently had multiple sleep studies (at home and in-lab) without findings, however reports not available for review at this time and he was not interested in repeat testing at this time. Referral to sleep medicine placed. Sleep hygiene reviewed, avoid napping during day. Continue current medications for now. Continue ramelteon 8mg 1 tablet at bedtime as needed for sleep Continue hydroxyzine 50mg 1 tablet at bedtime (2) Restless leg syndrome: Code(s): G25.81 - Restless legs syndrome Category: Medical Plan: Continue pramipexole dihydrochloride 0.5mg 2 tablets at bedtime (3) Dizziness: Code(s): R42 - Dizziness and giddiness Category: Medical (4) Cerebral microvascular disease: Code(s): I67.89 - Other cerebrovascular disease Category: Medical Plan: Control blood pressure. Continue statin and Plavix. Plan Meds tried: Ambien, Lunesta, Triazolam, Amitriptyline, Trazodone, Temazepam, gabapentin, hydroxyzine, ramelteon Orders: Referrals Sleep Medicine Referral G47.00 - Insomnia, unspecified Coding Level of Care Code Est Pt Level 4 (17823) Diagnoses Insomnia, unspecified type G47. Insomnia type: unspecified Restless leg syndrome G25.81 Dizziness R42 Cerebral microvascular disease I67.89
== END 2025-05-08 09:28 | disposition home or self-care (01) ==
LOC: HO.HSM 08:54
PROVIDERS: PCP Internal Medicine; Visit Provider Registered Nurse
DX: G47.00 Insomnia, unspecified (principal); G25.81 Restless legs syndrome; R42 Dizziness and giddiness; I67.89 Other cerebrovascular disease
CPT/HCPCS: 99214

== ENCOUNTER → 2025-05-08 08:51 | Outpatient (BNVA) | payer MEDICARE, SELFPAY | PROVIDERS: PCP Internal Medicine; Visit Provider Registered Nurse | DX: G25.81 Restless legs syndrome (principal); G47.00 Insomnia, unspecified; R42 Dizziness and giddiness; I67.89 Other cerebrovascular disease | CPT/HCPCS: 99212 ==

== ENCOUNTER 2025-05-10 07:43 | Outpatient (REF) | payer MEDICARE, SELFPAY ==
--- NOTE | 2025-05-09 15:38 | MHC.SHP ---
Pre-Procedural Eval Section A - 24 Hr Update-Section A only Date of Service: 05/09/25 The patient is an INPATIENT: No Changes since office visit: Yes Patient answered all questions; No Cold of Flu in the past 2 weeks, No New Medical Problems and No Changes in Medication The patient has been examined within 24 hours of the surgical procedure. The History & Physical has been completed within 30 days and I have reviewed it.: Yes Section B - Complete if H&P > 30 days Chief Complaint: Presence of other cardiac implants and grafts Allergies: Allergies Allergy/AdvReac Type Severity Reaction Status Date / Time meperidine (Demerol) Allergy Unknown Unknown Verified 05/08/25 09:06 nitroglycerin (NITROGLYCERIN) Allergy Unknown HYPOTENSION, Verified 05/08/25 09:06 no reactions were documented Plan I have reviewed the history and physical and performed a pertinent physical examination on my patient. No changes have occurred unless specified. Time Spent With Patient Time: Total time managing care of this patient today ____ minutes.
[2025-05-10 08:08] VITALS: BP 156/79; PULSE 70; RESP 18; TEMP 36.1; O2SAT 95
--- NOTE | 2025-05-10 10:23 | PM.OP ---
Brief Operative Note Date of Service: 05/10/25 Pre-op diagnosis: Implantable loop recorder in place Post-op diagnosis: same Procedure: Removal of implantable loop recorder Implants: After obtaining full consent patient was brought to the minor surgery suite. He was laid supine on the operating table. Patient is precordial area was then prepped and draped in a sterile fashion. Patient was then given 2% lidocaine with epinephrine intradermally and subcutaneously around the head of the implantable loop recorder that was identified by palpation. A small incision was then made at the site. After some blunt dissection the implantable loop recorder was removed with help of a Marlin forcep. The wound was then closed with Steri-Strips and pressure dressing applied. Surgeon: Rene Diaz MD Anesthesia: local Was an Senior Manufacturing Test Engineer used for this Procedure?: No Estimated blood loss (mL): 5 Pathology: none sent Condition: stable Disposition: same day
== END 2025-05-10 07:44 | disposition home or self-care (01) ==
LOC: HO.MS 07:43
PROVIDERS: PCP Internal Medicine; Visit Provider Internal Medicine Cardiovascular Disease
PROC: (CPT 33286; principal; 2025-05-10 08:30)
DX: Z95.818 Presence of other cardiac implants and grafts (principal)
CPT/HCPCS: 33286; J2004

== ENCOUNTER → 2025-05-10 07:43 | Outpatient (BNV) | payer MEDICARE, SELFPAY | PROVIDERS: PCP Internal Medicine; Visit Provider Internal Medicine Cardiovascular Disease | DX: Z45.09 Encounter for adjustment and management of other cardiac device (principal) | CPT/HCPCS: 33286 ==

== ENCOUNTER 2025-05-24 13:48 | Outpatient (AMB) | payer MEDICARE, SELFPAY ==
--- NOTE | 2025-05-24 14:17 | A.OFFVIS_ITS ---
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 No witnessed apnea,gasping,snoring. Patient goes to bed around 11 and doesn't sleep much. Hard time falling asslep and staing asleep. 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 He had 2HSTs and 2 in-lab PSGs over 5 years ago, were inconclusive due to insomnia. He goes to bed at 11pm and has trouble falling asleep and staying asleep. Snores loudly denies chokes, and gasping at night. He has insomnia and tries to wean himself off of medications then takes them every other day. Denies jaw pain, morning headaches. He takes ramelteon 8mg, Pramipexole 0.5mg 2x a night for RLS symptoms, and this also helps with his mood. He has anxiety and he takes Hydroxyzine 50mg po once at bedtime. His memory is okay, he has senior moments, will forget names, addresses, and routines, has difficulty with word recall, gets lost in conversations. 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 Denies smoking and drinks socially, one glass a wine or cocktail on a hot day. He drinks plenty of water and stays hydrated, his diet is pretty clean, limits salt. BP is now well managed 138/70. He has pitting edema. L. carotid artery stenosis and L. 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 Dr. Butcher Opthamology, he thought it was a stroke due to necrosis. Denies falls, gait or balance issues. 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 Mother Heart disease Brother CAD (coronary artery disease) Paternal Uncle Myocardial infarction Social History Housing: House Alcohol intake: current Alcohol intake frequency: a few times a week Alcohol type: beer and wine Patient Tobacco Use Status: Former Tobacco user Tobacco use type: Cigarette e-Cigarette/Vaping Use: Never Used Second Hand Smoke Exposure: No service: No Current occupational status: retired Cognitive needs: No Hearing needs: No Vision needs: No Physical Exam Vital Signs: Last Vital Signs Pulse 77 05/24/25 14:18 BP 138/70 05/24/25 14:18 Pulse Ox 94 05/24/25 14:18 Oxygen Delivery Method Room Air 05/24/25 14:18 BMI result Body Mass Index 30.2 Const General: cooperative, comfortable and no acute distress Orientation/consciousness: patient oriented x3 HEENT Face and sinus: Yes face symmetric Throat: Yes other (mallampti score 4) Eyes Pupils: Equal, round and reactive pupils present Resp Effort & Inspection: normal respiratory effort and able to speak in complete sentences Neuro General: patient oriented x3 and moves all extremities Cranial nerves: Yes Facial sensation intact/muscles of mastication intact, Yes Equal, round and reactive pupils present, Yes Normal accommodation reflex present, Yes Normal facial strength present, Yes Midline tongue present, Yes Ability to bilaterally rotate head present and Yes Ability to bilaterally elevate shoulders present Motor exam (neuro): 5/5 motor strength present throughout and Normal motor muscle tone present throughout Deep tendon reflexes (DTR's): Right triceps reflex intensity grade: 2+, Left triceps reflex intensity grade: 2+, Rt Biceps (C5, C6): 2+, Left biceps reflex intensity grade: 2+, Right brachioradialis reflex intensity grade: 2+, Left brachioradialis reflex intensity grade: 2+, Right patellar reflex intensity grade: 2+, Left patellar reflex intensity grade: 2+, Right ankle reflex intensity grade: 2+ and Left ankle reflex intensity grade: 2+ Psych Appearance: grossly normal Thought process: Normal thought process present Thought content: Normal thought content present Assessment & Plan Assessment & Plan (1) Excessive daytime sleepiness: Code(s): G47.19 - Other hypersomnia Category: Medical Plan HST r/o inessa Labs r/o deficiencies Orders: Orders Ferritin Today G47.19 - Other hypersomnia Homocysteine Today G47.19 - Other hypersomnia, G47.9 - Sleep disorder, unspecified, R53.83 - Other fatigue Vitamin B12 and Folate Today G47.19 - Other hypersomnia Vitamin D 25-OH Total Today G47.19 - Other hypersomnia Methylmalonic Acid Today G47.19 - Other hypersomnia, G47.9 - Sleep disorder, unspecified, R53.83 - Other fatigue Magnesium Today G47.19 - Other hypersomnia Lipid Panel with Reflex Today G47.19 - Other hypersomnia RT home sleep study Today G47.19 - Other hypersomnia Complete Blood Count no Diff Today G47.19 - Other hypersomnia Comprehensive Met. Panel Today G47.19 - Other hypersomnia Hemoglobin A1c Today G47.19 - Other hypersomnia TSH reflex Free T4 Today G47.19 - Other hypersomnia Patient Instructions: Sleep Hygiene provided: set a scheduled bedtime and wake time to help regulate the circadian rhythm and balance the release of pituitary hormones. Sleep in a dark room, temperatures below 68 degrees, and no devices n bed. Limit caffeinated products 6 hours prior to bed, and limit fluids 2-4 hours prior to bed. Gentle night yoga, diffusing essential oils, and playing soft music can be relaxing. Coding Level of Care Code New Pt Level 4 (88331) Diagnoses Excessive daytime sleepiness G47.19 Sleep Questionnaire Difficulty falling asleep: Yes Difficulty staying asleep?: Yes (5-6x) Number of arousals: bathroom / furosemide Snoring: Yes Witnessed apneas: No Gasping arousals: No Nocturia: Yes GERD: No Vivid dreams: Yes (night terrors) Acting out dreams: No Abnormal behavior in sleep: Yes (sleep talking) Abnormal movements in sleep: No Morning headaches: Yes (daily headaches dull tylenol otc) Excessive daytime sleepiness: Yes Daytime naps: Yes (20 min) Restless legs: Yes Hallucinations: No Sleep paralysis: No Drop attacks: No Sleep Study: Yes CPAP: No
[2025-05-24 14:18] VITALS: BP 138/70; PULSE 77; O2SAT 94; BMI 30.2
== END 2025-05-24 15:12 | disposition home or self-care (01) ==
LOC: HO.HSMS 13:49
PROVIDERS: PCP Internal Medicine; Visit Provider Physician Assistant Medical
DX: G47.19 Other hypersomnia (principal)
CPT/HCPCS: 99204

== ENCOUNTER → 2025-05-24 13:48 | Outpatient (BNVA) | payer MEDICARE, SELFPAY | PROVIDERS: PCP Internal Medicine; Visit Provider Physician Assistant Medical | DX: G47.19 Other hypersomnia (principal); G47.9 Sleep disorder, unspecified; R53.83 Other fatigue | CPT/HCPCS: 99202 ==

== ENCOUNTER → 2025-06-01 23:59 | Outpatient (BNV) | payer MEDICARE, SELFPAY ==
--- NOTE | 2025-06-08 12:43 | A.OFFVIS_ITS ---
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 Mother Heart disease Brother CAD (coronary artery disease) Paternal Uncle Myocardial infarction Social History Housing: House Alcohol intake: current Alcohol intake frequency: a few times a week Alcohol type: beer and wine Patient Tobacco Use Status: Former Tobacco user Tobacco use type: Cigarette e-Cigarette/Vaping Use: Never Used Second Hand Smoke Exposure: No service: No Current occupational status: retired Cognitive needs: No Hearing needs: No Vision needs: No Office Procedures Cardiac Device Check Cardiac Device Check Details: Remote implantable loop recorder report generated 06/01/2025. No pauses or tachyarrhythmias noted. Occasional PVCs noted at 0.7% [id number] Cardiac Interrogation, subcut cardiac rhythm monitor Procedure code (CPT) selection complete Assessment & Plan Assessment & Plan (1) Implantable loop recorder present: Comment: [employer]. Placed by Dr. Diaz on 04/04/2024. serial number [id number] Code(s): Z95.818 - Presence of other cardiac implants and grafts Category: Medical Plan: See above Coding Level of Care Code Procedure Only Diagnoses Implantable loop recorder present Z95.818 CPT Codes Cardiac Device Check - Cardiac Device 16: [id number] Cardiac Interrogation, subcut cardiac rhythm monitor ([id number])
== END ==
PROVIDERS: Visit Provider Internal Medicine Cardiovascular Disease
DX: I49.3 Ventricular premature depolarization (principal); Z95.818 Presence of other cardiac implants and grafts
CPT/HCPCS: 93298

== ENCOUNTER → 2025-06-07 07:44 | Outpatient (REF) | payer MEDICARE, SELFPAY ==
--- NOTE | 2025-06-07 07:46 | CA_ITS ---
Transthoracic Echocardiogram Patient (Last, First, Middle): Erik Jung F Gender: Male Date of : 1950 Age: 75 Procedure Date: 06/07/2025 Procedure Type: Transthoracic Echocardiogram Location: OP Height: 182.88 cm Weight: 100.7 kg BSA: 2.23 m2 Heart Rate: 65 bpm BP: 138 / 70 mmHg Pump Operator Byproducts: SB Referring MD: Rene Diaz MD Symptoms: I71.21 - Aneurysm of the ascending aorta, without rupture Study Quality: Adequate ECG Rhythm: Sinus Conclusions: - The left ventricular systolic function is normal. The calculated ejection fraction is 66% by biplane method. - The basal inferolateral segment is akinetic. - No obvious valvular pathology seen on this study. - There is moderate dilatation of the ascending aorta measuring 4.50 cm. Findings Left Ventricle Normal left ventricular cavity size. The left ventricular systolic function is normal. The calculated ejection fraction is 66% by biplane method. There is no evidence of regional wall motion abnormalities. Evidence suggests grade I (mild) diastolic dysfunction. There is severe septal asymmetric hypertrophy. Wall Motion Rest Echo Findings The basal inferolateral segment is akinetic. Right Ventricle Mildly increased right ventricular cavity size. There is normal right ventricular systolic function. Atria Both atria are normal in size. There is a mobile atrial septum noted. Interatrial shunt cannot be excluded. Aortic Valve There is a normal trileaflet aortic valve. There is no aortic valve stenosis. There is no aortic valve regurgitation. Mitral Valve The mitral valve appears normal. There is trace mitral valve regurgitation. There is no mitral valve stenosis. Pulmonic Valve The pulmonic valve is likely normal. Tricuspid Valve There is no tricuspid valve regurgitation. Tricuspid regurgitation envelope is inadequate for calculation of right ventricular systolic pressure. Great Vessels The sinuses of valsalva and aortic arch are normal in size. There is moderate dilatation of the ascending aorta measuring 4.50 cm. Venous The inferior vena cava is normal in size and collapses greater than 50% with inspiration. Pericardium/Pleural There is no evidence of pericardial effusion. Prior Study Comparison No significant change compared to prior study dated: 04/19/2024. Recommendations, Care & Conclusions No obvious valvular pathology seen on this study. Measurements 2D Linear Measurements IVSd: 1.75 0.6-0.9/0.6-1.0 cm LVIDd: 5.73 3.9-5.3/4.2-5.9 cm LVIDd Index: 2.57 2.4-3.2/2.2-3.1 cm/m2 LVIDs: 4.21 2.0-3.6 cm LVPWd: 0.97 0.7-1.1 cm LA Diam: 4.60 2.7-3.8/3.0-4.0 cm LAIDs Index: 2.06 1.5-2.3 cm/m2 LV Mass: 432.27 67-162/88-224 g LV Mass Index: 193.84 43-95/49-115 g/m2 LVOT Diam: 2.30 3.0+(-)1.3 cm 2D Systolic Function EF 4C: 62.80 >55% EF 2C: 69.00 >55% EF BiP: 66.20 >55% Mitral Valve MV Pk E: 0.48 MV PK A: 0.62 MV Decel Time: 264.00 E/A: 0.80 E'Lateral: 2.94 E'Medial: 2.83 E/E' Med: 16.80 E/E' Lat: 16.20 PHT: 77.00 MVA PHT: 2.86 Decel Moore: 1.80 Aortic Valve AoV Pk Rojas: 1.24 AoV Pk Grad: 6.00 PRASHANT: 4.41 LVOT LVOT Pk Rojas: 1.24 LVOT Mn Rojas: 0.85 LVOT VTI: 0.25 LVOT Pk Grad: 6.00 LVOT Mn Grad: 4.00 LVOT Diam: 2.30 LVOT Area: 4.15 Diastolic Function MV Pk E: 0.48 MV Pk A: 0.62 E/A: 0.80 E'Medial: 2.83 E/E' Med: 16.80 E' Laterial: 2.94 E/E' Lat: 16.20 Right Ventricle TAPSE (mm): 23.40 TVS' Rojas: 15.70 Tricuspid Valve RA Press: 3.00 Great Vessels Aorta Sinus of Valsalva: 4.00 2.0-3.5 cm Ao Asc: 4.50 2.1-3.4 cm Ao Arch: 3.20 Ao Desc: 2.90 Pulmonary Veins Pulm Vein S/D 1.70 Pulmonary Valve PV Pk Rojas: 1.41 Peak PV Grad: 8.00 Updated in Other Vendor System with Status of Final Ravinder Cornell MD electronically signed on 06/09/2025 8:58:08 AM with status of Final
== END ==
LOC: HO.CARD 07:44
PROVIDERS: Visit Provider Internal Medicine Cardiovascular Disease
DX: I71.21 Aneurysm of the ascending aorta, without rupture (principal)
CPT/HCPCS: 93306

== ENCOUNTER → 2025-06-07 07:46 | Outpatient (BNV) | payer MEDICARE, SELFPAY | PROVIDERS: Visit Provider Internal Medicine | DX: I42.2 Other hypertrophic cardiomyopathy (principal); I71.21 Aneurysm of the ascending aorta, without rupture | CPT/HCPCS: 93306 ==

== ENCOUNTER 2025-07-12 08:41 | Outpatient (AMB) | payer MEDICARE, SELFPAY ==
[2025-07-12 09:08] VITALS: BP 129/82; PULSE 80; BMI 27.8
--- NOTE | 2025-07-12 09:08 | A.OFFVIS_ITS ---
Vital Signs 07/12/25 09:08 Height 6 ft Weight 205 lb 0.478 oz BMI 27.8 BP 129/82 Blood Pressure Location Lt brachial Position Sitting Pulse 80 Intake Visit Reasons: IBS-D Intake Note: Erik presents to in office visit in follow up of IBS-D CC: Patient states that he has been doing well. He has been walking and eating better has lost weight and states he is feeling a lot better. 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 Mother Heart disease Brother CAD (coronary artery disease) Paternal Uncle Myocardial infarction Social History Housing: House Alcohol intake: current Alcohol intake frequency: a few times a week Alcohol type: beer and wine Patient Tobacco Use Status: Former Tobacco user Tobacco use type: Cigarette e-Cigarette/Vaping Use: Never Used Second Hand Smoke Exposure: No service: No Current occupational status: retired Cognitive needs: No Hearing needs: No Vision needs: No Coding
--- NOTE | 2025-07-12 09:08 | MHC.OFFVIS ---
Vital Signs 07/12/25 09:08 Height 6 ft Weight 205 lb 0.478 oz BMI 27.8 BP 129/82 Blood Pressure Location Lt brachial Position Sitting Pulse 80 Intake Visit Reasons: IBS-D Allergies meperidine (Demerol) Allergy (Unknown, Verified 07/12/25 09:19) Unknown nitroglycerin (NITROGLYCERIN) Allergy (Unknown, Verified 07/12/25 09:19) HYPOTENSION, no reactions were documented HPI HPI IBS-D: Details: Assessment & Plan (1) Small intestinal bacterial overgrowth (SIBO), hydrogen subtype: Code(s): K63.8211 - Small intestinal bacterial overgrowth, hydrogen-subtype Category: Medical (2) Irritable bowel syndrome with diarrhea: Code(s): K58.0 - Irritable bowel syndrome with diarrhea Category: Medical Plan He is happy using imodium every day, less expensive than Viberzi. 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 He did have some carotid stenosis. ROV 6 mos. as he wants to continue with our services. Medications: New loperamide (Imodium A-D) 2 mg PO Q6H PRN 90 caps 6RF loose stools K58.0 - Irritable bowel syndrome with diarrhea TODAY'S VISIT WE NEED TO DISCUSS REPEAT colonoscopy. 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 Mother Heart disease Brother CAD (coronary artery disease) Paternal Uncle Myocardial infarction Social History (Reviewed 07/12/25 @ 09:19 by Tracey Smalls [facility]) Housing: House Alcohol intake: current Alcohol intake frequency: a few times a week Alcohol type: beer and wine Patient Tobacco Use Status: Former Tobacco user Tobacco use type: Cigarette e-Cigarette/Vaping Use: Never Used Second Hand Smoke Exposure: No service: No Current occupational status: retired Cognitive needs: No Hearing needs: No Vision needs: No Review of Systems Const Denies fatigue, Denies fever(s), Denies night sweats, Denies poor appetite and Reports weight loss ENT Reports Normal hearing present, Denies dental pain, Denies dysphagia, Denies hearing loss, Denies mouth pain, Denies odynophagia, Denies throat swelling, Denies tongue swelling and Reports other (Dentition adequate) Card Reports no additional complaints Resp Reports no additional complaints GI Details: Denies abdominal pain, Denies melena, Denies bloating, Denies hematochezia, Denies constipation, Denies GI cramping, Denies dysphagia, Denies excessive flatus, Denies early satiety, Denies heartburn, Denies diarrhea, Reports loose stools, Denies nausea, Denies odynophagia, Denies vomiting and Denies hematemesis Skin/Breast Denies pruritus, Denies lesions, Denies rash and Denies jaundice Neuro Reports Normal hearing present and Denies Abnormal speech present Endo Denies fatigue Aller/Immun Denies throat swelling and Denies tongue swelling Physical Exam Vital Signs: Last Vital Signs Pulse 80 07/12/25 09:08 BP 129/82 07/12/25 09:08 BMI result Body Mass Index 27.8 Const General: cooperative, no acute distress, well developed and well groomed Nutritional Appearance: well nourished and overweight Orientation/consciousness: oriented to person, oriented to place and oriented to time Limitations: No language barrier HEENT Head: Yes normocephalic and Yes atraumatic Eyes General: appearance normal, both eyes and all related structures Pupils: Equal, round and reactive pupils present Neck Neck: Yes normal visual inspection and Yes no lymphadenopathy Thyroid: Thyroid normal Resp Effort & Inspection: normal respiratory effort and able to speak in complete sentences Auscultation: clear to auscultation bilaterally Cardio Rate: regular rate Rhythm: regular rhythm Heart sounds: Normal, physiologic split S2 sound present Peripheral pulses: radial pulses present and posterior tibial pulses present GI Inspection: No distended, No Abdominal panniculus present and Yes obesity Palpation (GI): Soft to palpation, nontender, no guarding, not rigid and No hepatosplenomegaly present Percussion: Yes normal to percussion Auscultation: normal bowel sounds Rectal Exam - Male: Yes deferred Skin General skin exam: no rashes or lesions noted, turgor normal, skin not dry, no jaundice, No spider nevi and no striae Rashes: no rashes Nails: normal Neuro General: oriented to person, oriented to place and oriented to time Cranial nerves: Yes Equal, round and reactive pupils present and Yes Normal hearing present Speech: No Abnormal speech present Extrem General: Yes normal to inspection, No clubbing, No cyanosis and No edema Psych Appearance: grossly normal and well kempt Mental Status: mental status grossly normal Speech and movement: Normal speech and movement present Affect: normal affect Attitude: cooperative Thought process: Normal thought process present and not confabulating Thought content: Normal thought content present Insight: Good insight present (Psych) Judgement: Good judgement present (Psych) Assessment & Plan Assessment & Plan (1) Irritable bowel syndrome with diarrhea: Code(s): K58.0 - Irritable bowel syndrome with diarrhea Category: Medical (2) Tubular adenoma of colon: Comment: TVA 07/2023 scope repeat in 1 year Code(s): D12.6 - Benign neoplasm of colon, unspecified Category: Medical (3) Tubulovillous adenoma of colon: Comment: 07/2023 scope repeat in 1 year Code(s): D12.6 - Benign neoplasm of colon, unspecified Category: Medical (4) Pre-op examination: Code(s): Z01.818 - Encounter for other preprocedural examination Category: Medical Plan - The patient is a 75-year-old male presenting for follow-up on IBS-D. - Reports significant weight loss achieved through portion control and increased physical activity, aided by familial support and competitive motivation. - his symptoms are well controlled by taking 2 Viberzi a day. He also feels that his dietary changes have helped. - Improved symptoms attributed to a diet adjustment toward more fish intake, with potential concerns about excessive mercury exposure noted humorously by the patient. He is agreeable to repeat colonoscopy due to his tubulovillous adenoma in 2022. There are no prior problems with anesthesia or sedation. He denies any cardiac or respiratory problems. There are no infectious disease problems. I will see him again in 6 months and of course after his colonoscopy. Orders: Orders Complete Blood Count Auto Diff Today Z01.818 - Encounter for other preprocedural examination Comprehensive Met. Panel Today Z01.818 - Encounter for other preprocedural examination Referrals GI Procedure Notification D12.6 - Benign neoplasm of colon, unspecified Medications: New sodium,potassium,mag sulfates 17.5-3.13-1.6 gram (Suprep Bowel Prep Kit) 480 mL orally; FOR COLONOSCOPY PREP 354 mL 0RF Refilled eluxadoline (Viberzi) must administer with a meal/food 100 mg PO BID 60 tabs 5RF K58.0 - Irritable bowel syndrome with diarrhea Coding Level of Care Code Est Pt Level 4 (88039) Diagnoses Irritable bowel syndrome with diarrhea K58.0 Tubular adenoma of colon D12.6 Tubulovillous adenoma of colon D12.6 Pre-op examination Z01.818 Time Spent (min) 36
== END 2025-07-12 09:40 | disposition home or self-care (01) ==
LOC: HO.HGI 08:42
PROVIDERS: PCP Internal Medicine; Visit Provider Nurse Practitioner
DX: K58.0 Irritable bowel syndrome with diarrhea (principal); Z01.818 Encounter for other preprocedural examination; Z12.11 Encounter for screening for malignant neoplasm of colon; Z86.0101 Personal history of adenomatous and serrated colon polyps
CPT/HCPCS: 99214

== ENCOUNTER → 2025-07-12 08:41 | Outpatient (BNVA) | payer MEDICARE, SELFPAY | PROVIDERS: PCP Internal Medicine; Visit Provider Nurse Practitioner | DX: Z01.818 Encounter for other preprocedural examination (principal); K58.0 Irritable bowel syndrome with diarrhea; D12.6 Benign neoplasm of colon, unspecified | CPT/HCPCS: 99212 ==

== ENCOUNTER → 2025-08-09 09:36 | Outpatient (REF) | payer MEDICARE, SELFPAY | LOC: HO.SL 09:36 | PROVIDERS: PCP Internal Medicine; Visit Provider Physician Assistant Medical | DX: G47.19 Other hypersomnia (principal) | CPT/HCPCS: 95806 ==

== ENCOUNTER → 2025-08-09 12:20 | Outpatient (BNV) | payer MEDICARE, SELFPAY | PROVIDERS: PCP Internal Medicine; Visit Provider Internal Medicine | DX: G47.33 Obstructive sleep apnea (adult) (pediatric) (principal) | CPT/HCPCS: 95806 ==

== ENCOUNTER 2025-08-29 08:48 | Outpatient (AMB) | payer MEDICARE, SELFPAY ==
--- NOTE | 2025-08-29 09:00 | MHC.OFFVIS ---
Vital Signs 08/29/25 09:01 Height 6 ft Weight 196 lb 4 oz BMI 26.6 BP 112/80 Blood Pressure Location Rt brachial Position Sitting Pulse 78 Pulse Source Pulse Oximeter Pulse Oximetry (%) 96 Oxygen Delivery Method Room Air Intake Visit Reasons: 3 mo follow up (CONF.) Intake Note: Patient presents follow up INESSA. No Labs. HST in chart(AHI-5, Supine AHI-18, [place]-78%. APAP 5-20cm). 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 HST AHI 5hr supine AHI 18/hr and O2 Nadirs to 78%. He had 2HSTs and 2 in-lab PSGs over 5 years ago, were inconclusive due to insomnia. He goes to bed at 11pm and has trouble falling asleep and staying asleep. Snores loudly denies choking, and gasping for air. He has insomnia and is tapering off of his medications, however will take them every other day due to his twitchy and active legs. He takes Pramipexole 0.5mg 2x a night for RLS and this also helps with the discomfort in his legs. He has has improved sleep and is less anxious when he takes Hydroxyzine 50mg po at bedtime. His memory is okay, he has senior moments, will forget names, addresses, and routine tasks, he has difficulty with word recall, gets lost in conversations. 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 Denies smoking and drinks socially, one glass a wine or cocktail on a hot day. He drinks plenty of water and stays hydrated, his diet is pretty clean, limits salt. He has pitting edema. L. carotid artery stenosis and L. 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 is being followed by Dr. But[facility], d/t stroke. He Denies falls, gait or balance issues, morning headaches, acid reflux and parasomnias. [facility] Medical History Pre-op examination Insomnia Cerebral microvascular disease Extrapyramidal and movement disorder, unspecified Restless leg syndrome Implantable loop recorder present Physical exam Physical exam Hyperlipidemia CAD (coronary artery disease) Hypertension Surgical History Hx of cardiac catheterization Hx of colonoscopy History of esophagogastroduodenoscopy (EGD) History of surgery H/O rectal polypectomy Family History Father No problems noted. Mother Heart disease Brother CAD (coronary artery disease) Paternal Uncle Myocardial infarction Social History Housing: House Alcohol intake: current Alcohol intake frequency: a few times a week Alcohol type: beer and wine Patient Tobacco Use Status: Former Tobacco user Tobacco use type: Cigarette e-Cigarette/Vaping Use: Never Used Second Hand Smoke Exposure: No service: No Current occupational status: retired Cognitive needs: No Hearing needs: No Vision needs: No Physical Exam Vital Signs: Last Vital Signs Pulse 78 08/29/25 09:01 BP 112/80 08/29/25 09:01 Pulse Ox 96 08/29/25 09:01 Oxygen Delivery Method Room Air 08/29/25 09:01 BMI result Body Mass Index 26.6 Const General: cooperative, comfortable and no acute distress Orientation/consciousness: patient oriented x3 HEENT Face and sinus: Yes face symmetric Throat: Yes other (mallampti score 4) Resp Effort & Inspection: normal respiratory effort and able to speak in complete sentences Neuro Other: 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 General: patient oriented x3 and moves all extremities Cranial nerves: Yes Facial sensation intact/muscles of mastication intact, Yes Normal facial strength present, Yes Midline tongue present, Yes Ability to bilaterally rotate head present and Yes Ability to bilaterally elevate shoulders present Gait exam (Neuro): Antalgic gait present Motor exam (neuro): Abnormal motor strength present and Abnormal muscle tone present Deep tendon reflexes (DTR's): Right triceps reflex intensity grade: 2+, Left triceps reflex intensity grade: 2+, Rt Biceps (C5, C6): 2+, Left biceps reflex intensity grade: 2+, Right brachioradialis reflex intensity grade: 2+, Left brachioradialis reflex intensity grade: 2+, Right patellar reflex intensity grade: 2+ and Left patellar reflex intensity grade: 2+ Psych Appearance: well kempt Speech and movement: Slowed movement present (Neuro) Thought process: Normal thought process present Thought content: Normal thought content present Results Reviewed Results Reviewed: HST AHI 5hr supine AHI 18/hr and O2 Nadirs to 78%. CT HEAD: No acute intracranial hemorrhage or territorial loss of wells-white differentiation. CTA NECK: The right vertebral artery origin is obscured by motion and underlying high-grade stenosis cannot be excluded. Calcified and noncalcified atherosclerosis in the right carotid bulb with less than 50% luminal narrowing. CTA HEAD: No proximal vessel occlusion or high-grade stenosis. Assessment & Plan Assessment & Plan (1) INESSA (obstructive sleep apnea): Code(s): G47.33 - Obstructive sleep apnea (adult) (pediatric) Category: Medical (2) Periodic limb movements of sleep: Code(s): G47.61 - Periodic limb movement disorder Category: Medical (3) Restless leg syndrome: Code(s): G25.81 - Restless legs syndrome Category: Medical (4) Excessive daytime sleepiness: Code(s): G47.19 - Other hypersomnia Category: Medical Plan HST reviewed with pt mild inessa will start cpap therapy and >4hours nightly for compliance. RLS PLMS on Pramipexole continued twitching of legs. PLMS causing fragmented sleep, will rx NIDRA, he no longer has the loop monitor or any devices. Labs r/o deficiencies Medications: New [Nidra RLS Tonic Motion device] As directed 2 ea 0RF RLS / PLMD G25.81 - Restless legs syndrome, G47.61 - Periodic limb movement disorder [Nidra RLS Tonic Motion device] As directed 2 ea 0RF RLS / PLMD G25.81 - Restless legs syndrome, G47.61 - Periodic limb movement disorder Patient Instructions: Please complete the following fasting labs to rule out deficiencies. CBC/CMP/ B12/ Vit D/ TSH/ Homocysteine and MMA/ Ferritin. Sleep Hygiene provided: set a scheduled bedtime and wake time to help regulate the circadian rhythm and balance the release of pituitary hormones. Sleep in a dark room, temperatures below 68 degrees, and no devices n bed. Limit caffeinated products 6 hours prior to bed, and limit fluids 2-4 hours prior to bed. Gentle night yoga, diffusing essential oils, and playing soft music can be relaxing. Coding Level of Care Code Est Pt Level 4 (31205) Diagnoses INESSA (obstructive sleep apnea) G47.33 Periodic limb movements of sleep G47.61 Restless leg syndrome G25.81 Excessive daytime sleepiness G47.19
[2025-08-29 09:01] VITALS: BP 112/80; PULSE 78; O2SAT 96; BMI 26.6
== END 2025-08-29 09:48 | disposition home or self-care (01) ==
LOC: HO.HSMS 08:49
PROVIDERS: PCP Internal Medicine; Visit Provider Physician Assistant Medical
DX: G47.33 Obstructive sleep apnea (adult) (pediatric) (principal); G47.61 Periodic limb movement disorder; G25.81 Restless legs syndrome; G47.19 Other hypersomnia
CPT/HCPCS: 99214

== ENCOUNTER → 2025-08-29 08:48 | Outpatient (BNVA) | payer MEDICARE, SELFPAY | PROVIDERS: PCP Internal Medicine; Visit Provider Physician Assistant Medical | DX: G47.33 Obstructive sleep apnea (adult) (pediatric) (principal); G47.61 Periodic limb movement disorder; G25.81 Restless legs syndrome; G47.19 Other hypersomnia | CPT/HCPCS: 99212 ==